=== PATIENT | female | born 1970 | race Caucasian/White ===

== ENCOUNTER 2018-01-26 11:44 | Outpatient (CLI) | payer MEDICAID, SELFPAY ==
[2018-01-26 13:10] LABS: Magnesium 1.6 mg/dL (1.8-2.4)
[2018-01-26 13:59] LABS: ESR 43 MM/HR (0-20)
[2018-01-26 15:12] LABS: Anion Gap 9.2 mmol/L (3-11); BUN 19 mg/dL (7-18); CO2 28.8 mmol/L (21.0-32.0); CREATININE 0.78 mg/dL (0.55-1.02); Calcium 8.5 mg/dL (8.5-10.1); Chloride 103 mmol/L (98-107); Glucose 96 mg/dL (70-100); Potassium 3.7 mmol/L (3.5-5.1); Sodium 141 mmol/L (136-145)
[2018-01-27 13:38] LABS: Lyme Ab w Rflx to Lyme Confirm Negative
[2018-01-27 23:57] LABS: Anaplasma phagocytophilum Negative (Negative); B. miyamotoi PCR Negative (Negative); Babesia divergens/MO-1 Negative (Negative); Babesia duncani Negative (Negative); Babesia microti Negative (Negative); Ehrlichia chaffeensis Negative (Negative); Ehrlichia ewingii/canis Negative (Negative); Ehrlichia muris eauclairensis Negative (Negative)
[2018-01-30 12:41] LABS: Rheumatoid Factor <8 IU/mL (<12.5)
[2018-01-30 16:03] LABS: ANA Interpretation Negative (NEGAT)
== END 2018-01-26 12:04 ==
PROVIDERS: PCP Nurse Practitioner Family; Visit Provider Nurse Practitioner Family
DX: M25.50 Pain in unspecified joint (principal); E83.42 Hypomagnesemia
CPT/HCPCS: 36415; 80048; 85652; 83735; 86038; 86431; 86618; 87798

== ENCOUNTER 2018-03-07 11:05 | Outpatient (CLI) | payer MEDICAID, SELFPAY ==
[2018-03-07 11:49] LABS: Anion Gap 9.3 mmol/L (3-11); BUN 17 mg/dL (7-18); CO2 27.7 mmol/L (21.0-32.0); Calcium 8.7 mg/dL (8.5-10.1); Chloride 101 mmol/L (98-107); Glucose 100 mg/dL (70-100); Magnesium 1.7 mg/dL (1.8-2.4); Potassium 4.1 mmol/L (3.5-5.1); Sodium 138 mmol/L (136-145)
== END 2018-03-07 11:25 ==
PROVIDERS: PCP Nurse Practitioner Family; Visit Provider Nurse Practitioner Family
DX: I10 Essential (primary) hypertension (principal); E83.42 Hypomagnesemia
CPT/HCPCS: 36415; 80048; 83735

== ENCOUNTER 2018-03-26 13:04 | Emergency (ER) | payer MEDICAID, SELFPAY ==
[2018-03-26 13:15] VITALS: BP 126/81; PULSE 88; RESP 16; TEMP 36.7; O2SAT 95
--- NOTE | 2018-03-26 13:24 | DI.RAD_ITS ---
SYMPTOM/DIAGNOSIS: LT DISTAL MIDDLE FINGER PAIN LEFT MIDDLE FINGER: Four views were obtained. No fracture is seen.
--- NOTE | 2018-03-26 13:25 | W.ED.GENAD ---
Discharge Plan Disposition Patient Disposition: HOME Discharge Details Chief Complaint: Orthopedic Clinical Impression: Other sprain of left middle finger, initial encounter, Hand pain, right Primary Care Provider: Malka Reis ED Provider: Se Moore Home Meds and New Rx's Prescriptions: Continue nifedipine 30 mg tablet extended release 30 mg PO DAILY Qty: 90 RF: 0 loratadine [Claritin] 10 mg tablet 10 mg PO DAILY Qty: 90 RF: 1 ranitidine HCl [Zantac Maximum Strength] 150 mg tablet 150 mg PO DAILY Qty: 90 RF: 3 ibuprofen 200 MG tablet 4 tab PO PRN RF: 0 fluticasone [Flovent HFA] 12 GM HFA aerosol inhaler 110 mcg Inhalation BID Qty: 1 RF: 4 albuterol sulfate [Proventil HFA] 6.7 GM HFA aerosol inhaler 1 - 2 puff Inhalation Q4H PRN Qty: 3 RF: 3 simvastatin 10 MG tablet 10 mg PO DAILY Qty: 90 RF: 3 lancets [OneTouch UltraSoft Lancets] 1 EACH misc 1 ea Miscellaneous BID PRNQty: 200 RF: 4 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 meter [9CookiesTouch Ultra2] 1 EACH kit 1 ea Miscellaneous DAILY Qty: 1 RF: 0 metformin 1,000 MG tablet 1,000 mg PO BID Qty: 180 RF: 4 levothyroxine 125 MCG tablet 125 mcg PO DAILY Qty: 90 RF: 4 insulin glargine [Lantus Solostar U-100 Insulin] 100 UNIT/1 ML insulin pen 30 unit Sub-Q HS Qty: 1 RF: 3 pen needle, diabetic 1 EACH needle 1 ea Miscellaneous DAILY Qty: 100 RF: 4 ONETOUCH ULTRA TEST STRIPS 1 EACH strip 1 ea Miscellaneous QID PRNQty: 400 RF: 4 ipratropium-albuterol 3 ML solution for nebulization 3 ml Inhalation QID PRNQty: 1 RF: 3 losartan 25 MG tablet 25 mg PO BID Qty: 180 RF: 4 magnesium chloride [Mag 64] 64 mg tablet,delayed release (DR/EC) 128 mg PO BID Qty: 120 RF: 2 Discharge Instructions Additional Instructions: follow up with Dr. Khan, call his office tomorrow for an appointment you can take 1000mg tylenol and 600mg ibuprofen every 6 hours for pain as needed Medical Decision Making 47 yo female states she was pushing down a blanket and her distal left middle finger bent back and she had pain at the DIP joint. She has full flexion at all the joints and extension at mcp and pcp joint but unable to extend at the dip joint of this finger.Will xray to eval for fx though likely has extensor tendor injury which will need outpatient f/u xray shows no fracture on my read. She is also stating that her right hand has been intermittently painful and swollen off and on, no swelling now, will xray to eval for possible evidence of osteo or less likely cancer, no redness or fevers so unlikely infection xrays negative on my read. Placed her in fingerstack splint of the left middle finger for suspect distal extensor tendon injury, she has seen Dr. Khan in the past and prefers to f/u with him. Differential Diagnosis sprain, tendon injury, contusion, fx Imaging Data Radiologic Study: Attestation: I personally reviewed and interpreted this imaging study as follows: Imaging: X-Ray My impression: no acute findings Radiologic Study #2: Attestation: I personally reviewed and interpreted this imaging study as follows: Imaging: X-Ray My impression: no acute findings HPI General Mode of arrival: ambulatory. Date/Time Provider Initiated Documentation: 03/26/18 13:24. Limitations to Documentation: no limitations. Information obtained by: patient. History of Present Illness 47 year old F presents to the emergency department with the chief complaint of left middle finger pain, described as moderate, with intensity rated at 5. Quality is described as aching, and is localized to the left and upper extremity. Patient reports no radiation. Patient started experiencing this hour(s) (1) and it has been constant. No relieving factors improve symptom(s), No exacerbating factors reported . Patient notes no other symptoms.. Patient did receive the following treatments prior to arrival, none Related Data Home Medications Medication Instructions Recorded Confirmed ibuprofen 4 tab PO PRN 09/12/13 03/26/18 fluticasone [Flovent HFA] 110 mcg INHALATION BID #1 inhaler 10/18/16 03/26/18 albuterol sulfate [Proventil HFA] 1 - 2 puff INHALATION Q4H PRN #3 03/03/17 03/26/18 inhaler 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 meter [OneTouch #1 kit 10/17/17 03/26/18 Ultra2] insulin glargine [Lantus Solostar 30 unit SUB-Q HS #1 box 10/17/17 03/26/18 U-100 Insulin] lancets [OneTouch UltraSoft #200 ea 10/17/17 03/26/18 Lancets] levothyroxine 125 mcg PO DAILY #90 tab 10/17/17 03/26/18 metformin 1,000 mg PO BID #180 tab-cap 10/17/17 03/26/18 pen needle, diabetic #100 ndl 10/17/17 03/26/18 simvastatin 10 mg PO DAILY #90 tab-cap 10/17/17 03/26/18 ipratropium-albuterol 3 ml INHALATION QID PRN #1 ea 11/21/17 03/26/18 losartan 25 mg PO BID #180 tab-cap 11/21/17 03/26/18 loratadine 10 mg tablet 10 mg PO DAILY #90 tab 01/26/18 03/26/18 ranitidine 150 mg tablet 150 mg PO DAILY #90 tab-cap 02/27/18 03/26/18 magnesium 64 mg (magnesium 128 mg PO BID #120 tab 03/13/18 03/26/18 chloride) tablet,delayed release nifedipine ER 30 mg 30 mg PO DAILY #90 tab 03/16/18 03/26/18 tablet,extended release Previous Rx's Medication Instructions Recorded albuterol sulfate [Proventil HFA] 1 - 2 puff INHALATION Q4H PRN #3 03/03/17 inhaler 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 meter [OneTouch #1 kit 10/17/17 Ultra2] insulin glargine [Lantus Solostar 30 unit SUB-Q HS #1 box 10/17/17 U-100 Insulin] levothyroxine 125 mcg PO DAILY #90 tab 10/17/17 metformin 1,000 mg PO BID #180 tab-cap 10/17/17 pen needle, diabetic #100 ndl 10/17/17 simvastatin 10 mg PO DAILY #90 tab-cap 10/17/17 losartan 25 mg PO BID #180 tab-cap 11/21/17 loratadine 10 mg tablet 10 mg PO DAILY #90 tab 01/26/18 ranitidine 150 mg tablet 150 mg PO DAILY #90 tab-cap 02/27/18 magnesium 64 mg (magnesium 128 mg PO BID #120 tab 03/13/18 chloride) tablet,delayed release nifedipine ER 30 mg 30 mg PO DAILY #90 tab 03/16/18 tablet,extended release Allergies Allergy/AdvReac Type Severity Reaction Status Date / Time No Known Allergies Allergy Unverified 03/26/18 13:26 General Stated Complaint: Orthopedic SAMMY: 4 Review of Systems Review of Systems All systems reviewed & are unremarkable except as noted in HPI and below Constitutional Denies chills and Denies fever(s) ENT Denies change in voice Cardiovascular Denies chest pain and Denies dyspnea Respiratory Denies dyspnea Gastrointestinal Denies abdominal pain, Denies nausea and Denies vomiting Genitourinary Denies dysuria Musculoskeletal Denies joint swelling Allergic/Immunologic Denies urticaria PFSH Family History Mother Essential hypertension Heart disease Hyperlipidemia Alcohol abuse Father Essential hypertension Diabetes Heart disease Cerebrovascular accident Hyperlipidemia Alcohol abuse Sister Depression Substance abuse Sister No problems noted. Brother No problems noted. Brother No problems noted. Son Asthma Daughter Asthma Depression Daughter Asthma Depression Maternal Grandfather Alcohol abuse Diabetes Asthma Cerebrovascular accident Essential hypertension Hyperlipidemia Heart disease Maternal Grandmother Essential hypertension Heart disease Paternal Grandfather No problems noted. Paternal Grandmother No problems noted. 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 Smoking/Tobacco Use Status: Never alcohol intake: never substance use type: does not use seatbelt use: always Surgical History History of repair of left hip joint (Inactive) Exam Const General: no acute distress Orientation: alert HENMT Head: normal to inspection Ears: external ears normal General nose exam: external nose normal Mouth: moist mucous membranes Eyes General: appearance normal, both eyes and all related structures Neck Neck: normal visual inspection Resp Effort & Inspection: normal respiratory effort and able to speak in complete sentences Cardio Rate: regular rate Skin General skin exam: no rashes or lesions noted Neuro General: alert and oriented x3 Extrem General: normal capillary refill Psych Mental Status: mental status grossly normal Course Vital Signs Temperature 36.7 C 03/26/18 13:15 Pulse 88 03/26/18 13:15 Respiratory Rate 16 03/26/18 13:15 Blood Pressure 126/81 03/26/18 13:15 Pulse Oximetry 95 03/26/18 13:15 Temperature 36.7 C 03/26/18 13:15 Temperature Source Temporal Artery Scan 03/26/18 13:15 Pulse 88 03/26/18 13:15 Respiratory Rate 16 03/26/18 13:15 Blood Pressure 126/81 03/26/18 13:15 Blood Pressure Position Sitting 03/26/18 13:15 Pulse Oximetry 95 03/26/18 13:15 Oxygen Delivery Method Room Air 03/26/18 13:15 Oxygen Flow Rate 0 03/26/18 13:15 Pain Level 2 03/26/18 13:15
--- NOTE | 2018-03-26 13:28 | ED.GENADUL_ITS ---
Discharge Plan Disposition Patient Disposition: HOME Discharge Details Chief Complaint: Orthopedic Clinical Impression: Other sprain of left middle finger, initial encounter, Hand pain, right Primary Care Provider: Malka Reis ED Provider: Se Moore Home Meds and New Rx's Prescriptions: Continue nifedipine 30 mg tablet extended release 30 mg PO DAILY Qty: 90 RF: 0 loratadine [Claritin] 10 mg tablet 10 mg PO DAILY Qty: 90 RF: 1 ranitidine HCl [Zantac Maximum Strength] 150 mg tablet 150 mg PO DAILY Qty: 90 RF: 3 ibuprofen 200 MG tablet 4 tab PO PRN RF: 0 fluticasone [Flovent HFA] 12 GM HFA aerosol inhaler 110 mcg Inhalation BID Qty: 1 RF: 4 albuterol sulfate [Proventil HFA] 6.7 GM HFA aerosol inhaler 1 - 2 puff Inhalation Q4H PRN Qty: 3 RF: 3 simvastatin 10 MG tablet 10 mg PO DAILY Qty: 90 RF: 3 lancets [OneTouch UltraSoft Lancets] 1 EACH misc 1 ea Miscellaneous BID PRNQty: 200 RF: 4 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 meter [[employer] Kin PacksTouch Ultra2] 1 EACH kit 1 ea Miscellaneous DAILY Qty: 1 RF: 0 metformin 1,000 MG tablet 1,000 mg PO BID Qty: 180 RF: 4 levothyroxine 125 MCG tablet 125 mcg PO DAILY Qty: 90 RF: 4 insulin glargine [Lantus Solostar U-100 Insulin] 100 UNIT/1 ML insulin pen 30 unit Sub-Q HS Qty: 1 RF: 3 pen needle, diabetic 1 EACH needle 1 ea Miscellaneous DAILY Qty: 100 RF: 4 ONETOUCH ULTRA TEST STRIPS 1 EACH strip 1 ea Miscellaneous QID PRNQty: 400 RF: 4 ipratropium-albuterol 3 ML solution for nebulization 3 ml Inhalation QID PRNQty: 1 RF: 3 losartan 25 MG tablet 25 mg PO BID Qty: 180 RF: 4 magnesium chloride [Mag 64] 64 mg tablet,delayed release (DR/EC) 128 mg PO BID Qty: 120 RF: 2 Discharge Instructions Additional Instructions: follow up with Dr. Khan, call his office tomorrow for an appointment you can take 1000mg tylenol and 600mg ibuprofen every 6 hours for pain as needed Medical Decision Making 47 yo female states she was pushing down a blanket and her distal left middle finger bent back and she had pain at the DIP joint. She has full flexion at all the joints and extension at mcp and pcp joint but unable to extend at the dip joint of this finger.Will xray to eval for fx though likely has extensor tendor injury which will need outpatient f/u xray shows no fracture on my read. She is also stating that her right hand has been intermittently painful and swollen off and on, no swelling now, will xray to eval for possible evidence of osteo or less likely cancer, no redness or fevers so unlikely infection xrays negative on my read. Placed her in fingerstack splint of the left middle finger for suspect distal extensor tendon injury, she has seen Dr. Khan in the past and prefers to f/u with him. Differential Diagnosis sprain, tendon injury, contusion, fx Imaging Data Radiologic Study: Attestation: I personally reviewed and interpreted this imaging study as follows: Imaging: X-Ray My impression: no acute findings Radiologic Study #2: Attestation: I personally reviewed and interpreted this imaging study as follows: Imaging: X-Ray My impression: no acute findings HPI General Mode of arrival: ambulatory . Date/Time Provider Initiated Documentation: 03/26/18 13:24 . Limitations to Documentation: no limitations . Information obtained by: patient . History of Present Illness 47 year old F presents to the emergency department with the chief complaint of left middle finger pain, described as moderate, with intensity rated at 5. Quality is described as aching, and is localized to the left and upper extremity. Patient reports no radiation. Patient started experiencing this hour(s) (1) and it has been constant. No relieving factors improve symptom(s ), No exacerbating factors reported . Patient notes no other symptoms.. Patient did receive the following treatments prior to arrival, none Related Data Home Medications Medication Instructions Recorded Confirmed ibuprofen 4 tab PO PRN 09/12/13 03/26/18 fluticasone [Flovent HFA] 110 mcg INHALATION BID #1 inhaler 10/18/16 03/26/18 albuterol sulfate [Proventil HFA] 1 - 2 puff INHALATION Q4H PRN #3 03/03/17 inhaler 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 meter [OneTouch #1 kit 10/17/17 03/26/18 Ultra2] insulin glargine [Lantus Solostar 30 unit SUB-Q HS #1 box 10/17/17 03/26/18 U-100 Insulin] lancets [OneTouch UltraSoft #200 ea 10/17/17 03/26/18 Lancets] levothyroxine 125 mcg PO DAILY #90 tab 10/17/17 03/26/18 metformin 1,000 mg PO BID #180 tab-cap 10/17/17 03/26/18 pen needle, diabetic #100 ndl 10/17/17 03/26/18 simvastatin 10 mg PO DAILY #90 tab-cap 10/17/17 03/26/18 ipratropium-albuterol 3 ml INHALATION QID PRN #1 ea 11/21/17 03/26/18 losartan 25 mg PO BID #180 tab-cap 11/21/17 03/26/18 loratadine 10 mg tablet 10 mg PO DAILY #90 tab 01/26/18 03/26/18 ranitidine 150 mg tablet 150 mg PO DAILY #90 tab-cap 02/27/18 03/26/18 magnesium 64 mg (magnesium 128 mg PO BID #120 tab 03/13/18 03/26/18 chloride) tablet,delayed release nifedipine ER 30 mg 30 mg PO DAILY #90 tab 03/16/18 03/26/18 tablet,extended release Previous Rx's Medication Instructions Recorded albuterol sulfate [Proventil HFA] 1 - 2 puff INHALATION Q4H PRN #3 03/03/17 inhaler 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 meter [OneTouch #1 kit 10/17/17 Ultra2] insulin glargine [Lantus Solostar 30 unit SUB-Q HS #1 box 10/17/17 U-100 Insulin] levothyroxine 125 mcg PO DAILY #90 tab 10/17/17 metformin 1,000 mg PO BID #180 tab-cap 10/17/17 pen needle, diabetic #100 ndl 10/17/17 simvastatin 10 mg PO DAILY #90 tab-cap 10/17/17 losartan 25 mg PO BID #180 tab-cap 11/21/17 loratadine 10 mg tablet 10 mg PO DAILY #90 tab 01/26/18 ranitidine 150 mg tablet 150 mg PO DAILY #90 tab-cap 02/27/18 magnesium 64 mg (magnesium 128 mg PO BID #120 tab 03/13/18 chloride) tablet,delayed release nifedipine ER 30 mg 30 mg PO DAILY #90 tab 03/16/18 tablet,extended release Allergies Allergy/AdvReac Type Severity Reaction Status Date / Time No Known Allergies Allergy Unverified 03/26/18 13:26 General Stated Complaint: Orthopedic SAMMY: 4 Review of Systems Review of Systems All systems reviewed & are unremarkable except as noted in HPI and below Constitutional Denies chills and Denies fever(s) ENT Denies change in voice Cardiovascular Denies chest pain and Denies dyspnea Respiratory Denies dyspnea Gastrointestinal Denies abdominal pain, Denies nausea and Denies vomiting Genitourinary Denies dysuria Musculoskeletal Denies joint swelling Allergic/Immunologic Denies urticaria PFSH Family History Mother Essential hypertension Heart disease Hyperlipidemia Alcohol abuse Father Essential hypertension Diabetes Heart disease Cerebrovascular accident Hyperlipidemia Alcohol abuse Sister Depression Substance abuse Sister No problems noted. Brother No problems noted. Brother No problems noted. Son Asthma Daughter Asthma Depression Daughter Asthma Depression Maternal Grandfather Alcohol abuse Diabetes Asthma Cerebrovascular accident Essential hypertension Hyperlipidemia Heart disease Maternal Grandmother Essential hypertension Heart disease Paternal Grandfather No problems noted. Paternal Grandmother No problems noted. 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 Smoking/Tobacco Use Status: Never alcohol intake: never substance use type: does not use seatbelt use: always Surgical History History of repair of left hip joint (Inactive) Exam Const General: no acute distress Orientation: alert HENMT Head: normal to inspection Ears: external ears normal General nose exam: external nose normal Mouth: moist mucous membranes Eyes General: appearance normal, both eyes and all related structures Neck Neck: normal visual inspection Resp Effort & Inspection: normal respiratory effort and able to speak in complete sentences Cardio Rate: regular rate Skin General skin exam: no rashes or lesions noted Neuro General: alert and oriented x3 Extrem General: normal capillary refill Psych Mental Status: mental status grossly normal Course Vital Signs Temperature 36.7 C 03/26/18 13:15 Pulse 88 03/26/18 13:15 Respiratory Rate 16 03/26/18 13:15 Blood Pressure 126/81 03/26/18 13:15 Pulse Oximetry 95 03/26/18 13:15 Temperature 36.7 C 03/26/18 13:15 Temperature Source Temporal Artery Scan 03/26/18 13:15 Pulse 88 03/26/18 13:15 Respiratory Rate 16 03/26/18 13:15 Blood Pressure 126/81 03/26/18 13:15 Blood Pressure Position Sitting 03/26/18 13:15 Pulse Oximetry 95 03/26/18 13:15 Oxygen Delivery Method Room Air 03/26/18 13:15 Oxygen Flow Rate 0 03/26/18 13:15 Pain Level 2 03/26/18 13:15
--- NOTE | 2018-03-26 13:49 | DI.RAD_ITS ---
SYMPTOM/DIAGNOSIS: PAIN AND INTERMITTENT SWELLING RIGHT HAND: Three views were obtained. No bony abnormality is seen.
== END 2018-03-26 15:18 | disposition home or self-care (01) ==
PROVIDERS: Emergency Provider Emergency Medicine; PCP Nurse Practitioner Family
DX: S63.613A Unspecified sprain of left middle finger, initial encounter (principal); M79.641 Pain in right hand; X50.1XXA Overexertion from prolonged static or awkward postures, initial encounter; E11.9 Type 2 diabetes mellitus without complications; Z79.84 Long term (current) use of oral hypoglycemic drugs
CPT/HCPCS: 99284; 73130; 73140; 99282

== ENCOUNTER 2018-04-10 11:32 | Outpatient (CLI) | payer MEDICAID, SELFPAY ==
[2018-04-10 13:56] LABS: ALT 21 U/L (12-78); AST 13 U/L (15-37); Albumin 3.4 g/dL (3.4-5.0); Alkaline Phosphatase 65 U/L (46-116); Anion Gap 12.7 mmol/L (3-11); BUN 20 mg/dL (7-18); Bilirubin, Total 0.2 mg/dL (0.2-1.0); CO2 25.3 mmol/L (21.0-32.0); CREATININE 0.74 mg/dL (0.55-1.02); Calcium 8.7 mg/dL (8.5-10.1); Chloride 103 mmol/L (98-107); FREE T4 1.37 ng/dL (0.76-1.46); Glucose 100 mg/dL (70-100); Magnesium 1.5 mg/dL (1.8-2.4); Potassium 3.8 mmol/L (3.5-5.1); Sodium 141 mmol/L (136-145); TSH 0.74 uIU/mL (0.358-3.74); Total Protein 6.8 g/dL (6.4-8.2)
== END 2018-04-10 11:52 ==
PROVIDERS: PCP Nurse Practitioner Family; Visit Provider Nurse Practitioner Family
DX: E03.9 Hypothyroidism, unspecified (principal); E11.9 Type 2 diabetes mellitus without complications; E78.5 Hyperlipidemia, unspecified; I10 Essential (primary) hypertension
CPT/HCPCS: 36415; 80053; 83036; 83735; 84439; 84443

== ENCOUNTER 2018-09-06 09:21 | Outpatient (CLI) | payer MEDICAID, SELFPAY ==
[2018-09-06 11:45] LABS: ALT 36 U/L (12-78); AST 23 U/L (15-37); Albumin 3.5 g/dL (3.4-5.0); Alkaline Phosphatase 69 U/L (46-116); Anion Gap 8.3 mmol/L (3-11); BUN 17 mg/dL (7-18); Bilirubin, Total 0.2 mg/dL (0.2-1.0); CO2 29.7 mmol/L (21.0-32.0); CREATININE 0.92 mg/dL (0.55-1.02); Calcium 9.1 mg/dL (8.5-10.1); Chloride 103 mmol/L (98-107); Cholesterol 178 mg/dL (50-200); Glucose 122 mg/dL (70-100); HDL Cholesterol 36 mg/dL (40-60); LDL CHOLESTEROL 126 mg/dL (<100); Potassium 4.3 mmol/L (3.5-5.1); Sodium 141 mmol/L (136-145); TSH 1.51 uIU/mL (0.358-3.74); Total Protein 6.8 g/dL (6.4-8.2); Triglyceride 124 mg/dL (30-150)
[2018-09-06 11:58] LABS: Hemoglobin A1C 6.3 % (4.5-6.2)
[2018-09-06 12:04] LABS: FREE T4 1.41 ng/dL (0.76-1.46)
[2018-09-08 13:28] LABS: Magnesium 1.7 mg/dL (1.8-2.4)
== END 2018-09-06 09:41 ==
PROVIDERS: PCP Nurse Practitioner Family; Visit Provider Nurse Practitioner Family
DX: E03.9 Hypothyroidism, unspecified (principal); E11.9 Type 2 diabetes mellitus without complications; E83.42 Hypomagnesemia
CPT/HCPCS: 36415; 80053; 80061; 83721; 83036; 83735; 84439; 84443

== ENCOUNTER 2018-09-08 13:54 | Outpatient (CLI) | payer MEDICAID, SELFPAY ==
--- NOTE | 2018-09-08 12:00 | DI.RAD_ITS ---
SYMPTOMS/DIAGNOSIS: POSTERIOR LEFT HEEL PAIN, M79.672 LEFT ANKLE AND LEFT FOOT: Three views of the ankle and three views of the foot were obtained. The ankle mortise is well maintained. There are prominent hypertrophic spurs of the Achilles and plantar fascia attachments on the calcaneus. Minimal mid foot hypertrophic degenerative changes are noted. No other significant bony abnormality is seen. Some nonspecific calcific or ossific densities are also seen associated with the Achilles insertion.
== END 2018-09-08 14:14 ==
PROVIDERS: PCP Nurse Practitioner Family; Visit Provider Nurse Practitioner Family
DX: M79.672 Pain in left foot (principal); M77.32 Calcaneal spur, left foot; M19.072 Primary osteoarthritis, left ankle and foot
CPT/HCPCS: 73610; 73630

== ENCOUNTER 2018-10-13 08:50 | Outpatient (CLI) | payer MEDICAID, SELFPAY | END 2018-10-13 09:10 | PROVIDERS: PCP Nurse Practitioner Family; Visit Provider Orthopaedic Surgery | DX: Z01.818 Encounter for other preprocedural examination (principal) ==

== ENCOUNTER 2018-10-21 13:58 | Emergency (ER) | payer MEDICAID, SELFPAY ==
[2018-10-21] VITALS (33 sets, daily range): BP systolic 148–185; BP diastolic 93–115; PULSE 66–95; RESP 7–34; TEMP 36.7–36.8; O2SAT 95–98
[2018-10-21 14:26] LABS: Bilirubin Negative (Negative); Blood Trace-intact (Negative); Clarity Clear; Glucose Negative (Negative); Ketones Negative (Negative); Leukocyte Esterase Negative (Negative); Nitrite Negative (Negative); Urobilinogen 0.2 EU/dL (Up TO 0.2)
[2018-10-21 14:47] LABS: RBC 0-2 (0-2); WBC Negative HPF (0-5)
[2018-10-21 14:48] LABS: Bacteria Negative HPF (Negative); C & S Indicated? No; Casts Negative LPF (Negative); Crystals Negative HPF (Negative); Epithelial Cells Few HPF (Negative); Mucus Negative (Negative); Other Cells Rare Renal (Negative)
--- NOTE | 2018-10-21 14:52 | W.ED.GENAD ---
Discharge Plan Disposition Patient Disposition: HOME Discharge Details Chief Complaint: FlankPain Clinical Impression: Hypertension, Abdominal pain Primary Care Provider: Malka Reis ED Provider: Guzman Hale Home Meds and New Rx's Prescriptions: Continued albuterol sulfate [Proventil HFA] 90 mcg/actuation HFA aerosol inhaler 1 - 2 puff Inhalation Q4H PRN Qty: 6.7 RF: 4 Flovent HFA 110 mcg/actuation HFA aerosol inhaler 110 mcg Inhalation BID Qty: 12 RF: 4 fluticasone propionate [Allergy Relief (fluticasone)] 50 mcg/actuation spray,suspension 2 spray MIKEL DAILY PRN (Reason: allergy symptoms) Qty: 15.8 RF: 4 ranitidine HCl [Zantac Maximum Strength] 150 mg tablet 150 mg PO DAILY Qty: 90 RF: 3 metformin 1,000 mg tablet 1,000 mg PO BID Qty: 180 RF: 4 losartan 25 mg tablet 25 mg PO BID Qty: 180 RF: 4 simvastatin 10 mg tablet 10 mg PO DAILY Qty: 90 RF: 4 magnesium L-lactate 84 mg tablet extended release 84 mg PO BID RF: 0 acetaminophen [Tylenol Extra Strength] 500 mg tablet 1,000 mg PO Q6H PRNRF: 0 ibuprofen [Advil] 200 mg tablet 200 mg PO QID PRNRF: 0 hydrochlorothiazide 12.5 mg tablet 25 mg PO DAILY Qty: 90 RF: 4 lancets [OneTouch UltraSoft Lancets] 1 EACH misc 1 ea Miscellaneous BID PRNQty: 200 RF: 4 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 meter [OneTouch Ultra2] 1 EACH kit 1 ea Miscellaneous DAILY Qty: 1 RF: 0 pen needle, diabetic 1 EACH needle 1 ea Miscellaneous DAILY Qty: 100 RF: 4 ONETOUCH ULTRA TEST STRIPS 1 EACH strip 1 ea Miscellaneous QID PRNQty: 400 RF: 4 ipratropium-albuterol 3 ML solution for nebulization 3 ml Inhalation QID PRNQty: 1 RF: 3 levothyroxine 112 mcg capsule 112 mcg PO DAILY Qty: 90 RF: 4 loratadine [Claritin] 10 mg tablet 10 mg PO DAILY PRN (Reason: allergy symptoms) Qty: 90 RF: 4 Lantus Solostar U-100 Insulin 100 unit/mL (3 mL) insulin pen 26 unit Sub-Q HS Qty: 15 RF: 4 diclofenac sodium 75 mg Tablet,Delayed Release (Dr/Ec) BID PRNRF: 0 No Action amlodipine 5 mg tablet 5 mg PO DAILY Qty: 90 RF: 0 Discharge Instructions Instructions: Abdominal Pain (ED), Hypertension (ED) Additional Instructions: Please contact your primary care physician to arrange follow-up. Call on Tuesday. Return to the ER for any worsening or new concerning symptoms. Referrals: Malka Reis NP [Primary Care Provider] - Discharge Data Discharge Date/Time-TO BE ENTERED AT DEPARTURE: 10/21/18 20:15 Medical Decision Making 14:55 --48-year-old female with history of diabetes, hypertension, hyperlipidemia, GERD, here with left flank pain since early this morning and intermittent upper abdominal pain for the past 2 to 3 days. Patient has recently had elevated blood pressure and antihypertensives have been increased. Unclear etiology for symptoms at this point. Plan to check screening labs including LFTs, lipase, electrolytes and CK. --labs reviewed and nondiagnostic. Mild leukocytosis noted. Hypomagnesemia noted. Will give 1 g of magnesium IV. Hypokalemia noted. We will give potassium 20 mEq IV after completion of magnesium. --CT of the abdomen and pelvis was interpreted by radiology: FINDINGS: Partially calcified gallbladder wall. Intrauterine device in the lower uterine segment. Diverticulosis without evidence of diverticulitis. Normal appearing solid organs. No intestinal obstruction. No obstructive uropathy. No free fluid. No free air. No inflammatory changes. IMPRESSION: No specific etiology identified for the patient's symptoms. --Patient reassessed and continues to have discomfort. Patient declined IV analgesia. -- All results were discussed with the patient. Patient understands importance of timely outpatient follow-up. Patient continues to have elevated blood pressure. Patient's PCP is not available at this time to discuss changes to antihypertensives. Patient will continue to monitor and foolowup with primary care physician about adjusting antihypertensive. Disposition decision was made weighing the risks and benefits of hospitalization versus outpatient treatment, the risk for further decompensation, and the patient's wishes. The patient was stable and requested discharge. Prior to discharge, my usual and customary return precautions were reviewed with the patient - this included follow-up instructions and reason to return to the emergency department if condition worsens, does not improve as expected, or other new concerns arise. HPI General Mode of arrival: ambulatory. Date/Time Provider Initiated Documentation: 10/21/18 14:14. Limitations to Documentation: no limitations. Information obtained by: patient. HPI Narrative: 48-year-old female with history of type 2 diabetes, hypertension, hyperlipidemia, asthma, GERD, here with chief complaint of flank pain. Patient notes that last night sometime in the [place] she developed left flank pain. Pain is been waxing and waning since onset. Pain is described as an ache. Pain is moderate intensity. Patient also notes she has had intermittent, crampy upper abdominal pain for the past 2 to 3 days. Patient states yesterday she was urinating less than usual and it was dark. Today she urinated it was more clear. Patient notes she is had recently elevated blood pressure and has had both hydrochlorothiazide and losartan increased by her primary care physician. Diclofenac was recently discontinued. Related Data Home Medications Medication Instructions Recorded Confirmed 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 meter [OneTouch #1 kit 10/17/17 10/25/18 Ultra2] lancets [OneTouch UltraSoft #200 ea 10/17/17 10/25/18 Lancets] pen needle, diabetic #100 ndl 10/17/17 10/25/18 ipratropium-albuterol 3 ml INHALATION QID PRN #1 ea 11/21/17 10/25/18 ranitidine 150 mg tablet 150 mg PO DAILY #90 tab-cap 02/27/18 10/25/18 levothyroxine 112 mcg capsule 112 mcg PO DAILY #90 cap 04/10/18 10/25/18 loratadine 10 mg tablet 10 mg PO DAILY PRN #90 tab 04/10/18 10/25/18 albuterol sulfate HFA 90 1 - 2 puff INHALATION Q4H PRN #6.7 04/27/18 10/25/18 mcg/actuation aerosol inhaler gm fluticasone propionate 110 110 mcg INHALATION BID #12 gm 04/27/18 10/25/18 mcg/actuation HFA aerosol inhaler insulin glargine (U-100) 100 26 unit SUB-Q HS #15 ml 05/03/18 10/25/18 unit/mL (3 mL) subcutaneous pen fluticasone propionate 50 2 spray MIKEL DAILY PRN #15.8 gm 09/06/18 10/25/18 mcg/actuation nasal spray,suspension losartan 25 mg tablet 25 mg PO BID #180 tab-cap 09/08/18 10/25/18 metformin 1,000 mg tablet 1,000 mg PO BID #180 tab-cap 09/08/18 10/25/18 simvastatin 10 mg tablet 10 mg PO DAILY #90 tab-cap 09/08/18 10/25/18 acetaminophen 500 mg tablet 1,000 mg PO Q6H PRN tab 10/12/18 10/25/18 ibuprofen 200 mg tablet 200 mg PO QID PRN 10/12/18 10/25/18 magnesium L-lactate ER 84 mg 84 mg PO BID tab 10/12/18 10/25/18 tablet,extended release hydrochlorothiazide 12.5 mg tablet 25 mg PO DAILY #90 tab 10/16/18 10/25/18 diclofenac sodium BID PRN 10/21/18 10/25/18 amlodipine 5 mg tablet 5 mg PO DAILY #90 tab 10/25/18 10/25/18 Previous Rx's Medication Instructions Recorded 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 meter [Plum BabyTouch #1 kit 10/17/17 Ultra2] pen needle, diabetic #100 ndl 10/17/17 ranitidine 150 mg tablet 150 mg PO DAILY #90 tab-cap 02/27/18 levothyroxine 112 mcg capsule 112 mcg PO DAILY #90 cap 04/10/18 loratadine 10 mg tablet 10 mg PO DAILY PRN #90 tab 04/10/18 albuterol sulfate HFA 90 1 - 2 puff INHALATION Q4H PRN #6.7 04/27/18 mcg/actuation aerosol inhaler gm fluticasone propionate 110 110 mcg INHALATION BID #12 gm 04/27/18 mcg/actuation HFA aerosol inhaler insulin glargine (U-100) 100 26 unit SUB-Q HS #15 ml 05/03/18 unit/mL (3 mL) subcutaneous pen fluticasone propionate 50 2 spray MIKEL DAILY PRN #15.8 gm 09/06/18 mcg/actuation nasal spray,suspension losartan 25 mg tablet 25 mg PO BID #180 tab-cap 09/08/18 metformin 1,000 mg tablet 1,000 mg PO BID #180 tab-cap 09/08/18 simvastatin 10 mg tablet 10 mg PO DAILY #90 tab-cap 09/08/18 hydrochlorothiazide 12.5 mg tablet 25 mg PO DAILY #90 tab 10/16/18 amlodipine 5 mg tablet 5 mg PO DAILY #90 tab 10/25/18 Allergies Allergy/AdvReac Type Severity Reaction Status Date / Time No Known Allergies Allergy Verified 10/25/18 13:19 General Stated Complaint: FlankPain SAMMY: 3 Review of Systems Review of Systems All systems reviewed & are unremarkable except as noted in HPI and below Constitutional Denies body ache(s) and Denies fever(s) Gastrointestinal Reports as per HPI Genitourinary Reports as per HPI, Denies hematuria and Reports flank pain PFSH Medical History IUD surveillance (Inactive 09/01/17) Essential hypertension (Chronic) GERD (gastroesophageal reflux disease) (Chronic) Heavy menstrual bleeding (Chronic) Hyperlipidemia (Chronic) Hypothyroidism (Chronic) Mild persistent asthma (Chronic) Morbidly obese (Chronic) FLIP (obstructive sleep apnea) (Chronic) Patellofemoral arthritis of right knee (Chronic) Type 2 diabetes mellitus (Chronic) Surgical History History of repair of left hip joint (Inactive) Family History Mother Essential hypertension Heart disease Hyperlipidemia Alcohol abuse Father Essential hypertension Diabetes Heart disease Stroke Hyperlipidemia Alcohol abuse Sister Depression Substance abuse Sister No problems noted. Brother No problems noted. Brother No problems noted. Son Asthma Daughter Asthma Depression Daughter Asthma Depression Maternal Grandfather Alcohol abuse Diabetes Asthma Stroke Essential hypertension Hyperlipidemia Heart disease Maternal Grandmother Essential hypertension Heart disease Paternal Grandfather No problems noted. Paternal Grandmother No problems noted. 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 What type of physical activity do you participate in: walking Frequency: daily Seatbelt use: always Do you feel safe at home: Yes Do you feel safe in your relationship?: Yes Exam Const General: cooperative and no acute distress Nutritional Appearance: obese Orientation: alert and awake HENMT Head: normocephalic Mouth: moist mucous membranes Eyes Conjunctivae: normal conjunctivae Sclera: normal sclerae EOM: EOM intact bilaterally Neck Neck: trachea midline Resp Auscultation: clear to auscultation bilaterally, no rales, no rhonchi and no wheezes Cardio Jugular venous pressure: no JVD Rate: regular rate and not tachycardic Rhythm: regular rhythm GI Palpation: soft, not firm, no guarding, no masses, not rigid and tender in the epigastrum and in the LUQ Back/Spine/Pelvis Back: no CVA tenderness Skin General skin exam: no rashes or lesions noted Neuro General: alert, awake, oriented x3 and tone normal Extrem General: no edema Psych Appearance: grossly normal Mental Status: mental status grossly normal Course Vital Signs Temperature 36.7 C 10/21/18 14:03 Pulse 86 10/21/18 14:03 Respiratory Rate 16 10/21/18 14:03 Blood Pressure 178/107 H 10/21/18 14:03 Pulse Oximetry 95 10/21/18 14:03 Temperature 36.7 C 10/21/18 14:03 Temperature Source Tympanic 10/21/18 14:03 Pulse 86 10/21/18 14:03 Respiratory Rate 16 10/21/18 14:03 Respiratory Effort Non-Labored 10/21/18 14:19 Blood Pressure 178/107 H 10/21/18 14:03 Blood Pressure Position Sitting 10/21/18 14:03 Pulse Oximetry 95 10/21/18 14:03 Oxygen Delivery Method Room Air 10/21/18 14:03 Oxygen Flow Rate 0 10/21/18 14:03 Pain Level 5 10/21/18 14:20 Lab/Test Results Lab/Test Results: Laboratory Tests Range/Units 10/21/18 14:20 Urine Color (Yellow) Yellow Urine Clarity Clear Urine pH (5-8) 6.0 Ur Specific [place] (1.005-1.025) 1.020 Urine Protein (Negative) mg/dL Negative Urine Ketones (Negative) mg/dL Negative Urine Blood (Negative) Trace-intact H Urine Nitrite (Negative) Negative Urine Bilirubin (Negative) Negative Urine Urobilinogen (Up TO 0.2) EU/dL 0.2 Ur Leukocyte Esterase (Negative) Negative Urine RBC (0-2) 0-2 Urine WBC (0-5) HPF Negative Ur Epithelial Cells (Negative) HPF Few Urine Crystals (Negative) HPF Negative Urine Bacteria (Negative) HPF Negative Urine Casts (Negative) LPF Negative Urine Mucus (Negative) Negative Urine Other (Negative) Rare renal Ur Culture Indicated? No Urine Glucose (Negative) mg/dL Negative POC- Test(urine) Negative
--- NOTE | 2018-10-21 14:58 | ED.GENADUL_ITS ---
Discharge Plan Disposition Patient Disposition: HOME Discharge Details Chief Complaint: FlankPain Clinical Impression: Hypertension, Abdominal pain Primary Care Provider: Malka Reis ED Provider: Guzman Hale Home Meds and New Rx's Prescriptions: Continued albuterol sulfate [Proventil HFA] 90 mcg/actuation HFA aerosol inhaler 1 - 2 puff Inhalation Q4H PRN Qty: 6.7 RF: 4 Flovent HFA 110 mcg/actuation HFA aerosol inhaler 110 mcg Inhalation BID Qty: 12 RF: 4 fluticasone propionate [Allergy Relief (fluticasone)] 50 mcg/actuation spray,suspension 2 spray MIKEL DAILY PRN (Reason: allergy symptoms) Qty: 15.8 RF: 4 ranitidine HCl [Zantac Maximum Strength] 150 mg tablet 150 mg PO DAILY Qty: 90 RF: 3 metformin 1,000 mg tablet 1,000 mg PO BID Qty: 180 RF: 4 losartan 25 mg tablet 25 mg PO BID Qty: 180 RF: 4 simvastatin 10 mg tablet 10 mg PO DAILY Qty: 90 RF: 4 magnesium L-lactate 84 mg tablet extended release 84 mg PO BID RF: 0 acetaminophen [Tylenol Extra Strength] 500 mg tablet 1,000 mg PO Q6H PRNRF: 0 ibuprofen [Advil] 200 mg tablet 200 mg PO QID PRNRF: 0 hydrochlorothiazide 12.5 mg tablet 25 mg PO DAILY Qty: 90 RF: 4 lancets [OneTouch UltraSoft Lancets] 1 EACH misc 1 ea Miscellaneous BID PRNQty: 200 RF: 4 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 meter [OneTouch Ultra2] 1 EACH kit 1 ea Miscellaneous DAILY Qty: 1 RF: 0 pen needle, diabetic 1 EACH needle 1 ea Miscellaneous DAILY Qty: 100 RF: 4 ONETOUCH ULTRA TEST STRIPS 1 EACH strip 1 ea Miscellaneous QID PRNQty: 400 RF: 4 ipratropium-albuterol 3 ML solution for nebulization 3 ml Inhalation QID PRNQty: 1 RF: 3 levothyroxine 112 mcg capsule 112 mcg PO DAILY Qty: 90 RF: 4 loratadine [Claritin] 10 mg tablet 10 mg PO DAILY PRN (Reason: allergy symptoms) Qty: 90 RF: 4 Lantus Solostar U-100 Insulin 100 unit/mL (3 mL) insulin pen 26 unit Sub-Q HS Qty: 15 RF: 4 diclofenac sodium 75 mg Tablet,Delayed Release (Dr/Ec) BID PRNRF: 0 No Action amlodipine 5 mg tablet 5 mg PO DAILY Qty: 90 RF: 0 Discharge Instructions Instructions: Abdominal Pain (ED), Hypertension (ED) Additional Instructions: Please contact your primary care physician to arrange follow-up. Call on Tuesday. Return to the ER for any worsening or new concerning symptoms. Referrals: Malka Reis NP [Primary Care Provider] - Discharge Data Discharge Date/Time-TO BE ENTERED AT DEPARTURE: 10/21/18 20:15 Medical Decision Making 14:55 --48-year-old female with history of diabetes, hypertension, hyperlipidemia, GERD, here with left flank pain since early this morning and intermittent upper abdominal pain for the past 2 to 3 days. Patient has recently had elevated blood pressure and antihypertensives have been increased. Unclear etiology for symptoms at this point. Plan to check screening labs including LFTs, lipase, electrolytes and CK. --labs reviewed and nondiagnostic. Mild leukocytosis noted. Hypomagnesemia noted. Will give 1 g of magnesium IV. Hypokalemia noted. We will give potassium 20 mEq IV after completion of magnesium. --CT of the abdomen and pelvis was interpreted by radiology: FINDINGS: Partially calcified gallbladder wall. Intrauterine device in the lower uterine segment. Diverticulosis without evidence of diverticulitis. Normal appearing solid organs. No intestinal obstruction. No obstructive uropathy. No free fluid. No free air. No inflammatory changes. IMPRESSION: No specific etiology identified for the patient's symptoms. --Patient reassessed and continues to have discomfort. Patient declined IV analgesia. -- All results were discussed with the patient. Patient understands importance of timely outpatient follow-up. Patient continues to have elevated blood pressure. Patient's PCP is not available at this time to discuss changes to antihypertensives. Patient will continue to monitor and foolowup with primary care physician about adjusting antihypertensive. Disposition decision was made weighing the risks and benefits of hospitalization versus outpatient treatment, the risk for further decompensation, and the megan ent's wishes. The patient was stable and requested discharge. Prior to discharge, my usual and customary return precautions were reviewed with the patient - this included follow-up instructions and reason to return to the emergency department if condition worsens, does not improve as expected, or other new concerns arise. HPI General Mode of arrival: ambulatory . Date/Time Provider Initiated Documentation: 10/21/18 14:14 . Limitations to Documentation: no limitations . Information obtained by: patient . HPI Narrative: 48-year-old female with history of type 2 diabetes, hypertension, hyperlipidemia, asthma, GERD, here with chief complaint of flank pain. 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 Pain is been waxing and waning since onset. Pain is described as an ache. Pain is moderate intensity. Patient also notes she has had intermittent, crampy upper abdominal pain for the past 2 to 3 days. Patient states yesterday she was urinating less than usual and it was dark. Today she urinated it was more clear. Patient notes she is had recently elevated blood pressure and has had both hydrochlorothiazide and l osartan increased by her primary care physician. Diclofenac was recently discontinued. Related Data Home Medications Medication Instructions Recorded Confirmed 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 meter [OneTouch #1 kit 10/17/17 10/25/18 Ultra2] lancets [OneTouch UltraSoft #200 ea 10/17/17 10/25/18 Lancets] pen needle, diabetic #100 ndl 10/17/17 10/25/18 ipratropium-albuterol 3 ml INHALATION QID PRN #1 ea 11/21/17 10/25/18 ranitidine 150 mg tablet 150 mg PO DAILY #90 tab-cap 02/27/18 10/25/18 levothyroxine 112 mcg capsule 112 mcg PO DAILY #90 cap 04/10/18 10/25/18 loratadine 10 mg tablet 10 mg PO DAILY PRN #90 tab 04/10/18 10/25/18 albuterol sulfate HFA 90 1 - 2 puff INHALATION Q4H PRN #6.7 04/27/18 10/25/18 mcg/actuation aerosol inhaler gm fluticasone propionate 110 110 mcg INHALATION BID #12 gm 04/27/18 10/25/18 mcg/actuation HFA aerosol inhaler insulin glargine (U-100) 100 26 unit SUB-Q HS #15 ml 05/03/18 10/25/18 unit/mL (3 mL) subcutaneous pen fluticasone propionate 50 2 spray MIKEL DAILY PRN #15.8 gm 09/06/18 10/25/18 mcg/actuation nasal spray,suspension losartan 25 mg tablet 25 mg PO BID #180 tab-cap 09/08/18 10/25/18 metformin 1,000 mg tablet 1,000 mg PO BID #180 tab-cap 09/08/18 10/25/18 simvastatin 10 mg tablet 10 mg PO DAILY #90 tab-cap 09/08/18 10/25/18 acetaminophen 500 mg tablet 1,000 mg PO Q6H PRN tab 10/12/18 10/25/18 ibuprofen 200 mg tablet 200 mg PO QID PRN 10/12/18 10/25/18 magnesium L-lactate ER 84 mg 84 mg PO BID tab 10/12/18 10/25/18 tablet,extended release hydrochlorothiazide 12.5 mg tablet 25 mg PO DAILY #90 tab 10/16/18 10/25/18 diclofenac sodium BID PRN 10/21/18 10/25/18 amlodipine 5 mg tablet 5 mg PO DAILY #90 tab 10/25/18 10/25/18 Previous Rx's Medication Instructions Recorded 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 meter [Which[employer]comTouch #1 kit 10/17/17 Ultra2] pen needle, diabetic #100 ndl 10/17/17 ranitidine 150 mg tablet 150 mg PO DAILY #90 tab-cap 02/27/18 levothyroxine 112 mcg capsule 112 mcg PO DAILY #90 cap 04/10/18 loratadine 10 mg tablet 10 mg PO DAILY PRN #90 tab 04/10/18 albuterol sulfate HFA 90 1 - 2 puff INHALATION Q4H PRN #6.7 04/27/18 mcg/actuation aerosol inhaler gm fluticasone propionate 110 110 mcg INHALATION BID #12 gm 04/27/18 mcg/actuation HFA aerosol inhaler insulin glargine (U-100) 100 26 unit SUB-Q HS #15 ml 05/03/18 unit/mL (3 mL) subcutaneous pen fluticasone propionate 50 2 spray MIKEL DAILY PRN #15.8 gm 09/06/18 mcg/actuation nasal spray,suspension losartan 25 mg tablet 25 mg PO BID #180 tab-cap 09/08/18 metformin 1,000 mg tablet 1,000 mg PO BID #180 tab-cap 05/03/19 simvastatin 10 mg tablet 10 mg PO DAILY #90 tab-cap 09/08/18 hydrochlorothiazide 12.5 mg tablet 25 mg PO DAILY #90 tab 10/16/18 amlodipine 5 mg tablet 5 mg PO DAILY #90 tab 10/25/18 Allergies Allergy/AdvReac Type Severity Reaction Status Date / Time No Known Allergies Allergy Verified 10/25/18 13:19 General Stated Complaint: FlankPain SAMMY: 3 Review of Systems Review of Systems All systems reviewed & are unremarkable except as noted in HPI and below Constitutional Denies body ache(s) and Denies fever(s) Gastrointestinal Reports as per HPI Genitourinary Reports as per HPI, Denies hematuria and Reports flank pain PFSH Medical History IUD surveillance (Inactive 09/01/17) Essential hypertension (Chronic) GERD (gastroesophageal reflux disease) (Chronic) Heavy menstrual bleeding (Chronic) Hyperlipidemia (Chronic) Hypothyroidism (Chronic) Mild persistent asthma (Chronic) Morbidly obese (Chronic) FLIP (obstructive sleep apnea) (Chronic) Patellofemoral arthritis of right knee (Chronic) Type 2 diabetes mellitus (Chronic) Surgical History History of repair of left hip joint (Inactive) Family History Mother Essential hypertension Heart disease Hyperlipidemia Alcohol abuse Father Essential hypertension Diabetes Heart disease Stroke Hyperlipidemia Alcohol abuse Sister Depression Substance abuse Sister No problems noted. Brother No problems noted. Brother No problems noted. Son Asthma Daughter Asthma Depression Daughter Asthma Depression Maternal Grandfather Alcohol abuse Diabetes Asthma Stroke Essential hypertension Hyperlipidemia Heart disease Maternal Grandmother Essential hypertension Heart disease Paternal Grandfather No problems noted. Paternal Grandmother No problems noted. 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 What type of physical activity do you participate in: walking Frequency: daily Seatbelt use: always Do you feel safe at home: Yes Do you feel safe in your relationship?: Yes Exam Const General: cooperative and no acute distress Nutritional Appearance: obese Orientation: alert and awake HENMT Head: normocephalic Mouth: moist mucous membranes Eyes Conjunctivae: normal conjunctivae Sclera: normal sclerae EOM: EOM intact bilaterally Neck Neck: trachea midline Resp Auscultation: clear to auscultation bilaterally, no rales, no rhonchi and no wheezes Cardio Jugular venous pressure: no JVD Rate: regular rate and not tachycardic Rhythm: regular rhythm GI Palpation: soft, not firm, no guarding, no masses, not rigid and tender in the epigastrum and in the LUQ Back/Spine/Pelvis Back: no CVA tenderness Skin General skin exam: no rashes or lesions noted Neuro General: alert, awake, oriented x3 and tone normal Extrem General: no edema Psych Appearance: grossly normal Mental Status: mental status grossly normal Course Vital Signs Temperature 36.7 C 10/21/18 14:03 Pulse 86 10/21/18 14:03 Respiratory Rate 16 10/21/18 14:03 Blood Pressure 178/107 H 10/21/18 14:03 Pulse Oximetry 95 10/21/18 14:03 Temperature 36.7 C 10/21/18 14:03 Temperature Source Tympanic 10/21/18 14:03 Pulse 86 10/21/18 14:03 Respiratory Rate 16 10/21/18 14:03 Respiratory Effort Non-Labored 10/21/18 14:19 Blood Pressure 178/107 H 10/21/18 14:03 Blood Pressure Position Sitting 10/21/18 14:03 Pulse Oximetry 95 10/21/18 14:03 Oxygen Delivery Method Room Air 10/21/18 14:03 Oxygen Flow Rate 0 10/21/18 14:03 Pain Level 5 10/21/18 14:20 Lab/Test Results Lab/Test Results: Laboratory Tests Range/Units 10/21/18 14:20 Urine Color (Yellow) Yellow Urine Clarity Clear Urine pH (5-8) 6.0 Ur Specific Lebeau (1.005-1.025) 1.020 Urine Protein (Negative) mg/dL Negative Urine Ketones (Negative) mg/dL Negative Urine Blood (Negative) Trace-intact H Urine Nitrite (Negative) Negative Urine Bilirubin (Negative) Negative Urine Urobilinogen (Up TO 0.2) EU/dL 0.2 Ur Leukocyte Esterase (Negative) Negative Urine RBC (0-2) 0-2 Urine WBC (0-5) HPF Negative Ur Epithelial Cells (Negative) HPF Few Urine Crystals (Negative) HPF Negative Urine Bacteria (Negative) HPF Negative Urine Casts (Negative) LPF Negative Urine Mucus (Negative) Negative Urine Other (Negative) Rare renal Ur Culture Indicated? No Urine Glucose (Negative) mg/dL Negative POC- Test(urine) Negative
[2018-10-21] MEDS: Normal Saline 1,000 ML 125 ML IV (15:05)
[2018-10-21 15:23] LABS: Lactate-non-spesis 1.5 mmol/l (0.6-1.4)
[2018-10-21 15:29] LABS: Abs Immature Grans 0.01 k/cumm (0.0-0.09); Absolute Basophil Count 0.06 k/cumm (0.0-0.2); Absolute Eosinophil Count 0.38 k/cumm (0.0-0.7); Absolute Monocyte Count 0.67 k/cumm (0.11-0.7); Absolute Neutrophil Count 6.96 k/cumm (1.2-6.7); Basophils % 0.5; Eosinophils % 3.4; HCT 42.3 % (36.0-46.0); HGB 14.3 g/dL (12.0-15.5); Immature Grans % 0.1; Lymphocytes % 28.4; Mean Corp. HGB Concentration 33.8 g/dL (32.0-36.0); Mean Corpuscular Hemoglobin 29.7 pg (27.0-33.0); Mean Corpuscular Volume 87.8 fL (80-95); Mean Platelet Volume 10.6 fL (8.0-11.0); Monocytes % 5.9; Neutrophils % 61.7; Platelet Count 359 x1000/uL (130-400); RBC 4.82 m/cumm (4.00-5.20); RBC Distribution Width 13.1 % (11.7-14.6); White Blood Cell Count 11.28 k/cumm (4.4-10.8)
[2018-10-21 15:42] LABS: ALT 29 U/L (12-78); AST 14 U/L (15-37); Albumin 3.7 g/dL (3.4-5.0); Alkaline Phosphatase 73 U/L (46-116); Anion Gap 10.9 mmol/L (3-11); BUN 17 mg/dL (7-18); Bilirubin, Total 0.2 mg/dL (0.2-1.0); CO2 28.1 mmol/L (21.0-32.0); Chloride 99 mmol/L (98-107); Creatine Kinase 71 U/L (26-192); Glucose 152 mg/dL (70-100); Magnesium 1.6 mg/dL (1.8-2.4); Potassium 3.1 mmol/L (3.5-5.1); Sodium 138 mmol/L (136-145); Total Protein 7.9 g/dL (6.4-8.2)
--- NOTE | 2018-10-21 16:11 | DI.CT_ITS ---
SYMPTOMS/DIAGNOSIS: ABDOMINAL PAIN, LEFT UPPER QUADRANT > RIGHT UPPER QUADRANT; LEFT FLANK PAIN CT OF THE ABDOMEN AND PELVIS: Images were performed from the lung bases through the ischial tuberosities after IV and without oral contrast. The lung bases are clear. The heart size is normal. Calcifications are seen along the gallbladder wall. There is no gallbladder wall thickening, or visible stones or biliary dilatation. There may be slight fatty infiltration of the liver. The spleen is normal in size. The pancreas, adrenals and kidneys are unremarkable. There is no bowel dilatation or inflammatory change. The appendix appears normal. An IUD is seen, which appears inferiorly positioned in the cervix and lower uterine segment. The urinary bladder is nearly empty but unremarkable. There is a right renal cyst. Scarring is noted on the left kidney. No stones or hydronephrosis is seen. The ovaries are unremarkable. IMPRESSION: No acute abnormality. Calcification is seen in the gallbladder wall. The IUD appears inferiorly positioned in the cervix and lower uterine segment.
[2018-10-21] MEDS: Omnipaque 350 MG/ML 100 ML BTL IJ (16:38)
[2018-10-21] MEDS: MAGNESIUM SULFATE 1 GM/100 ML BAG IVPB (16:45)
--- NOTE | 2018-10-21 17:11 | DI.VRAD_ITS ---
EXAM: CT Abdomen and Pelvis With Contrast EXAM DATE/TIME: 10/21/2018 4:12 PM CLINICAL HISTORY: 48 years old, female; Abdominal pain and other: Luq>ruq pain, left flank pain; Additional info: Iud TECHNIQUE: Imaging protocol: Axial computed tomography images of the abdomen and pelvis with intravenous contrast. Coronal and sagittal reformatted images were created and reviewed. COMPARISON: CR PELVIS AP 07/21/2017 11:31 AM FINDINGS: Partially calcified gallbladder wall. Intrauterine device in the lower uterine segment. Diverticulosis without evidence of diverticulitis. Normal appearing solid organs. No intestinal obstruction. No obstructive uropathy. No free fluid. No free air. No inflammatory changes. IMPRESSION: No specific etiology identified for the patient's symptoms. Dictated and Authenticated by: Tristin Garcia MD. Ordering:STANTON Hinds MD
[2018-10-21] MEDS: POTASSIUM CHLORIDE 20 MEQ/100 ML BAG 50 MEQ IVPB (17:55)
--- NOTE | 2018-10-21 19:39 | NUR.NOTE ---
Nursing Note: Pt given meal tray and water to drink.
== END 2018-10-21 20:15 | disposition home or self-care (01) ==
PROVIDERS: Emergency Provider Student in an Organized Health Care Education/Training Program; PCP Nurse Practitioner Family
DX: I10 Essential (primary) hypertension (principal); R10.10 Upper abdominal pain, unspecified; E83.42 Hypomagnesemia; D72.9 Disorder of white blood cells, unspecified; E11.9 Type 2 diabetes mellitus without complications; Z79.4 Long term (current) use of insulin
CPT/HCPCS: 36415; 80053; 82550; 96361; 96365; 96366; 96367; 99285; 74177; 81003; 81015; 83605; 83735; 85025; 99284; J3475; J3480; J3490

== ENCOUNTER 2018-11-02 11:54 | Outpatient (CLI) | payer MEDICAID, SELFPAY ==
[2018-11-02 13:48] LABS: Anion Gap 13.3 mmol/L (3-11); BUN 17 mg/dL (7-18); CO2 26.7 mmol/L (21.0-32.0); CREATININE 0.92 mg/dL (0.55-1.02); Calcium 9.1 mg/dL (8.5-10.1); Chloride 102 mmol/L (98-107); Glucose 134 mg/dL (70-100); Magnesium 1.7 mg/dL (1.8-2.4); Potassium 3.6 mmol/L (3.5-5.1); Sodium 142 mmol/L (136-145)
== END 2018-11-02 12:14 ==
PROVIDERS: PCP Nurse Practitioner Family; Visit Provider Nurse Practitioner Family
DX: E83.42 Hypomagnesemia (principal); E87.6 Hypokalemia; I10 Essential (primary) hypertension
CPT/HCPCS: 36415; 80048; 83735

== ENCOUNTER 2019-02-23 11:29 | Outpatient (CLI) | payer SELFPAY ==
[2019-02-23 12:55] LABS: HGB 13.7 g/dL (12.0-15.5); Mean Corp. HGB Concentration 33.4 g/dL (32.0-36.0); Mean Corpuscular Hemoglobin 30.1 pg (27.0-33.0); Mean Corpuscular Volume 90.1 fL (80-95); Mean Platelet Volume 10.3 fL (8.0-11.0); Platelet Count 381 x1000/uL (130-400); RBC 4.55 m/cumm (4.00-5.20); White Blood Cell Count 12.88 k/cumm (4.4-10.8)
[2019-02-23 13:33] LABS: ALT 23 U/L (14-59); AST 13 U/L (15-37); Albumin 3.6 g/dL (3.4-5.0); Alkaline Phosphatase 71 U/L (46-116); Anion Gap 12.3 mmol/L (3-11); BUN 24 mg/dL (7-18); Bilirubin, Total 0.3 mg/dL (0.2-1.0); CO2 26.7 mmol/L (21.0-32.0); CREATININE 0.93 mg/dL (0.55-1.02); Calcium 8.9 mg/dL (8.5-10.1); Chloride 101 mmol/L (98-107); FREE T4 1.28 ng/dL (0.76-1.46); Glucose 137 mg/dL (70-100); Potassium 4.1 mmol/L (3.5-5.1); Sodium 140 mmol/L (136-145); TSH 2.85 uIU/mL (0.36-3.74); Total Protein 7.1 g/dL (6.4-8.2)
[2019-02-23 13:40] LABS: Hemoglobin A1C 6.6 % (4.5-6.2)
== END 2019-02-23 11:49 ==
PROVIDERS: PCP Nurse Practitioner Family; Visit Provider Nurse Practitioner Family
DX: E03.9 Hypothyroidism, unspecified (principal); E11.9 Type 2 diabetes mellitus without complications
CPT/HCPCS: 36415; 80053; 85027; 83036; 84439; 84443

== ENCOUNTER 2019-03-26 09:58 | Outpatient (CLI) | payer OTHER, SELFPAY ==
--- NOTE | 2019-03-26 09:50 | DI.RAD_ITS ---
EXAM: XR KNEE LT 3V AP,LAT,NICOLE INDICATION: knee pain. COMPARISON: RIGHT KNEE 3 VIEWS from 10/27/2017 TECHNIQUE: 2D digital imaging was performed. FINDINGS: There is moderate narrowing of the medial femoral tibial joint space and mild periarticular spurring and sclerosis. The medial femoral tibial joint space is well maintained. There is mild spurring at the articular aspect of the patella. No joint effusion is visible. IMPRESSION: Moderate degenerative changes of the lateral femoral tibial joint.
== END 2019-03-26 10:18 ==
PROVIDERS: PCP Nurse Practitioner Family; Visit Provider Physician Assistant
DX: M25.562 Pain in left knee (principal); M17.12 Unilateral primary osteoarthritis, left knee
CPT/HCPCS: 73562

== ENCOUNTER 2020-03-07 12:31 | Outpatient (REF) | payer BC, SELFPAY ==
[2020-03-07 19:41] LABS: ALT 33 U/L (14-59); AST 13 U/L (15-37); Albumin 3.4 g/dL (3.4-5.0); Alkaline Phosphatase 76 U/L (46-116); Anion Gap 7.6 mmol/L (3-11); BUN 18 mg/dL (7-18); Bilirubin, Total 0.3 mg/dL (0.2-1.0); CO2 30.4 mmol/L (21.0-32.0); CREATININE 1.01 mg/dL (0.55-1.02); Calculated LDL 87 mg/dL (<100); Chloride 99 mmol/L (98-107); Cholesterol 173 mg/dL (<200); Glucose 229 mg/dL (74-106); HDL Cholesterol 33 mg/dL (40-60); Magnesium 1.4 mg/dL (1.8-2.4); Potassium 3.7 mmol/L (3.5-5.1); Sodium 137 mmol/L (136-145); TSH 3.09 uIU/mL (0.36-3.74); Total Protein 6.8 g/dL (6.4-8.2); Triglyceride 267 mg/dL (<150)
[2020-03-07 20:35] LABS: Hemoglobin A1C 8.9 % (<5.7)
[2020-03-07 23:07] LABS: FREE T4 1.24 ng/dL (0.76-1.46)
== END 2020-03-07 12:51 ==
LOC: NCHCN 12:31
PROVIDERS: PCP Nurse Practitioner Family; Visit Provider Nurse Practitioner Family
DX: E11.9 Type 2 diabetes mellitus without complications (principal); E83.42 Hypomagnesemia
CPT/HCPCS: 80053; 80061; 83036; 83735; 84439; 84443

== ENCOUNTER 2020-04-08 18:35 | Outpatient (REF) | payer BC, SELFPAY | END 2020-04-08 18:55 | LOC: LBN 18:35 | PROVIDERS: PCP Nurse Practitioner Family; Visit Provider Physician Assistant | DX: J02.9 Acute pharyngitis, unspecified (principal) | CPT/HCPCS: 87070 ==

== ENCOUNTER 2020-04-09 03:08 | Outpatient (CLI) | payer BC, SELFPAY ==
[2020-04-11 13:21] LABS: COVID-19 RT-PCR Result NEGATIVE (Negative)
== END 2020-04-09 03:28 ==
PROVIDERS: PCP Nurse Practitioner Family; Visit Provider Physician Assistant
DX: Z11.59 Encounter for screening for other viral diseases (principal)
CPT/HCPCS: U0003

== ENCOUNTER 2020-05-01 08:52 | Outpatient (CLI) | payer BC, SELFPAY ==
[2020-05-02 18:53] LABS: COVID-19 RT-PCR UVMMC Result Negative (Negative)
== END 2020-05-01 09:12 ==
PROVIDERS: Nurse Practitioner Family; PCP Nurse Practitioner Family; Visit Provider Family Medicine
DX: Z11.59 Encounter for screening for other viral diseases (principal)
CPT/HCPCS: U0003

== ENCOUNTER 2020-07-02 12:00 | Outpatient (CLI) | payer BC, SELFPAY ==
[2020-07-02 12:33] LABS: Abs Immature Grans 0.05 10^3/uL (0.0-0.06); Absolute Basophil Count 0.11 10^3/uL (0.0-0.2); Absolute Eosinophil Count 0.41 10^3/uL (0.0-0.7); Absolute Lymphocyte Count 3.36 10^3/uL (1.2-3.4); Absolute Monocyte Count 0.86 10^3/uL (0.1-0.8); Absolute Neutrophil Count 7.53 10^3/uL (1.2-6.7); Basophils % 0.9; Eosinophils % 3.3; HCT 37.6 % (36.0-46.0); HGB 12.5 g/dL (11.2-15.7); Immature Grans % 0.4; Lymphocytes % 27.3; MCHC 33.2 % (32.0-36.0); MCV 90.4 fL (80-95); Neutrophils % 61.1; Nucleated RBC 0 %; Platelet Count 397 10^3/uL (130-400); RBC 4.16 10^6/uL (3.93-5.22); RDW 13.7 % (11.7-14.6); RDW-SD 44.8 fL; WBC 12.32 10^3/uL (4.4-10.8)
[2020-07-02 12:49] LABS: Hemoglobin A1C 8.3 % (<5.7)
[2020-07-02 13:06] LABS: Magnesium 1.7 mg/dL (1.8-2.4)
[2020-07-02 13:07] LABS: Anion Gap 7.1 mmol/L (3-11); BUN 44 mg/dL (7-18); C-Reactive Protein 1.42 mg/dL (0.0-0.3); CO2 26.9 mmol/L (21.0-32.0); CREATININE 1.5 mg/dL (0.55-1.02); Calcium 9.3 mg/dL (8.5-10.1); Chloride 101 mmol/L (98-107); Estimated GFR 36.91 (mL/min/1.73m2); Glucose 215 mg/dL (74-106); Potassium 5.3 mmol/L (3.5-5.1); Sodium 135 mmol/L (136-145)
[2020-07-02 15:56] LABS: ESR 50 mm/hr (<or=20)
[2020-07-02 16:50] LABS: Rheumatoid Factor <8.6 IU/mL (<12.0)
== END 2020-07-02 12:01 | disposition home or self-care (01) ==
LOC: LOS 12:00
PROVIDERS: PCP Nurse Practitioner Family; Visit Provider Emergency Medicine
DX: I10 Essential (primary) hypertension (principal); E11.9 Type 2 diabetes mellitus without complications; M25.562 Pain in left knee; M25.561 Pain in right knee; M25.551 Pain in right hip; M25.552 Pain in left hip; G89.29 Other chronic pain
CPT/HCPCS: 36415; 80048; 85652; 83036; 83735; 85025; 86140; 86431

== ENCOUNTER 2020-07-06 15:28 | Emergency (ER) | payer BC, SELFPAY ==
[2020-07-06] VITALS (27 sets, daily range): BP systolic 103–138; BP diastolic 64–94; PULSE 83–95; RESP 15–22; TEMP 36.8; O2SAT 96–100
--- NOTE | 2020-07-06 16:00 | DI.RAD_ITS ---
EXAM: XR PORTABLE CHEST AP CLINICAL HISTORY: chest pain TECHNIQUE: 2D digital imaging was performed. COMPARISON: No exams were available for comparison FINDINGS: MEDIASTINUM: Normal. HEART: Normal. PULMONARY VASCULATURE: Normal. LUNGS: Clear. PLEURAL SPACE: No pleural effusion or pneumothorax. BONE:Within normal limits for the patient's age. OTHER FINDINGS:Normal. IMPRESSION: No acute pulmonary findings. DATA REPOSITORY: RADIATION DOSE DELIVERED:
--- NOTE | 2020-07-06 16:00 | RT.EKG_ITS ---
APPROVED REPORT Exam: Resting ECG Patient Location: E HR:89 bpm ECG Measurements Heart Rate 89 AXIS CA 168 P 36 QRSd 100 QRS 22 QT 370 T 7 QTc 451 Conclusion Sinus rhythm...normal P axis, V-rate 60- 99 Low voltage, precordial leads...precordial leads <1.0mV
[2020-07-06] MEDS: Acetaminophen 325 MG TAB 650 MG PO (16:23)
[2020-07-06 16:27] LABS: Abs Immature Grans 0.03 10^3/uL (0.0-0.06); Absolute Eosinophil Count 0.48 10^3/uL (0.0-0.7); Absolute Monocyte Count 0.59 10^3/uL (0.1-0.8); Absolute Neutrophil Count 6.37 10^3/uL (1.2-6.7); Basophils % 0.9; Eosinophils % 4.5; HCT 35.6 % (36.0-46.0); HGB 11.7 g/dL (11.2-15.7); Immature Grans % 0.3; Lymphocytes % 28.4; MCH 29.9 pg (27.0-33.0); MCHC 32.9 % (32.0-36.0); MPV 9.5 fL (8.0-11.0); Monocytes % 5.6; Neutrophils % 60.3; Nucleated RBC 0 %; Platelet Count 361 10^3/uL (130-400); RBC 3.91 10^6/uL (3.93-5.22); RDW 13.6 % (11.7-14.6); RDW-SD 45.4 fL; WBC 10.57 10^3/uL (4.4-10.8)
[2020-07-06 16:42] LABS: ALT 27 U/L (14-59); AST 12 U/L (15-37); Albumin 3.5 g/dL (3.4-5.0); Alkaline Phosphatase 71 U/L (46-116); Anion Gap 7.2 mmol/L (3-11); BUN 39 mg/dL (7-18); Bilirubin, Total 0.3 mg/dL (0.2-1.0); CO2 26.8 mmol/L (21.0-32.0); CREATININE 1.5 mg/dL (0.55-1.02); Calcium 9.2 mg/dL (8.5-10.1); Chloride 102 mmol/L (98-107); Estimated GFR 36.91 (mL/min/1.73m2); Glucose 168 mg/dL (74-106); Sodium 136 mmol/L (136-145); Total Protein 7.6 g/dL (6.4-8.2); Troponin I < 0.05 ng/mL (<0.06)
[2020-07-06 16:55] LABS: D-Dimer 766 ng/mlFEU (<500)
--- NOTE | 2020-07-06 17:07 | DI.VRAD_ITS ---
PROCEDURE INFORMATION: Exam: XR Chest Exam date and time: 07/06/2020 4:05 PM Age: 50 years old Clinical indication: Other: Chest pain TECHNIQUE: Imaging protocol: XR of the chest Views: 1 view. COMPARISON: No relevant prior studies available. FINDINGS: Lungs: Unremarkable. No consolidation. Pleural spaces: Unremarkable. No pleural effusion. No pneumothorax. Heart/Mediastinum: Unremarkable. No cardiomegaly. Bones/joints: Unremarkable. IMPRESSION: No acute findings. Dictated and Authenticated by: Berhane Chacon MD. Ordering:STANTON Hinds MD
--- NOTE | 2020-07-06 17:30 | DI.US_ITS ---
EXAM: US LOWER EXTREMITY VENOUS RT CLINICAL HISTORY: PAIN TECHNIQUE: Right lower extremity venous ultrasound performed using grayscale, color-flow, and spectr al Doppler analysis. COMPARISON: No exams were available for comparison FINDINGS: The right common femoral, femoral and popliteal veins demonstrate normal compressibility, augmentatio n, and color Doppler. The posterior tibial veins are patent. The saphenofemoral junction is unremark able. There is no evidence of a Regan cyst. The soft tissues are unremarkable. IMPRESSION: No DVT. DATA REPOSITORY:
--- NOTE | 2020-07-06 17:35 | ED.GENADUL_ITS ---
Discharge Plan Disposition Patient Disposition: HOME Condition: Good Discharge Details Clinical Impression: Acute pain of right knee, Chronic arthralgias of knees and hips Primary Care Provider: Malka Reis ED Provider: Sukhdeep Kidd Home Meds and New Rx's Prescriptions: Continued Flovent HFA 110 mcg/actuation HFA aerosol inhaler 110 mcg Inhalation BID Qty: 12 RF: 4 cyclobenzaprine 5 mg tablet 5 mg PO TID PRN (Reason: muscle spasm) Qty: 60 RF: 0 omeprazole 20 mg capsule,delayed release(DR/EC) 20 mg PO DAILY Qty: 90 RF: 4 fluticasone propionate [Allergy Relief (fluticasone)] 50 mcg/actuation spray,suspension 2 spray MIKEL DAILY PRN (Reason: allergy symptoms) Qty: 15.8 RF: 4 cetirizine [Zyrtec] 10 mg tablet 10 mg PO DAILY PRN (Reason: allergy symptoms) Qty: 90 RF: 4 (DME) OneTouch Ultra Blue Test Strip Strip See Rx Instructions .ROUTE .MEDSUPPLY Qty: 200 RF: 4 (DME) lancets [OneTouch UltraSoft Lancets] Misc See Rx Instructions .ROUTE .MEDSUPPLY Qty: 200 RF: 4 ibuprofen [Advil] 200 mg tablet 200 mg PO QID PRNRF: 0 (DME) pen needle, diabetic 31 gauge x 1/3 needle 1 ea Miscellaneous DAILY Qty: 100 RF: 4 spironolactone 50 mg tablet 50 mg PO BID Qty: 180 RF: 4 (DME) 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 meter [[employer]uch Ultra2 Meter] 1 EACH kit 1 ea Miscellaneous DAILY Qty: 1 RF: 0 simvastatin 10 mg tablet 10 mg PO DAILY Qty: 90 RF: 4 hydrochlorothiazide 25 mg tablet 25 mg PO DAILY Qty: 90 RF: 4 levothyroxine 112 mcg capsule 112 mcg PO DAILY Qty: 90 RF: 4 metformin 1,000 mg tablet 1,000 mg PO BID Qty: 180 RF: 4 ipratropium-albuterol 0.5 mg-3 mg(2.5 mg base)/3 mL solution for nebulization 3 ml Inhalation QID PRN (Reason: shortness of breath or wheezing) Qty: 90 RF: 4 albuterol sulfate [Proventil HFA] 90 mcg/actuation HFA aerosol inhaler 2 puff Inhalation Q6H PRN (Reason: shortness of breath or wheezing) Qty: 54 RF: 4 diclofenac sodium 1 % gel 4 gm TP QID PRN (Reason: knee pain) Qty: 100 RF: 4 lisinopril 20 mg tablet 20 mg PO DAILY Qty: 90 RF: 4 diclofenac sodium 50 mg tablet,delayed release (DR/EC) 50 mg PO BID PRN (Reason: pain) Qty: 90 RF: 1 magnesium oxide 500 mg capsule 500 mg PO BID RF: 0 Tresiba FlexTouch U-100 100 unit/mL (3 mL) insulin pen 32 unit subcut QHS RF: 0 No Action glipizide 10 mg tablet 10 mg PO BID Qty: 180 RF: 4 Discharge Instructions Instructions: Knee Pain (ED) Additional Instructions: At this time the CT scan of the chest and the x-ray of your knee and the ultrasound of your leg showed no evidence of fracture or concerning new process. We suspect that you do have notable arthritis and irritation to your knees, and this may have certainly been worsened as you described after the generalized j oint irritation after your Covid vaccine. Please use the walker to help in your ambulation. Please follow-up closely with your training and development specialist Dr. Win. As an alternative to diclofenac you can take Tylenol and Aleve. Please use plenty of ice to help with swelling and inflammation. Please wrap your knee in Leonard wrap to help with joint stability. If you notice any worsening of your symptoms, or any new symptoms such as vomiting, diarrhea, fever, chills, shortness of breath, chest pain, numbness, weakness, or fainting , please return immediately to the emergency department for reevaluation. Please follow up with your primary care provider as soon as possible for reassessment and reevaluation. As always, it was a pleasure participating in your medical care today. Stand Alone Forms: Work Release Referrals: Malka Reis NP [Primary Care Provider] - Kelton Win MD [ [facility] STAFF PHYSICIAN] - Discharge Data Discharge Date/Time-TO BE ENTERED AT DEPARTURE: 07/06/20 21:10 Medical Decision Making <Guzman Hale MD - Last Filed: 07/11/20 22:28> [birth year]??50-year-old female here with posterior right knee and proximal lower leg pain. Pulses intact and strong distally. Consider DVT. Plan to ultrasound of extremity. Regarding chest pain earlier, consider ACS versus PE versus musculoskeletal. Chest x-ray was reviewed and interpreted by radiology: No acute findings. Screening ECG was reviewed and interpreted by me: Sinus rhythm 89 bpm, low voltage, no STEMI, please see report. Labs reviewed and D-dimer is elevated. Troponin normal. Plan to proceed to CT of the chest. Lab Data Lab results reviewed: Yes I reviewed the patient's lab results. Labs: Laboratory Tests Range/Units 07/06/20 07/06/20 07/06/20 16:20 16:20 16:20 WBC (4.4-10.8) 10^3/uL 10.57 RBC (3.93-5.22) 10^6/uL 3.91 L Hgb (11.2-15.7) g/dL 11.7 Hct (36.0-46.0) % 35.6 L MCV (80-95) fL 91.0 MCH (27.0-33.0) pg 29.9 MCHC (32.0-36.0) % 32.9 RDW (11.7-14.6) % 13.6 Plt Count (130-400) 10^3/uL 361 MPV (8.0-11.0) fL 9.5 Immature Gran % 0.3 Neutrophils % 60.3 Lymphocytes % 28.4 Monocytes % 5.6 Eosinophils % 4.5 Basophils % 0.9 Nucleated RBC % % 0 Absolute Neutrophils (1.2-6.7) 10^3/uL 6.37 Absolute Lymphocytes (1.2-3.4) 10^3/uL 3.00 Absolute Monocytes (0.1-0.8) 10^3/uL 0.59 Absolute Eosinophils (0.0-0.7) 10^3/uL 0.48 Absolute Basophils (0.0-0.2) 10^3/uL 0.10 D-Dimer (<500) ng/mlFEU 766 H Sodium (136-145) mmol/L 136 Potassium (3.5-5.1) mmol/L 5.0 Chloride (98-107) mmol/L 102 Carbon Dioxide (21.0-32.0) mmol/L 26.8 Anion Gap (3-11) mmol/L 7.2 BUN (7-18) mg/dL 39 H Creatinine (0.55-1.02) mg/dL 1.5 H Estimated GFR/1.73 m2 (mL/min/1.73m2) 36.91 Glucose (74-106) mg/dL 168 H Calcium (8.5-10.1) mg/dL 9.2 Total Bilirubin (0.2-1.0) mg/dL 0.3 AST (15-37) U/L 12 L ALT (14-59) U/L 27 Alkaline Phosphatase (46-116) U/L 71 Troponin I (<0.06) ng/mL < 0.05 Total Protein (6.4-8.2) g/dL 7.6 Albumin (3.4-5.0) g/dL 3.5 <Sukhdeep Kidd DO - Last Filed: 07/06/20 21:01> Case was signed out to me by my colleague Dr. Guzman Hale. Please review his HPI, physical exam, assessment and plan. At time of signout we are pending reassessment after CT scan and x-ray results and return. Repeat troponin was u nremarkable. 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 Personal reassessment of patient demonstrates unremarkable knees, mild reproducible tenderness over the medial and posterior aspect. Ultrasound was negative for any evidence of clot. No evidence of warmth or redness to suggest infected joint. Symptoms at this time appear consistent with chronic arthritis, and potential mild synovitis that occurred after Covid vaccine. Recommend continue Tylenol Motrin and ice versus Aleve and Tylenol and ice. Patient states she no longer takes diclofenac. Recommend close follow-up with Dr. Win for further discussion of potential surgical options in the future. Will give walker for home use. At this time there appears to be no evidence of an acute life-threatening etiology. I have extensively reviewed the treatment plan and discharge instructions with the patient. I have addressed all patient concerns at this time. The patient was made aware of what symptoms to monitor for that would warrant a return to the emergency department. Discussed the plan with the patient, they demonstrate verbal understanding and agreement with our assessment and plan at this time. The documentation in this chart was dictated using Dragon dictation software. Please excuse any dictation errors. FINDINGS: Pulmonary arteries: Normal. No pulmonary emboli. Aorta: Unremarkable. No aortic aneurysm. No aortic dissection. Lungs: Unremarkable. No consolidation. No masses. Pleural spaces: Unremarkable. No pneumothorax. No pleural effusion. Heart: Unremarkable. No cardiomegaly. No pericardial effusion. Lymph nodes: Unremarkable. No enlarged lymph nodes. Liver: The liver is diffusely decreased in density. Gallbladder and bile ducts: Calcification of the gallbladder wall is again noted. Bones/joints: Unremarkable. No acute fracture. Soft tissues: Unremarkable. IMPRESSION: 1. No evidence of pulmonary embolism. 2. Fatty liver disease. 3. Calcified gallbladder wall consistent with porcelain gallbladder is again noted. Thank you for allowing us to participate in the care of your patient. Dictated and Authenticated by: Berhane Chacon MD 07/06/2020 7:55 PM Eastern Time ([place] & [place]) FINDINGS: Bones/joints: No acute fracture. There is enthesophyte formation at the quadriceps insertion on the patella. Soft tissues: No evidence of a significant joint effusion. IMPRESSION: No acute findings. Thank you for allowing us to participate in the care of your patient. Dictated and Authenticated by: Berhane Chacon MD 07/06/2020 8:33 PM Eastern Time ([place] & [place]) HPI <Guzman aHle MD - Last Filed: 07/11/20 22:28> General Mode of arrival: ambulatory . Date/Time Provider Initiated Documentation: 07/06/20 15:44 . Limitations to Documentation: no limitations . Information obtained by: patient . HPI Narrative: 50-year-old female with history of diabetes, hypertension, obesity, bilateral knee arthritis, here with chief complaint of right leg pain. Patient notes pain in posterior right leg behind her knee for the past couple weeks, pain now worse and moderate to severe. Worse with attempted ambulation. No associated swelling. No recent trauma. Patient also notes that late this morning she was lying in bed and developed some chest tightness. Episode was brief. No associated shortness of breath. Related Data Home Medications Medication Instructions Recorded Confirmed 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 meter [OneTouch #1 kit 10/17/17 07/11/20 Ultra2 Meter] fluticasone propionate 110 110 mcg INHALATION BID #12 gm 12/20/18 03/05/21 mcg/actuation HFA aerosol inhaler ibuprofen 200 mg tablet 200 mg PO QID PRN 10/12/18 07/11/20 simvastatin 10 mg tablet 10 mg PO DAILY #90 tab-cap 05/23/19 07/11/20 hydrochlorothiazide 25 mg tablet 25 mg PO DAILY #90 tab 08/20/19 07/11/20 levothyroxine 112 mcg capsule 112 mcg PO DAILY #90 cap 08/20/19 07/11/20 metformin 1,000 mg tablet 1,000 mg PO BID #180 tab-cap 08/20/19 07/11/20 ipratropium 0.5 mg-albuterol 3 mg 3 ml INHALATION QID PRN #90 ml 09/11/19 07/11/20 (2.5 mg base)/3 mL nebulization soln albuterol sulfate 90 mcg/actuation 2 puff INHALATION Q6H PRN #54 gm 11/05/19 07/11/20 aerosol inhaler diclofenac sodium 1 % topical gel 4 gm TP QID PRN #100 gm 11/05/19 07/11/20 blood sugar diagnostic #200 each 03/10/20 07/11/20 lancets #200 each 03/10/20 07/11/20 pen needle, diabetic 31 gauge x #100 ndl 04/11/20 07/11/2005/11 spironolactone 50 mg tablet 50 mg PO BID #180 tab 04/14/20 07/11/20 lisinopril 20 mg tablet 20 mg PO DAILY #90 tab 04/23/20 07/11/20 diclofenac sodium 50 mg 50 mg PO BID PRN #90 tab 05/28/20 07/11/20 tablet,delayed release cetirizine 10 mg tablet 10 mg PO DAILY PRN #90 tab 06/16/20 07/11/20 cyclobenzaprine 5 mg tablet 5 mg PO TID PRN #60 tab 06/16/20 07/11/20 fluticasone propionate 50 2 spray MIKEL DAILY PRN #15.8 gm 06/16/20 07/11/20 mcg/actuation nasal spray,suspension omeprazole 20 mg capsule,delayed 20 mg PO DAILY #90 cap 06/16/20 07/11/20 release Tresiba FlexTouch U-100 32 unit SUBCUT QHS 07/06/20 07/11/20 magnesium oxide 500 mg PO BID 07/06/20 07/11/20 glipizide 10 mg tablet 10 mg PO BID #180 tab 07/11/20 07/11/20 Previous Rx's Medication Instructions Recorded 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 meter [OneTouch #1 kit 10/17/17 Ultra2 Meter] fluticasone propionate 110 110 mcg INHALATION BID #12 gm 04/27/18 mcg/actuation HFA aerosol inhaler simvastatin 10 mg tablet 10 mg PO DAILY #90 tab-cap 05/23/19 hydrochlorothiazide 25 mg tablet 25 mg PO DAILY #90 tab 08/20/19 levothyroxine 112 mcg capsule 112 mcg PO DAILY #90 cap 08/20/19 metformin 1,000 mg tablet 1,000 mg PO BID #180 tab-cap 08/20/19 ipratropium 0.5 mg-albuterol 3 mg 3 ml INHALATION QID PRN #90 ml 09/11/19 (2.5 mg base)/3 mL nebulization soln albuterol sulfate 90 mcg/actuation 2 puff INHALATION Q6H PRN #54 gm 11/05/19 aerosol inhaler diclofenac sodium 1 % topical gel 4 gm TP QID PRN #100 gm 11/05/19 blood sugar diagnostic #200 each 03/10/20 lancets #200 each 03/10/20 pen needle, diabetic 31 gauge x #100 ndl 04/11/20 1/ spironolactone 50 mg tablet 50 mg PO BID #180 tab 04/14/20 lisinopril 20 mg tablet 20 mg PO DAILY #90 tab 04/23/20 diclofenac sodium 50 mg 50 mg PO BID PRN #90 tab 05/28/20 tablet,delayed release cetirizine 10 mg tablet 10 mg PO DAILY PRN #90 tab 06/16/20 cyclobenzaprine 5 mg tablet 5 mg PO TID PRN #60 tab 06/16/20 fluticasone propionate 50 2 spray MIKEL DAILY PRN #15.8 gm 06/16/20 mcg/actuation nasal spray,suspension omeprazole 20 mg capsule,delayed 20 mg PO DAILY #90 cap 06/16/20 release glipizide 10 mg tablet 10 mg PO BID #180 tab 07/11/20 Allergies Allergy/AdvReac Type Severity Reaction Status Date / Time cigarette smoke Allergy Verified 07/11/20 14:37 mold Allergy Verified 07/11/20 14:37 General Stated Complaint: Orthopedic SAMMY: 4 Review of Systems <Guzman Hale MD - Last Filed: 07/11/20 22:28> All systems reviewed & are unremarkable except as noted in HPI and below Constitutional Constitutional: Denies fever(s) Cardiovascular Cardiovascular: Reports as per HPI Musculoskeletal Musculoskeletal: Reports as per HPI PFSH <Guzman Hale MD - Last Filed: 07/11/20 22:28> Medical History Chronic arthralgias of knees and hips Essential hypertension GERD (gastroesophageal reflux disease) Heavy menstrual bleeding Hyperlipidemia Hypomagnesemia Hypothyroidism IUD surveillance (09/01/17) Inserted 09/01/17 at [facility] [employer] Mild persistent asthma Morbidly obese FLIP (obstructive sleep apnea) Patellofemoral arthritis of right knee Type 2 diabetes mellitus Surgical History History of repair of left hip joint Family History Mother Essential hypertension Heart disease Hyperlipidemia Alcohol abuse Father , at 94 of [place] Essential hypertension Diabetes Heart disease Stroke Hyperlipidemia Alcohol abuse Sister Depression Substance abuse Sister No problems noted. Brother No problems noted. Brother No problems noted. Son Asthma Daughter Asthma Depression Daughter Asthma Depression Maternal Grandfather , at 81 Alcohol abuse Diabetes Asthma Stroke Essential hypertension Hyperlipidemia Heart disease Maternal Grandmother , at 83 of brain aneurysm Essential hypertension Heart disease Paternal Grandfather No problems noted. Paternal Grandmother No problems noted. 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 Current gender identity: female What type of physical activity do you participate in: walking Frequency: daily Seatbelt use: always Do you feel safe at home: Yes Do you feel safe in your relationship?: Yes Exam <Guzman Hale MD - Last Filed: 07/11/20 22:28> Const General: cooperative and no acute distress HENMT Mouth: moist mucous membranes Eyes Conjunctivae: normal conjunctivae Sclera: normal sclerae Neck Neck: trachea midline and supple Resp Auscultation: clear to auscultation bilaterally, no rales, no rhonchi and no wheezes Cardio Jugular venous pressure: no JVD Rate: regular rate and not tachycardic Rhythm: regular rhythm GI Palpation: soft, not firm, no guarding, no masses, not rigid and nontender Skin General skin exam: no rashes or lesions noted Neuro General: patient alert, patient awake, patient oriented x3 and tone normal Extrem General: no edema Right lower extremity: knee Details: tenderness Location: of the popliteal fossa; no swelling and no unusual warmth and lower leg Details: tenderness (Proximal posterior lower leg) Psych Appearance: grossly normal Mental Status: mental status grossly normal Course <Guzman Hale MD - Last Filed: 07/11/20 22:28> Vital Signs Vital signs: Vital Signs Temperature 36.8 C 07/06/20 15:36 Pulse 93 H 07/06/20 15:36 Respiratory Rate 22 07/06/20 15:36 Blood Pressure 138/94 H 07/06/20 15:36 Pulse Oximetry 100 07/06/20 15:36 Temperature 36.8 C 07/06/20 15:36 Temperature Source Skin 07/06/20 15:36 Pulse 87 07/06/20 16:31 Respiratory Rate 22 07/06/20 15:36 Respiratory Effort Non-Labored 07/06/20 15:45 Blood Pressure 123/66 07/06/20 16:31 Blood Pressure Mean 80 07/06/20 16:31 Blood Pressure Position Sitting 07/06/20 15:36 Pulse Oximetry 98 07/06/20 17:00 Oxygen Delivery Method Room Air 07/06/20 15:36 Oxygen Flow Rate 0 07/06/20 15:36 Pain Level 5 07/06/20 15:36 Lab/Test Results Lab/Test Results: Laboratory Tests Range/Units 07/06/20 07/06/20 07/06/20 16:20 16:20 16:20 WBC (4.4-10.8) 10^3/uL 10.57 RBC (3.93-5.22) 10^6/uL 3.91 L Hgb (11.2-15.7) g/dL 11.7 Hct (36.0-46.0) % 35.6 L MCV (80-95) fL 91.0 MCH (27.0-33.0) pg 29.9 MCHC (32.0-36.0) % 32.9 RDW (11.7-14.6) % 13.6 Plt Count (130-400) 10^3/uL 361 MPV (8.0-11.0) fL 9.5 Immature Gran % 0.3 Neutrophils % 60.3 Lymphocytes % 28.4 Monocytes % 5.6 Eosinophils % 4.5 Basophils % 0.9 Nucleated RBC % % 0 Absolute Neutrophils (1.2-6.7) 10^3/uL 6.37 Absolute Lymphocytes (1.2-3.4) 10^3/uL 3.00 Absolute Monocytes (0.1-0.8) 10^3/uL 0.59 Absolute Eosinophils (0.0-0.7) 10^3/uL 0.48 Absolute Basophils (0.0-0.2) 10^3/uL 0.10 D-Dimer (<500) ng/mlFEU 766 H Sodium (136-145) mmol/L 136 Potassium (3.5-5.1) mmol/L 5.0 Chloride (98-107) mmol/L 102 Carbon Dioxide (21.0-32.0) mmol/L 26.8 Anion Gap (3-11) mmol/L 7.2 BUN (7-18) mg/dL 39 H Creatinine (0.55-1.02) mg/dL 1.5 H Estimated GFR/1.73 m2 (mL/min/1.73m2) 36.91 Glucose (74-106) mg/dL 168 H Calcium (8.5-10.1) mg/dL 9.2 Total Bilirubin (0.2-1.0) mg/dL 0.3 AST (15-37) U/L 12 L ALT (14-59) U/L 27 Alkaline Phosphatase (46-116) U/L 71 Troponin I (<0.06) ng/mL < 0.05 Total Protein (6.4-8.2) g/dL 7.6 Albumin (3.4-5.0) g/dL 3.5 Sign Out <Guzman Hale MD - Last Filed: 07/11/20 22:28> Sign Out Data: Sign Out Comment: Care to be signed out to Dr. Kidd with plan to follow-up on results of CT chest, x-ray of right knee, delta troponin. Plan to reassess patient for disposition. I suspect if testing is nondiagnostic and reassessment reassuring she may be safely discharged home with plan for outpatient follow-up. Last updated by Guzman Hale MD at 07/06/20 19:50
--- NOTE | 2020-07-06 18:19 | DI.VRAD_ITS ---
PROCEDURE INFORMATION: Exam: US Duplex Right Lower Extremity Veins, Limited Exam date and time: 07/06/2020 6:08 PM Age: 50 years old Clinical indication: Other: Right calf pain TECHNIQUE: Imaging protocol: Real-time Duplex ultrasound of the Right Lower Extremity with 2-D lovelace scale, color Doppler flow and spectral waveform analysis with image documentation. Limited exam was focused on the right lower extremity veins. COMPARISON: No relevant prior studies available. FINDINGS: Right deep veins: Unremarkable. The common femoral, femoral, proximal profunda femoral and popliteal veins are patent without thrombus. Normal Doppler waveforms. Normal compressibility and/or augmentation response. Right superficial veins: Unremarkable. Saphenofemoral junction is patent without thrombus. Soft tissues: Unremarkable. IMPRESSION: No evidence of deep vein thrombosis. Dictated and Authenticated by: Berhane Chacon MD. Ordering:STANTON Hinds MD
--- NOTE | 2020-07-06 18:30 | DI.RAD_ITS ---
EXAM: XR KNEE RT 3V AP,LAT,NCIOLE CLINICAL HISTORY: pain. TECHNIQUE: 2D digital imaging was performed. COMPARISON: CR XR KNEE LT 3V AP,LAT,NICOLE from 03/26/2019 FINDINGS: BONES: No acute fracture is present. No bony destructive lesion is seen. There is an enthesophyte at the superior patella. JOINTS: The knee is normally aligned. No joint effusion is seen. Mild degenerative changes are presen t. SOFT TISSUE: Normal. IMPRESSION: No acute abnormality. DATA REPOSITORY: RADIATION DOSE DELIVERED:
--- NOTE | 2020-07-06 18:30 | DI.CT_ITS ---
EXAM: CT CHEST PE CTA CLINICAL HISTORY: chest pain, elevated ddimer. TECHNIQUE: Imaging Protocol: Axial CT angiography was performed with multi-slice acquisition and mu lti-planar and/or 3D reconstructions. CONTRAST MATERIAL: Intravenous: Omnipaque 350 Contrast volume:100 mL COMPARISON: CT CT ABDOMEN PELVIS W from 10/21/2018 FINDINGS: The examination is limited due to patient motion artifact. Tracheobronchial tree: Patent where visualized. Pulmonary parenchyma: No consolidation or dominant measurable mass. No architectural distortion. Pulmonary Arteries: No evidence of filling defect to suggest pulmonary emboli. Mediastinum and Marla: No dominant adenopathy or fluid collection. Visualized thyroid gland: Unremarkable. Pleura: No effusion or pneumothorax. Heart: The heart is not dilated. No coronary artery calcifications are seen. No pericardial effusion. No evidence of right heart strain. Aorta: Thoracic aorta non-dilated. No evidence of dissection. Upper abdomen: Calcification of the wall of the gallbladder is noted. This was present on the prior CT scan of the abdomen and pelvis from 10/21/2018. There is decreased attenuation of the liver sugges ting fatty infiltration. Soft tissues: Unremarkable. Bones: Within normal limits for the patient's age. IMPRESSION: 1. No evidence of pulmonary embolism, thoracic aortic dissection or aneurysm. 2. Stable gallbladder wall calcification consistent with ???porcelain gallbladder???. RADIATION DOSE DELIVERED: 681.28mGy.cm Total DLP DATA REPOSITORY: All CT scans at this facility are submitted to the National Radiology Data Registry (NRDR) Dose Index Registry (DIR) with the [employer] (A[employer]). RADIATION OPTIMIZATION: All CT scans at this facility use at least one of these dose optimization te chniques: automated exposure control; mA and/or kV adjustment per patient size (includes targeted exa ms where dose is matched to clinical indication); or iterative reconstruction.
[2020-07-06] MEDS: Omnipaque 350 MG/ML 100 ML BTL IJ (19:41)
[2020-07-06] MEDS: Normal Saline - Diluent 50 ML VIAL IV (19:42)
[2020-07-06] MEDS: Normal Saline Flush 10 ML SYR IVP (19:42)
--- NOTE | 2020-07-06 19:56 | DI.VRAD_ITS ---
PROCEDURE INFORMATION: Exam: CT Angiography Chest With Contrast Exam date and time: 07/06/2020 7:34 PM Age: 50 years old Clinical indication: Patient HX: Chest pain and elevated d dimer TECHNIQUE: Imaging protocol: Computed tomographic angiography of the chest with contrast. 3D rendering (Not supervised by radiologist): MIP and/or 3D reconstructed images were created by the technologist. Contrast material: OMNIPAQUE 350; Contrast volume: 100 ml; Contrast route: INTRAVENOUS (IV); COMPARISON: 1. CT ABDOMEN PELVIS W 10/21/2018 4:36:51 PM 2. CR XR PORTABLE CHEST AP 07/06/2020 4:30 PM FINDINGS: Pulmonary arteries: Normal. No pulmonary emboli. Aorta: Unremarkable. No aortic aneurysm. No aortic dissection. Lungs: Unremarkable. No consolidation. No masses. Pleural spaces: Unremarkable. No pneumothorax. No pleural effusion. Heart: Unremarkable. No cardiomegaly. No pericardial effusion. Lymph nodes: Unremarkable. No enlarged lymph nodes. Liver: The liver is diffusely decreased in density. Gallbladder and bile ducts: Calcification of the gallbladder wall is again noted. Bones/joints: Unremarkable. No acute fracture. Soft tissues: Unremarkable. IMPRESSION: 1. No evidence of pulmonary embolism. 2. Fatty liver disease. 3. Calcified gallbladder wall consistent with porcelain gallbladder is again noted. Dictated and Authenticated by: Berhane Chacon MD. Ordering:STANTON Hinds MD
[2020-07-06] MEDS: Normal Saline 500 ML 1000 ML IV (20:08)
[2020-07-06 20:27] LABS: Troponin I < 0.05 ng/mL (<0.06)
--- NOTE | 2020-07-06 20:33 | DI.VRAD_ITS ---
PROCEDURE INFORMATION: Exam: XR Right Knee Exam date and time: 07/06/2020 7:54 PM Age: 50 years old Clinical indication: Right; Patient HX: R knee pain, lrom TECHNIQUE: Imaging protocol: XR Right knee. Views: 3 views. COMPARISON: CR RIGHT KNEE 3 VIEWS 10/27/2017 10:33 AM FINDINGS: Bones/joints: No acute fracture. There is enthesophyte formation at the quadriceps insertion on the patella. Soft tissues: No evidence of a significant joint effusion. IMPRESSION: No acute findings. Dictated and Authenticated by: Berhane Chacon MD. Ordering:STANTON Hinds MD
== END 2020-07-06 21:10 | disposition home or self-care (01) ==
PROVIDERS: Student in an Organized Health Care Education/Training Program; Emergency Provider Student in an Organized Health Care Education/Training Program; PCP Nurse Practitioner Family
DX: M25.561 Pain in right knee (principal); G89.29 Other chronic pain; R07.81 Pleurodynia; M17.0 Bilateral primary osteoarthritis of knee
CPT/HCPCS: 36415; 71275; 73562; 80053; 93005; 99285; 71045; 84484; 85025; 85379; 93010; 93971; 99284; J3490

== ENCOUNTER 2020-07-11 18:22 | Outpatient (REF) | payer BC, SELFPAY ==
[2020-07-11 20:05] LABS: C-Reactive Protein 1.21 mg/dL (0.0-0.3)
[2020-07-12 12:58] LABS: ESR 57 mm/hr (<or=20)
[2020-07-15 12:19] LABS: dsDNA Ab, IgG <12.3 IU/mL (<30.0)
[2020-07-15 15:16] LABS: ANA Interpretation Negative (Negative)
== END 2020-07-11 18:23 | disposition home or self-care (01) ==
LOC: LBN 18:22
PROVIDERS: PCP Nurse Practitioner Family; Visit Provider Nurse Practitioner Family
DX: M25.551 Pain in right hip (principal); M25.552 Pain in left hip; M25.561 Pain in right knee; M25.562 Pain in left knee; G89.29 Other chronic pain
CPT/HCPCS: 85652; 86038; 86140; 86225

== ENCOUNTER 2020-07-31 13:12 | Outpatient (CLI) | payer BC, SELFPAY ==
--- NOTE | 2020-07-31 09:30 | DI.RAD_ITS ---
EXAM: XR LUMBAR SPINE AP, LAT CLINICAL HISTORY: right leg weakness, ?radiculopathy. TECHNIQUE: 2D digital imaging was performed. COMPARISON: No exams were available for comparison FINDINGS: There is a transitional lumbosacral vertebra. There is no evidence of fracture or listhesis. No par s defects. There is mild disc space narrowing at L 2-3 and L3-4 levels and there is also anterior os seous lipping at these 2 levels evident. The other disc spaces above and below this level exhibit no rmal height. Some degenerative changes noted in the facet joints, most evident at L5-S1. No scolios is. Sacroiliac joints appear unremarkable. No osseous lesions. Bone density is normal. IMPRESSION: Some degenerative disc disease is noted at L2-3 and L3-4 levels. Also some facet arthropathy. There is a transitional lumbosacral vertebra noted. Incidentally noted is cirrhotic density in the partially visualize head of the right femur-right hip. This may indicate an element of avascular necrosis. Recommend dedicated bilateral hip views. DATA REPOSITORY: RADIATION DOSE DELIVERED:
--- NOTE | 2020-07-31 09:30 | DI.RAD_ITS ---
EXAM: XR KNEE RT 2V AP,LAT CLINICAL HISTORY: eval R knee pain - AP and Schuss, weightbearing. TECHNIQUE: 2D digital imaging was performed. COMPARISON: CR,XR XR KNEE RT 3V AP,LAT,NICOLE from 07/06/2020 FINDINGS: There is minimal narrowing of the medial joint space seen on the weight-bearing view. No marginal os teophytes noted. However, there is a very subtle calcific density seen in the medial compartment on the AP view. There is no narrowing of the lateral compartment but there is a small osteophyte coming off the inner aspect of the lateral femoral condyle. Tibial plateau appears unremarkable. Also not ed is a previously described calcific density off the superior aspect of the patella which measures 1 8 millimeters wide by 6 millimeters height. This may be related to prior avulsion injury at the quad riceps level versus enthesophyte. Also noted is a small enthesophyte at the level of the fibular hea d, this pointing inferomedially. This measures 5 x 3 millimeters. Also noted are multiple extraosseous soft tissue calcifications in the calf, seen on the previous sierra dy.. IMPRESSION: DATA REPOSITORY: RADIATION DOSE DELIVERED:
== END 2020-07-31 13:13 | disposition home or self-care (01) ==
LOC: DIORS 13:13
PROVIDERS: PCP Nurse Practitioner Family; Referring Provider Nurse Practitioner Family; Visit Provider Student in an Organized Health Care Education/Training Program
DX: M51.17 Intervertebral disc disorders with radiculopathy, lumbosacral region (principal); R29.898 Other symptoms and signs involving the musculoskeletal system; M25.561 Pain in right knee; R93.7 Abnormal findings on diagnostic imaging of other parts of musculoskeletal system
CPT/HCPCS: 72100; 73560

== ENCOUNTER 2020-08-29 11:45 | Outpatient (CLI) | payer BC, SELFPAY ==
[2020-08-29 12:41] LABS: Anion Gap 8.1 mmol/L (3-11); BUN 33 mg/dL (7-18); CO2 27.9 mmol/L (21.0-32.0); CREATININE 1.4 mg/dL (0.55-1.02); Calcium 9.2 mg/dL (8.5-10.1); Chloride 105 mmol/L (98-107); Estimated GFR 39.97 (mL/min/1.73m2); Glucose 120 mg/dL (74-106); Potassium 4.4 mmol/L (3.5-5.1); Sodium 141 mmol/L (136-145)
== END 2020-08-29 11:46 | disposition home or self-care (01) ==
LOC: LBO 11:46
PROVIDERS: PCP Nurse Practitioner Family; Visit Provider Nurse Practitioner Family
DX: E11.9 Type 2 diabetes mellitus without complications (principal)
CPT/HCPCS: 36415; 80048

== ENCOUNTER 2020-09-30 02:22 | Outpatient (CLI) | payer BC, SELFPAY ==
--- NOTE | 2020-09-30 11:45 | DI.MRI_ITS ---
Exam(s) MR LOWER JOINT RT WO EXAM: MR LOWER JOINT RT WO CLINICAL HISTORY: PRIMARY OA RT KNEE,M17.11,ACUTE MENISCAL INJURY,S83.8X1A,RT KNEE PAIN. TECHNIQUE: Multiplanar multisequence MRI was performed. COMPARISON: CR,XR XR KNEE RT 3V AP,LAT,NICOLE from 07/06/2020 CR XR KNEE RT 2V AP,LAT from 07/31/2020 CR XR KNEE RT 2V AP,LAT from 07/31/2020 FINDINGS: Exam is limited by the patient's body habitus. The patient was experiencing cramps during the exam a nd was unable to complete the standard sequences. There is a small joint effusion. There are severe degenerative changes of the lateral patellofemoral joint and prominent periarticular spurring and cartilage erosion extending down to bone. There is spu rring from the femoral condyles and tibial plateaus. There is no evidence of fracture or bone contusi on. The medial meniscus is peripherally displaced, consistent with degenerative changes. Posterior ho rn of the medial meniscus appears diminutive. There is abnormal vertically oriented signal near the m eniscal root suspicious for a tear. The lateral meniscus shows mild degenerative signal changes. The cruciate and collateral ligaments appear intact. There is some edema around the medial collateral lig ament which could indicate sprain. Extensor mechanism appears intact. There is mild edema in the ante rior subcutaneous fat. IMPRESSION: Somewhat limited exam due to patient body habitus. Tear of the posterior horn of the medial meniscus near the meniscal root. Underlying degenerative changes of the medial meniscus. Question of MCL sp rain. Severe degenerative changes of the patellofemoral joint. DATA REPOSITORY:
== END 2020-09-30 02:42 ==
PROVIDERS: PCP Nurse Practitioner Family; Visit Provider Nurse Practitioner Acute Care
DX: M25.561 Pain in right knee (principal); M17.11 Unilateral primary osteoarthritis, right knee; S83.241A Other tear of medial meniscus, current injury, right knee, initial encounter
CPT/HCPCS: 73721

== ENCOUNTER 2020-10-03 10:13 | Outpatient (CLI) | payer BC, SELFPAY ==
[2020-10-03 12:56] LABS: Anion Gap 5.8 mmol/L (3-11); BUN 29 mg/dL (7-18); CO2 29.2 mmol/L (21.0-32.0); CREATININE 1.4 mg/dL (0.55-1.02); Calcium 9.1 mg/dL (8.5-10.1); Chloride 103 mmol/L (98-107); Estimated GFR 39.97 (mL/min/1.73m2); Glucose 164 mg/dL (74-106); Sodium 138 mmol/L (136-145)
== END 2020-10-03 10:14 | disposition home or self-care (01) ==
LOC: LOS 10:14
PROVIDERS: PCP Nurse Practitioner Family; Referring Provider Nurse Practitioner Family; Visit Provider Nurse Practitioner Family
DX: E11.9 Type 2 diabetes mellitus without complications (principal)
CPT/HCPCS: 36415; 80048

== ENCOUNTER → 2021-09-04 01:00 | Outpatient (CLI) | payer BC, SELFPAY ==
--- NOTE | 2021-09-04 | DI.RAD_ITS ---
Exam(s) XR KNEE RT 3V AP,LAT,NICOLE EXAM: XR KNEE RT 3V AP,LAT,NICOLE CLINICAL HISTORY: RT KNEE PAIN UNSPECIFIED CHRONICITY, M25.561. TECHNIQUE: 2D digital imaging was performed. Three views. COMPARISON: CR,XR XR KNEE RT 3V AP,LAT,NICOLE from 07/06/2020 CR XR KNEE RT 2V AP,LAT from 07/31/2020 MR MR LOWER JOINT RT WO from 09/30/2020 FINDINGS: BONES: No acute fracture is present. No bony destructive lesion is seen. JOINTS: There has been interval worsening at of the medial femoral tibial joint space narrowing, now moderate to severe. There is periarticular spurring and sclerosis. There is varus angulation. Spur ring is also seen at the lateral femoral tibial joint and patellofemoral joint.. No joint effusion i s seen. SOFT TISSUE: Stable anterior calcifications in the subcutaneous fat. IMPRESSION: Worsening degenerative changes of the medial femoral tibial joint space, now moderate to severe. Deg enerative changes are also present at the patellofemoral joint. DATA REPOSITORY: RADIATION DOSE DELIVERED:
== END ==
PROVIDERS: PCP Nurse Practitioner Family; Visit Provider Nurse Practitioner Acute Care
DX: M25.561 Pain in right knee (principal); M17.11 Unilateral primary osteoarthritis, right knee
CPT/HCPCS: 73562

== ENCOUNTER 2021-09-23 02:24 | Outpatient (CLI) | payer BC, SELFPAY ==
[2021-09-23 12:47] LABS: Abs Immature Grans 0.05 10^3/uL (0.0-0.06); Absolute Basophil Count 0.07 10^3/uL (0.0-0.2); Absolute Eosinophil Count 0.27 10^3/uL (0.0-0.7); Absolute Lymphocyte Count 3.28 10^3/uL (1.2-3.4); Absolute Monocyte Count 0.64 10^3/uL (0.1-0.8); Absolute Neutrophil Count 7.83 10^3/uL (1.2-6.7); Basophils % 0.6; Eosinophils % 2.2; HCT 37.6 % (36.0-46.0); HGB 11.9 g/dL (11.2-15.7); Immature Grans % 0.4; MCH 29.9 pg (27.0-33.0); MCHC 31.6 % (32.0-36.0); MCV 95 fL (80-95); MPV 10.8 fL (8.0-11.0); Monocytes % 5.3; Neutrophils % 64.5; Platelet Count 382 10^3/uL (130-400); RBC 3.98 10^6/uL (3.93-5.22); RDW 13.6 % (11.7-14.6); RDW-SD 46.6 fL; WBC 12.14 10^3/uL (4.4-10.8)
[2021-09-23 13:12] LABS: Microalb ug/mg Crea 4.2 ug/mg Cr
[2021-09-23 13:22] LABS: Anion Gap 7.9 mmol/L (3-11); BUN 23 mg/dL (7-18); CO2 30.1 mmol/L (21.0-32.0); CREATININE 1.4 mg/dL (0.55-1.02); Calcium 8.2 mg/dL (8.5-10.1); Calculated LDL 159 mg/dL (<100); Chloride 102 mmol/L (98-107); Cholesterol 242 mg/dL (<200); Glucose 248 mg/dL (74-106); HDL Cholesterol 43 mg/dL (40-60); Potassium 4.5 mmol/L (3.5-5.1); Sodium 140 mmol/L (136-145); TSH 1.85 uIU/mL (0.36-3.74); Triglyceride 202 mg/dL (<150)
[2021-09-23 13:41] LABS: FREE T4 1.21 ng/dL (0.76-1.46)
== END 2021-09-23 02:25 | disposition home or self-care (01) ==
PROVIDERS: PCP Nurse Practitioner Family; Visit Provider Nurse Practitioner Family
DX: E03.9 Hypothyroidism, unspecified (principal); E78.5 Hyperlipidemia, unspecified; E11.9 Type 2 diabetes mellitus without complications
CPT/HCPCS: 36415; 80048; 80061; 82043; 82570; 84439; 84443; 85025

== ENCOUNTER 2021-09-25 18:07 | Outpatient (REF) | payer BC, SELFPAY ==
[2021-09-27 14:34] LABS: COVID-19 RT-PCR UVMMC Result Negative (Negative)
== END 2021-09-25 18:08 | disposition home or self-care (01) ==
LOC: LBN 18:07
PROVIDERS: PCP Nurse Practitioner Family; Visit Provider Family Medicine
DX: J02.9 Acute pharyngitis, unspecified (principal); K14.6 Glossodynia; Z20.822 Contact with and (suspected) exposure to COVID-19
CPT/HCPCS: 87102; 87206; U0003; 87070

== ENCOUNTER 2021-10-11 18:32 | Emergency (ER) | payer BC, SELFPAY ==
--- NOTE | 2021-10-11 18:35 | ED.GENADUL_ITS ---
Discharge Plan Disposition Patient Disposition: HOME Condition: Stable Discharge Details Clinical Impression: UTI (urinary tract infection) Primary Care Provider: Malka Reis ED Provider: Valarie Bennett Home Meds and New Rx's Prescriptions: New cephalexin 500 mg capsule 500 mg PO BID 7 Days Qty: 14 0RF fluconazole [Diflucan] 150 mg tablet 150 mg PO Q3D Qty: 2 0RF phenazopyridine [Pyridium] 200 mg tablet 200 mg PO TID PRN (Reason: pain) Qty: 6 0RF metronidazole 500 mg tablet 500 mg PO BID Qty: 14 0RF Continued Flovent HFA 110 mcg/actuation HFA aerosol inhaler 110 mcg Inhalation BID Qty: 12 4RF (DME) blood sugar diagnostic Strip See Rx Instructions .ROUTE .MEDSUPPLY Qty: 200 4RF Rx Instructions: Check blood sugar twice a day fluticasone propionate [Allergy Relief (fluticasone)] 50 mcg/actuation spray,suspension 2 spray MIKEL DAILY PRN (Reason: allergy symptoms) Qty: 15.8 4RF Rx Instructions: administer into each nostril (DME) lancets [OneTouch UltraSoft Lancets] Misc See Rx Instructions .ROUTE .MEDSUPPLY Qty: 200 4RF Rx Instructions: Check blood sugar twice a day lisinopril 20 mg tablet 20 mg PO DAILY Qty: 90 4RF omeprazole 20 mg capsule,delayed release(DR/EC) 20 mg PO DAILY Qty: 90 4RF (DME) pen needle, diabetic 31 gauge x 1/3 needle 1 ea Miscellaneous DAILY Qty: 100 4RF Rx Instructions: Use with insulin pen once a day ibuprofen [Advil] 200 mg tablet 200 mg PO QID PRN Label Comments: takes 2, 3 or 4 as needed glucose [Dex4 Glucose Quick Dissolve] 4 gram tablet,chewable 16 g PO ONCE PRN (Reason: hypoglycemia) Qty: 60 4RF Rx Instructions: Chew 4 pills once for low blood sugar < 70, may repeat once after 15 minutes if no response baclofen 10 mg tablet 10 mg PO TID PRN (Reason: back pain) Qty: 90 0RF Tresiba FlexTouch U-100 100 unit/mL (3 mL) insulin pen 34 unit subcut QHS Qty: 12 4RF ipratropium-albuterol 0.5 mg-3 mg(2.5 mg base)/3 mL solution for nebulization 3 ml Inhalation QID PRN (Reason: shortness of breath or wheezing) Qty: 90 4RF metformin 1,000 mg tablet 1,000 mg PO BID Qty: 180 3RF Rx Instructions: 1 tablet twice a day hydrochlorothiazide 25 mg tablet 25 mg PO DAILY Qty: 90 3RF Rx Instructions: Take 1 tablet once a day spironolactone 50 mg tablet 50 mg PO DAILY Qty: 90 3RF glipizide 5 mg tablet 5 mg PO DAILY Qty: 90 3RF rosuvastatin 5 mg tablet 5 mg PO .COMPLEX Qty: 45 3RF Rx Instructions: 5 mg orally; one tab every other day amoxicillin 875 mg tablet 875 mg PO BID Qty: 14 0RF (DME) 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 meter [the grafter Ultra2 Meter] 1 EACH kit 1 ea Miscellaneous DAILY Qty: 1 0RF albuterol sulfate [Proventil HFA] 90 mcg/actuation HFA aerosol inhaler 2 puff Inhalation Q6H PRN (Reason: shortness of breath or wheezing) Qty: 54 4RF magnesium oxide 500 mg capsule 500 mg PO DAILY Qty: 90 4RF diclofenac sodium 50 mg tablet,delayed release (DR/EC) 50 mg PO Q12H PRN (Reason: pain) Qty: 90 2RF Victoza 3-Virgil 0.6 mg/0.1 mL (18 mg/3 mL) pen injector 1.2 mg subcut DAILY Qty: 9 4RF Rx Instructions: Inject 1.2mg daily levothyroxine 112 mcg tablet 112 mcg PO DAILY Qty: 90 3RF codeine-guaifenesin 10-100 mg/5 mL liquid See Rx Instructions PO Q6H PRN (Reason: cough) Qty: 120 0RF Rx Instructions: one to two teaspoons PO every 6 hours PRN; Discharge Instructions Instructions: Urinary Tract Infection in Women (ED) Additional Instructions: It is suspected that your symptoms are secondary to a urinary tract infection. A prescription for the antibiotic Keflex has been sent electronically to your pharmacy. Take this as directed until finished. You are also being sent home with a urinary analgesic medication Pyridium to take as needed and directed for pain. Be aware that this can change the color of your urine to orange. You are also being given a prescription for Diflucan which can be taken if you develop signs of a yeast infection. A vaginal pathogen screen was obtained today. You will be notified if your results are positive and if an additional antibiotic is needed to be sent to your pharmacy. Follow-up with your primary care doctor in 1 week. Return to the emergency department with any worsening or new concerning symptoms. Discharge Data Discharge Date/Time-TO BE ENTERED AT DEPARTURE: 10/11/21 20:03 Discharge Physician: Valarie Bennett Medical Decision Making 51yo F w/ a h/o morbid obesity, obstructive sleep apnea, hypertension, hyperlipidemia, diabetes, asthma, gerd w/ a c/o urinary frequency, urgency, dysuria and suprapubic pressure since this morning. Also complaining of a painful lesion within her perineum that popped a few days ago with some relief in her pressure but continued bleeding in the area. Blood pressure hypertensive and heart rate mildly elevated. Her abdomen is obese but essentially nontender without rigidity or guarding. 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 No abscesses, vesicles, warts or other lesions noted. No significant vaginal bleeding noted. Vaginal speculum exam noted minimal bleeding within endocervical canal. Strings of IUD present within the cervical canal. No obvious vaginal discharge or lesions or ulcers noted. No cervical motion or adnexal mass or tenderness. Urinalysis obtained and notes 3-5 WBCs, trace leukocyte esterase with rare bacteria and moderate epithelial cells. Discussed results with patient and that we could obtain another clean-catch urine sample to send for culture or consider straight cath urine sample. Patient is declining catheterization and does not want to give another clean-catch urine. She would rather treat with antibiotics at this time. We will treat with Keflex and provide with Diflucan as she states she is prone to yeast infections. She also states she would rather not wait for the vaginal path screen. She was notified that she will be informed of the vaginal path screen results once available. Case d/w oncoming provider Dr. Kidd who will follow up on the vaginal pathogen screen results and follow-up with patient. Advised to follow up with the primary care doctor for re-evaluati on. Usual and customary return precautions given prior to discharge. Medical Records Medical records reviewed: Yes I reviewed the patient's medical records. Lab Data Lab results reviewed: Yes I reviewed the patient's lab results. Labs: 10/11/21 19:42 Vaginal Vaginitis Screen - Final Laboratory Tests Range/Units 10/11/21 19:23 Urine Color (Yellow) Yellow Urine Clarity (Clear) Clear Urine pH (5-8) 5.5 Ur Specific [place] (1.005-1.025) 1.025 Urine Protein (Negative) mg/dL Negative Urine Ketones (Negative) mg/dL Negative Urine Blood (Negative) Moderate H Urine Nitrite (Negative) Negative Urine Bilirubin (Negative) Negative Urine Urobilinogen (Up TO 0.2) EU/dL 0.2 Ur Leukocyte Esterase (Negative) Trace H Urine RBC (0-2) HPF 0-2 Urine WBC (0-5) HPF 3-5 Ur Epithelial Cells (Negative) HPF Moderate Urine Crystals (Negative) HPF Negative Urine Bacteria (Negative) HPF Rare Urine Mucus (Negative) Trace Ur Culture Indicated? No/Sq. Contamination Urine Glucose (Negative) mg/dL Negative HPI General Mode of arrival: ambulatory . Date/Time Provider Initiated Documentation: 10/11/21 18:33 . Limitations to Documentation: no limitations . Information obtained by: patient . HPI Narrative: Pt is a 51yo F w/ a h/o morbid obesity, obstructive sleep apnea, hypertension, hyperlipidemia, diabetes, asthma, gerd who presents to the ED with a complaint of urinary frequency, urgency, suprapubic pressure since this morning. She also states that she noticed a painful lesion within her perineum a few days ago. She states it popped and has been bleeding intermittently since then but the pain is improved. She also states she was on Augmentin recently for a throat infection and developed vaginal itching after that which is since resolved. She denies any white vaginal discharge. She denies any fever, nausea, vomiting, diarrhea. Related Data Home Medications Medication Instructions Recorded Confirmed 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 meter (the grafter ##1 10/17/17 10/11/21 Ultra2 Meter kit) fluticasone propionate 110 110 mcg inhalation BID #12 grams 04/27/18 10/11/21 mcg/actuation HFA aerosol inhaler (Flovent HFA) ibuprofen 200 mg tablet (Advil) 200 mg PO QID PRN 10/12/18 10/11/21 glucose 4 gram chewable tablet 16 g PO ONCE PRN hypoglycemia #60 10/03/20 10/11/21 (Dex4 Glucose Quick Dissolve) tabs baclofen 10 mg tablet 10 mg PO TID PRN back pain #90 tabs 01/08/21 10/11/21 albuterol sulfate 90 mcg/actuation 2 puff inhalation Q6H PRN 02/18/21 10/11/21 aerosol inhaler (Proventil HFA) shortness of breath or wheezing #54 grams blood sugar diagnostic #200 ea 05/11/21 10/11/21 fluticasone propionate 50 2 spray intranasal DAILY PRN 05/11/21 10/11/21 mcg/actuation nasal allergy symptoms #15.8 grams spray,suspension (Allergy Relief (fluticasone)) lancets (OneTouch UltraSoft #200 ea 05/11/21 10/11/21 Lancets) lisinopril 20 mg tablet 20 mg PO DAILY #90 tabs 05/11/21 10/11/21 omeprazole 20 mg capsule,delayed 20 mg PO DAILY #90 caps 05/11/21 10/11/21 release pen needle, diabetic 31 gauge x ##100 05/11/21 10/11/21 1/ magnesium oxide 500 mg capsule 500 mg PO DAILY #90 caps 06/26/21 10/11/21 insulin degludec 100 unit/mL (3 34 unit (0.34 mL) subcut QHS #12 07/01/21 10/11/21 mL) subcutaneous pen (Tresiba SYRGS FlexTouch U-100 insulin) diclofenac sodium 50 mg 50 mg PO Q12H PRN pain #90 tabs 08/12/21 10/11/21 tablet,delayed release glipizide 5 mg tablet 5 mg PO DAILY #90 tabs 08/21/21 10/11/21 hydrochlorothiazide 25 mg tablet 25 mg PO DAILY #90 tabs 08/21/21 10/11/21 ipratropium 0.5 mg-albuterol 3 mg 3 ml inhalation QID PRN shortness 08/21/21 10/11/21 (2.5 mg base)/3 mL nebulization of breath or wheezing #90 mL soln metformin 1,000 mg tablet 1,000 mg PO BID #180 tab-caps 08/21/21 10/11/21 spironolactone 50 mg tablet 50 mg PO DAILY #90 tabs 08/21/21 10/11/21 liraglutide 0.6 mg/0.1 mL (18 mg/3 1.2 mg (0.2 mL) subcut DAILY #9 mL 08/27/21 10/11/21 mL) subcutaneous pen injector (Victoza 3-Virgil) amoxicillin 875 mg tablet 875 mg PO BID #14 tabs 09/25/21 10/11/21 levothyroxine 112 mcg tablet 112 mcg PO DAILY #90 tabs 09/25/21 10/11/21 rosuvastatin 5 mg tablet 5 mg PO .COMPLEX #45 tabs 09/25/21 10/11/21 codeine 10 mg-guaifenesin 100 mg/5 See Rx Instructions PO Q6H PRN 09/30/21 10/11/21 mL oral liquid cough #120 mL cephalexin 500 mg capsule 500 mg PO BID 7 days #14 caps 10/11/21 fluconazole 150 mg tablet 150 mg PO Q3D 2 doses #2 tabs 10/11/21 (Diflucan) metronidazole 500 mg tablet 500 mg PO BID #14 tabs 10/11/21 phenazopyridine 200 mg tablet 200 mg PO TID PRN pain 6 doses #6 10/11/21 (Pyridium) tabs Previous Rx's Medication Instructions Recorded 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 meter (the grafter ##1 10/17/17 Ultra2 Meter kit) fluticasone propionate 110 110 mcg inhalation BID #12 grams 04/27/18 mcg/actuation HFA aerosol inhaler (Flovent HFA) glucose 4 gram chewable tablet 16 g PO ONCE PRN hypoglycemia #60 10/03/20 (Dex4 Glucose Quick Dissolve) tabs baclofen 10 mg tablet 10 mg PO TID PRN back pain #90 tabs 01/08/21 albuterol sulfate 90 mcg/actuation 2 puff inhalation Q6H PRN 02/18/21 aerosol inhaler (Proventil HFA) shortness of breath or wheezing #54 grams blood sugar diagnostic #200 ea 05/11/21 fluticasone propionate 50 2 spray intranasal DAILY PRN 05/11/21 mcg/actuation nasal allergy symptoms #15.8 grams spray,suspension (Allergy Relief (fluticasone)) lancets (the grafter UltraSoft #200 ea 05/11/21 Lancets) lisinopril 20 mg tablet 20 mg PO DAILY #90 tabs 05/11/21 omeprazole 20 mg capsule,delayed 20 mg PO DAILY #90 caps 05/11/21 release pen needle, diabetic 31 gauge x ##100 05/11/2105/11 magnesium oxide 500 mg capsule 500 mg PO DAILY #90 caps 06/26/21 insulin degludec 100 unit/mL (3 34 unit (0.34 mL) subcut QHS #12 07/01/21 mL) subcutaneous pen (Tresiba SYRGS FlexTouch U-100 insulin) diclofenac sodium 50 mg 50 mg PO Q12H PRN pain #90 tabs 08/12/21 tablet,delayed release glipizide 5 mg tablet 5 mg PO DAILY #90 tabs 08/21/21 hydrochlorothiazide 25 mg tablet 25 mg PO DAILY #90 tabs 08/21/21 ipratropium 0.5 mg-albuterol 3 mg 3 ml inhalation QID PRN shortness 08/21/21 (2.5 mg base)/3 mL nebulization of breath or wheezing #90 mL soln metformin 1,000 mg tablet 1,000 mg PO BID #180 tab-caps 08/21/21 spironolactone 50 mg tablet 50 mg PO DAILY #90 tabs 08/21/21 liraglutide 0.6 mg/0.1 mL (18 mg/3 1.2 mg (0.2 mL) subcut DAILY #9 mL 08/27/21 mL) subcutaneous pen injector (Quarticstoza 3-Virgil) amoxicillin 875 mg tablet 875 mg PO BID #14 tabs 09/25/21 levothyroxine 112 mcg tablet 112 mcg PO DAILY #90 tabs 09/25/21 rosuvastatin 5 mg tablet 5 mg PO .COMPLEX #45 tabs 09/25/21 codeine 10 mg-guaifenesin 100 mg/5 See Rx Instructions PO Q6H PRN 09/30/21 mL oral liquid cough #120 mL cephalexin 500 mg capsule 500 mg PO BID 7 days #14 caps 10/11/21 fluconazole 150 mg tablet 150 mg PO Q3D 2 doses #2 tabs 10/11/21 (Diflucan) metronidazole 500 mg tablet 500 mg PO BID #14 tabs 10/11/21 phenazopyridine 200 mg tablet 200 mg PO TID PRN pain 6 doses #6 10/11/21 (Pyridium) tabs Allergies Allergy/AdvReac Type Severity Reaction Status Date / Time cigarette smoke Allergy Verified 10/11/21 18:52 mold Allergy Verified 10/11/21 18:52 General Stated Complaint: Urinary SAMMY: 4 Review of Systems All systems reviewed & are unremarkable except as noted in HPI and below Constitutional Constitutional: Denies chills, Denies excessive sweating, Denies fatigue, Denies fever(s), Denies weakness and Denies weight loss Eyes Eyes: Reports system reviewed and no additional complaints, except as documented and Denies blurry vision ENT Ears, Nose, Mouth, and Throat: Denies vertigo, Denies dizziness, Denies otalgia, Denies nasal congestion, Denies sore throat and Denies throat swelling Cardiovascular Cardiovascular: Denies chest pain, Denies syncope, Denies rapid heart rate and Denies dyspnea Respiratory Respiratory: Denies chest congestion, Denies cough, Denies pain on inspiration and Denies dyspnea Gastrointestinal Gastrointestinal: Reports abdominal pain, Denies diarrhea and Denies vomiting Genitourinary Genitourinary: Denies hematuria, Reports dysuria, Denies flank pain, Reports urinary hesitancy, Reports urinary urgency and Reports other (urinary frequency) Musculoskeletal Musculoskeletal: Denies back pain and Denies joint swelling Integumentary/Breasts Skin/Breast: Denies lesions and Denies rash Neurologic Neurologic: Denies behavioral changes, Denies confusion, Denies vertigo, Denies dizziness, Denies syncope, Denies localized weakness and Denies weakness Psychiatric Psychiatric: Denies behavioral changes, Denies confusion and Denies depression Endocrine Endocrine: Denies excessive sweating and Denies fatigue Hematologic/Lymphatic Hematologic/Lymphatic: Denies easy bruising and Denies lymphadenopathy Allergic/Immunologic Allergic/Immunologic: Denies throat swelling PFSH All Active Problems (Updated 10/11/21 @ 19:51 by Valarie Bennett DO) UTI (urinary tract infection) (Acute) 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) Followed by [facility] Patellofemoral arthritis of right knee (Chronic) Chronic arthralgias of knees and hips (Acute) Primary osteoarthritis of left knee (Acute) Steroid injection: 03/26/2019 Synvisc injection: 09/28/2018 Hypomagnesemia (Chronic) Morbidly obese (Acute) Medical History (Updated 10/11/21 @ 19:51 by Valarie Bennett DO) Chronic kidney disease 09/2021- stage 3 Cr-1.4 Essential hypertension GERD (gastroesophageal reflux disease) Hyperlipidemia Hypothyroidism Mild persistent asthma Obstructive sleep apnea syndrome No CPAP, unable to tolerate mask Type 2 diabetes mellitus Surgical History History of repair of left hip joint Family History Mother Essential hypertension Heart disease Hyperlipidemia Alcohol abuse Father , at 94 of [place] Essential hypertension Diabetes Heart disease Stroke Hyperlipidemia Alcohol abuse Sister Depression Substance abuse Sister No problems noted. Brother No problems noted. Brother No problems noted. Son Asthma Daughter Asthma Depression Daughter Asthma Depression Maternal Grandfather , at 81 Alcohol abuse Diabetes Asthma Stroke Essential hypertension Hyperlipidemia Heart disease Maternal Grandmother , at 83 of brain aneurysm Essential hypertension Heart disease Paternal Grandfather No problems noted. Paternal Grandmother No problems noted. 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 Current gender identity: female What type of physical activity do you participate in: walking Frequency: daily Seatbelt use: always Do you feel safe at home: Yes Do you feel safe in your relationship?: Yes Exam Const General: cooperative and healthy appearing Orientation: alert and awake HENMT Head: normal to inspection Ears: hearing grossly normal bilaterally and external ears normal Eyes General: appearance normal, both eyes and all related structures Eyelids: eyelids normal Pupils: PERRL EOM: EOM intact bilaterally Neck Neck: normal visual inspection Lymphatic: no lymphadenopathy noted Chest Chest: normal inspection of the chest Resp Effort & Inspection: normal respiratory effort and able to speak in complete sentences Auscultation: clear to auscultation bilaterally Cardio Rate: regular rate Rhythm: regular rhythm GI Inspection: normal to inspection and obesity Palpation: soft, not firm, no guarding, no hepatosplenomegaly, no masses and nontender Auscultation: normal bowel sounds External Female Exam: normal external appearance, no erythema, no tenderness externally, no external swelling, no lesions, no lacerations, no ecchymosis, No urethral discharge and No lesion Speculum Exam - Vagina: normal appearance of the vagina and vaginal bleeding (minimal noted within vaginal vault) Speculum Exam - Cervix: normal appearance of the cervix, normal vervical discharge, nontender and other (minimal blood noted around cervix and endocervical;no active bleeding noted) Bimanual Exam- Vagina & Uterus: normal bimanual exam and No tender Bimanual Exam- Adnexa, other: normal adnexae, no masses and no tenderness OB/External & Speculum: vaginal bleeding (minimal noted within vaginal vault) Back/Spine/Pelvis Back: no CVA tenderness Skin General skin exam: no rashes or lesions noted Neuro General: patient alert and patient awake Cognition: normal cognition Speech: speech normal Gait: normal gait Motor: muscle tone normal throughout Sensory Exam: no sensory deficits noted Extrem General: normal to inspection, full ROM and capillary refill normal Psych Appearance: grossly normal Mental Status: mental status grossly normal Speech and Movement: speech and movement normal Affect: normal affect Thought Process: normal
[2021-10-11 18:36] VITALS: BP 183/95; PULSE 108; RESP 16; TEMP 36.8; O2SAT 98
[2021-10-11 19:31] LABS: Bilirubin Negative (Negative); Blood Moderate (Negative); Clarity Clear (Clear); Glucose Negative (Negative); Ketones Negative (Negative); Leukocyte Esterase Trace (Negative); Nitrite Negative (Negative); Specific Gravity 1.025 (1.005-1.025); Urobilinogen 0.2 EU/dL (Up TO 0.2); pH 5.5 (5-8)
[2021-10-11 19:42] LABS: Bacteria Rare HPF (Negative); Epithelial Cells Moderate HPF (Negative); RBC 0-2 HPF (0-2)
[2021-10-11 19:43] LABS: C & S Indicated? No/Sq. Contamination; Crystals Negative HPF (Negative); Mucus Trace (Negative)
[2021-10-11] MEDS: Cephalexin 500 MG CAP, 2 CAPS/BTL PO (19:55)
[2021-10-11] MEDS: Cephalexin 500 MG CAP PO (19:56)
--- NOTE | 2021-10-11 22:26 | W.ED.FU ---
Date of service: 10/11/21 Time of Service: 21:26 Follow Up Plan: I was asked to follow-up on the patient's vaginal Path screen/smear. Patient is positive for Gardnerella. I did call the patient and discussed that with her. I discussed risks and benefits of metronidazole, and she would like the prescription for the medication. We will send this to her pharmacy. I have extensively reviewed the treatment plan and discharge instructions with the patient. I have addressed all patient concerns at this time. The patient was made aware of what symptoms to monitor for that would warrant a return to the emergency department. Discussed the plan with the patient, they demonstrate verbal understanding and agreement with our assessment and plan at this time. The documentation in this chart was dictated using [employer] dictation software. Please excuse any dictation errors.
== END 2021-10-11 20:03 | disposition home or self-care (01) ==
PROVIDERS: Emergency Provider Physician Assistant; PCP Nurse Practitioner Family
DX: N39.0 Urinary tract infection, site not specified (principal); B96.89 Other specified bacterial agents as the cause of diseases classified elsewhere; E11.9 Type 2 diabetes mellitus without complications; I10 Essential (primary) hypertension
CPT/HCPCS: 99283; 81003; 81015; 87480; 87510; 87660

== ENCOUNTER 2021-12-02 12:46 | Emergency (ER) | payer OTHER, SELFPAY ==
[2021-12-02 13:02] VITALS: BP 141/81; PULSE 98; RESP 18; TEMP 36.9; O2SAT 97
--- NOTE | 2021-12-02 13:11 | W.ED.GENAD ---
Discharge Plan Disposition Patient Disposition: HOME Condition: Improving Discharge Details Clinical Impression: Dog bite of left thumb Primary Care Provider: Malka Reis ED Provider: Sanket Moreau Home Meds and New Rx's Prescriptions: New amoxicillin-pot clavulanate 875-125 mg tablet 1 tab PO BID 10 Days Qty: 20 0RF Continued fluticasone propionate [Flovent HFA] 110 mcg/actuation HFA aerosol inhaler 110 mcg Inhalation BID Qty: 12 4RF fluticasone propionate [Allergy Relief (fluticasone)] 50 mcg/actuation spray,suspension 2 spray MIKEL DAILY PRN (Reason: allergy symptoms) Qty: 15.8 4RF Rx Instructions: administer into each nostril lisinopril 20 mg tablet 20 mg PO DAILY Qty: 90 4RF omeprazole 20 mg capsule,delayed release(DR/EC) 20 mg PO DAILY Qty: 90 4RF ibuprofen [Advil] 200 mg tablet 200 mg PO QID PRN Label Comments: takes 2, 3 or 4 as needed ipratropium-albuterol 0.5 mg-3 mg(2.5 mg base)/3 mL solution for nebulization 3 ml Inhalation QID PRN (Reason: shortness of breath or wheezing) Qty: 90 4RF metformin 1,000 mg tablet 1,000 mg PO BID Qty: 180 3RF Rx Instructions: 1 tablet twice a day hydrochlorothiazide 25 mg tablet 25 mg PO DAILY Qty: 90 3RF Rx Instructions: Take 1 tablet once a day spironolactone 50 mg tablet 50 mg PO DAILY Qty: 90 3RF glipizide 5 mg tablet 5 mg PO DAILY Qty: 90 3RF rosuvastatin 5 mg tablet 5 mg PO .COMPLEX Qty: 45 3RF Rx Instructions: 5 mg orally; one tab every other day albuterol sulfate [Proventil HFA] 90 mcg/actuation HFA aerosol inhaler 2 puff Inhalation Q6H PRN (Reason: shortness of breath or wheezing) Qty: 54 4RF magnesium oxide 500 mg capsule 500 mg PO DAILY Qty: 90 4RF Victoza 3-Virgil 0.6 mg/0.1 mL (18 mg/3 mL) pen injector 1.2 mg subcut DAILY Qty: 9 4RF Rx Instructions: Inject 1.2mg daily levothyroxine 112 mcg tablet 112 mcg PO DAILY Qty: 90 3RF insulin glargine [Lantus Solostar U-100 Insulin] 100 unit/mL (3 mL) insulin pen 24 - 40 unit subcut DAILY Qty: 15 0RF Rx Instructions: titrate up as needed No Action (DME) blood sugar diagnostic Strip See Rx Instructions .ROUTE .MEDSUPPLY Qty: 200 4RF Rx Instructions: Check blood sugar twice a day (DME) lancets [OneTouch UltraSoft Lancets] Misc See Rx Instructions .ROUTE .MEDSUPPLY Qty: 200 4RF Rx Instructions: Check blood sugar twice a day (DME) pen needle, diabetic 31 gauge x 1/3 needle 1 ea Miscellaneous DAILY Qty: 100 4RF Rx Instructions: Use with insulin pen once a day glucose [Dex4 Glucose Quick Dissolve] 4 gram tablet,chewable 16 g PO ONCE PRN (Reason: hypoglycemia) Qty: 60 4RF Rx Instructions: Chew 4 pills once for low blood sugar < 70, may repeat once after 15 minutes if no response baclofen 10 mg tablet 10 mg PO TID PRN (Reason: back pain) Qty: 90 0RF amoxicillin 875 mg tablet 875 mg PO BID Qty: 14 0RF (DME) 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 meter [[employer] Ultra2 Meter] 1 EACH kit 1 ea Miscellaneous DAILY Qty: 1 0RF diclofenac sodium 50 mg tablet,delayed release (DR/EC) 50 mg PO Q12H PRN (Reason: pain) Qty: 90 2RF codeine-guaifenesin 10-100 mg/5 mL liquid See Rx Instructions PO Q6H PRN (Reason: cough) Qty: 120 0RF Rx Instructions: one to two teaspoons PO every 6 hours PRN; fluconazole [Diflucan] 150 mg tablet 150 mg PO Q3D Qty: 2 0RF phenazopyridine [Pyridium] 200 mg tablet 200 mg PO TID PRN (Reason: pain) Qty: 6 0RF metronidazole 500 mg tablet 500 mg PO BID Qty: 14 0RF Discharge Instructions Instructions: Animal Bite (ED) Additional Instructions: Take please take antibiotics as prescribed until finished. Your tetanus is updated today. Return if you develop increasing pain, redness spreading up the arm, fever, or any other acute concerns Medical Decision Making 16-year-old female presents after being bitten by her new puppy dog. The dog came from a breeder and is not a wild dog. Patient not injured in any other way. She has a puncture wound on the dorsum of the left thumb. There is no other significant findings. Tetanus is updated and I will place her on a course of Augmentin. The wound was cleansed, and dressed by nurses HPI General Mode of arrival: ambulatory. Date/Time Provider Initiated Documentation: 12/02/21 13:00. Limitations to Documentation: no limitations. Information obtained by: patient. History of Present Illness 51 year old F presents to the emergency department with the chief complaint of Tendon left thumb by puppy dog, described as mild, Quality is described as dull and constant, and is localized to the left and upper extremity. Patient reports no radiation. Patient started experiencing this minute(s) and it has been constant. No relieving factors improve symptom(s), Patient notes denies fever/chills. Patient did receive the following treatments prior to arrival, none Related Data Home Medications Medication Instructions Recorded Confirmed 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 meter (Sunible ##1 10/17/17 12/02/21 Ultra2 Meter kit) fluticasone propionate 110 110 mcg inhalation BID #12 grams 04/27/18 12/02/21 mcg/actuation HFA aerosol inhaler (Flovent HFA) ibuprofen 200 mg tablet (Advil) 200 mg PO QID PRN 10/12/18 12/02/21 glucose 4 gram chewable tablet 16 g PO ONCE PRN hypoglycemia #60 10/03/20 12/02/21 (Dex4 Glucose Quick Dissolve) tabs baclofen 10 mg tablet 10 mg PO TID PRN back pain #90 tabs 01/08/21 12/02/21 albuterol sulfate 90 mcg/actuation 2 puff inhalation Q6H PRN 02/18/21 12/02/21 aerosol inhaler (Proventil HFA) shortness of breath or wheezing #54 grams blood sugar diagnostic #200 ea 05/11/21 12/02/21 fluticasone propionate 50 2 spray intranasal DAILY PRN 05/11/21 12/02/21 mcg/actuation nasal allergy symptoms #15.8 grams spray,suspension (Allergy Relief (fluticasone)) lancets ([employer] UltraSoft #200 ea 05/11/21 12/02/21 Lancets) lisinopril 20 mg tablet 20 mg PO DAILY #90 tabs 05/11/21 12/02/21 omeprazole 20 mg capsule,delayed 20 mg PO DAILY #90 caps 05/11/21 12/02/21 release pen needle, diabetic 31 gauge x ##100 05/11/21 12/02/2105/11 magnesium oxide 500 mg capsule 500 mg PO DAILY #90 caps 06/26/21 12/02/21 diclofenac sodium 50 mg 50 mg PO Q12H PRN pain #90 tabs 08/12/21 12/02/21 tablet,delayed release glipizide 5 mg tablet 5 mg PO DAILY #90 tabs 08/21/21 12/02/21 hydrochlorothiazide 25 mg tablet 25 mg PO DAILY #90 tabs 08/21/21 12/02/21 ipratropium 0.5 mg-albuterol 3 mg 3 ml inhalation QID PRN shortness 08/21/21 12/02/21 (2.5 mg base)/3 mL nebulization of breath or wheezing #90 mL soln metformin 1,000 mg tablet 1,000 mg PO BID #180 tab-caps 08/21/21 12/02/21 spironolactone 50 mg tablet 50 mg PO DAILY #90 tabs 08/21/21 12/02/21 liraglutide 0.6 mg/0.1 mL (18 mg/3 1.2 mg (0.2 mL) subcut DAILY #9 mL 08/27/21 12/02/21 mL) subcutaneous pen injector (Equiendoza 3-Virgil) amoxicillin 875 mg tablet 875 mg PO BID #14 tabs 09/25/21 12/02/21 levothyroxine 112 mcg tablet 112 mcg PO DAILY #90 tabs 09/25/21 12/02/21 rosuvastatin 5 mg tablet 5 mg PO .COMPLEX #45 tabs 09/25/21 12/02/21 codeine 10 mg-guaifenesin 100 mg/5 See Rx Instructions PO Q6H PRN 09/30/21 12/02/21 mL oral liquid cough #120 mL fluconazole 150 mg tablet 150 mg PO Q3D 2 doses #2 tabs 10/11/21 12/02/21 (Diflucan) metronidazole 500 mg tablet 500 mg PO BID #14 tabs 10/11/21 12/02/21 phenazopyridine 200 mg tablet 200 mg PO TID PRN pain 6 doses #6 10/11/21 12/02/21 (Pyridium) tabs insulin glargine 100 unit/mL (3 24 - 40 unit (0.24 - 0.4 mL) 12/01/21 12/02/21 mL) subcutaneous pen (Lantus subcut DAILY #15 mL Solostar U-100 Insulin) amoxicillin 875 mg-potassium 1 tab PO BID 10 days #20 tabs 12/02/21 clavulanate 125 mg tablet Previous Rx's Medication Instructions Recorded 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 meter (Sunible ##1 10/17/17 Ultra2 Meter kit) fluticasone propionate 110 110 mcg inhalation BID #12 grams 04/27/18 mcg/actuation HFA aerosol inhaler (Flovent HFA) glucose 4 gram chewable tablet 16 g PO ONCE PRN hypoglycemia #60 10/03/20 (Dex4 Glucose Quick Dissolve) tabs baclofen 10 mg tablet 10 mg PO TID PRN back pain #90 tabs 01/08/21 albuterol sulfate 90 mcg/actuation 2 puff inhalation Q6H PRN 02/18/21 aerosol inhaler (Proventil HFA) shortness of breath or wheezing #54 grams blood sugar diagnostic #200 ea 05/11/21 fluticasone propionate 50 2 spray intranasal DAILY PRN 05/11/21 mcg/actuation nasal allergy symptoms #15.8 grams spray,suspension (Allergy Relief (fluticasone)) lancets ([employer] UltraSoft #200 ea 05/11/21 Lancets) lisinopril 20 mg tablet 20 mg PO DAILY #90 tabs 05/11/21 omeprazole 20 mg capsule,delayed 20 mg PO DAILY #90 caps 05/11/21 release pen needle, diabetic 31 gauge x ##100 05/11/2105/11 magnesium oxide 500 mg capsule 500 mg PO DAILY #90 caps 06/26/21 diclofenac sodium 50 mg 50 mg PO Q12H PRN pain #90 tabs 08/12/21 tablet,delayed release glipizide 5 mg tablet 5 mg PO DAILY #90 tabs 08/21/21 hydrochlorothiazide 25 mg tablet 25 mg PO DAILY #90 tabs 08/21/21 ipratropium 0.5 mg-albuterol 3 mg 3 ml inhalation QID PRN shortness 08/21/21 (2.5 mg base)/3 mL nebulization of breath or wheezing #90 mL soln metformin 1,000 mg tablet 1,000 mg PO BID #180 tab-caps 08/21/21 spironolactone 50 mg tablet 50 mg PO DAILY #90 tabs 08/21/21 liraglutide 0.6 mg/0.1 mL (18 mg/3 1.2 mg (0.2 mL) subcut DAILY #9 mL 08/27/21 mL) subcutaneous pen injector (Equiendoza 3-Virgil) amoxicillin 875 mg tablet 875 mg PO BID #14 tabs 09/25/21 levothyroxine 112 mcg tablet 112 mcg PO DAILY #90 tabs 09/25/21 rosuvastatin 5 mg tablet 5 mg PO .COMPLEX #45 tabs 09/25/21 codeine 10 mg-guaifenesin 100 mg/5 See Rx Instructions PO Q6H PRN 09/30/21 mL oral liquid cough #120 mL fluconazole 150 mg tablet 150 mg PO Q3D 2 doses #2 tabs 10/11/21 (Diflucan) metronidazole 500 mg tablet 500 mg PO BID #14 tabs 10/11/21 phenazopyridine 200 mg tablet 200 mg PO TID PRN pain 6 doses #6 10/11/21 (Pyridium) tabs insulin glargine 100 unit/mL (3 24 - 40 unit (0.24 - 0.4 mL) 12/01/21 mL) subcutaneous pen (Lantus subcut DAILY #15 mL Solostar U-100 Insulin) amoxicillin 875 mg-potassium 1 tab PO BID 10 days #20 tabs 12/02/21 clavulanate 125 mg tablet Allergies Allergy/AdvReac Type Severity Reaction Status Date / Time cigarette smoke Allergy Verified 12/02/21 13:08 mold Allergy Verified 12/02/21 13:08 General Stated Complaint: AnimalBite SAMMY: 4 Review of Systems Narrative: Tetanus out of date. No other injury. No numbness. 4 systems were reviewed and otherwise negative PFSH All Active Problems (Updated 12/02/21 @ 13:14 by Sanket Moreau MD) Dog bite of left thumb (Acute) 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) Followed by [facility] Patellofemoral arthritis of right knee (Chronic) Chronic arthralgias of knees and hips (Acute) Primary osteoarthritis of left knee (Acute) Steroid injection: 03/26/2019 Synvisc injection: 09/28/2018 Hypomagnesemia (Chronic) Morbidly obese (Acute) Medical History Chronic kidney disease 09/2021- stage 3 Cr-1.4 Essential hypertension GERD (gastroesophageal reflux disease) Hyperlipidemia Hypothyroidism Mild persistent asthma Obstructive sleep apnea syndrome No CPAP, unable to tolerate mask Type 2 diabetes mellitus Surgical History History of repair of left hip joint Family History Mother Essential hypertension Heart disease Hyperlipidemia Alcohol abuse Father , at 94 of [place] Essential hypertension Diabetes Heart disease Stroke Hyperlipidemia Alcohol abuse Sister Depression Substance abuse Sister No problems noted. Brother No problems noted. Brother No problems noted. Son Asthma Daughter Asthma Depression Daughter Asthma Depression Maternal Grandfather , at 81 Alcohol abuse Diabetes Asthma Stroke Essential hypertension Hyperlipidemia Heart disease Maternal Grandmother , at 83 of brain aneurysm Essential hypertension Heart disease Paternal Grandfather No problems noted. Paternal Grandmother No problems noted. Social History Smoking/Tobacco Use Status: Never Smoking risk assessment performed?: Yes Alcohol Intake: never Drug use: Never Substance use type: does not use Household members: other Details: 3 current occupation: [employer] Current gender identity: female What type of physical activity do you participate in: walking Frequency: daily Seatbelt use: always Do you feel safe at home: Yes Do you feel safe in your relationship?: Yes Exam Narrative Exam Narrative: GEN: awake, alert, oriented 3. Pleasant, well groomed, interactive. HEAD: Normocephalic, atraumatic EYES: PERRL, EOMI NECK: Full ROM, no MAHSA, no menigismus CHEST/RESP: No respiratory distress EXT: Full ROM, pulm showed wound on dorsal left thumb or overlying IP joint. Normal range of motion, normal capillary refill Neuro: Grossly normal neurologic exam, conversant, interactive. Psych: Speech fluent, thoughts congruent, affect normal Course Vital Signs Vital signs: Vital Signs Temperature 36.9 C 12/02/21 13:02 Pulse 98 H 12/02/21 13:02 Respiratory Rate 18 12/02/21 13:02 Blood Pressure 141/81 H 12/02/21 13:02 Pulse Oximetry 97 12/02/21 13:02 Temperature 36.9 C 12/02/21 13:02 Temperature Source Temporal Artery Scan 12/02/21 13:02 Pulse 98 H 12/02/21 13:02 Respiratory Rate 18 12/02/21 13:02 Respiratory Effort Non-Labored 12/02/21 13:06 Blood Pressure 141/81 H 12/02/21 13:02 Blood Pressure Position Sitting 12/02/21 13:02 Pulse Oximetry 97 12/02/21 13:02 Oxygen Delivery Method Room Air 12/02/21 13:02 Oxygen Flow Rate 0 12/02/21 13:02 Pain Level 1 12/02/21 13:02
[2021-12-02] MEDS: Tetanus & Diphtheria Tox,ADULT 0.5 ML VIAL IM (13:42)
[2021-12-02] MEDS: Amox. 875/Clav. 125, 2 TABS/BTL 1 TAB PO (13:43)
--- NOTE | 2021-12-02 14:16 | NUR.NOTE ---
Spoke to the Health Officer in [facility], faxed report to [phone].Nursing Note:
== END 2021-12-02 13:43 | disposition home or self-care (01) ==
PROVIDERS: Emergency Provider Emergency Medicine; PCP Nurse Practitioner Family
DX: S61.052A Open bite of left thumb without damage to nail, initial encounter (principal); I12.9 Hypertensive chronic kidney disease with stage 1 through stage 4 chronic kidney disease, or unspecified chronic kidney disease; E11.22 Type 2 diabetes mellitus with diabetic chronic kidney disease; N18.30 Chronic kidney disease, stage 3 unspecified; J45.909 Unspecified asthma, uncomplicated; Z79.51 Long term (current) use of inhaled steroids; Z79.4 Long term (current) use of insulin; Z79.84 Long term (current) use of oral hypoglycemic drugs; W54.0XXA Bitten by dog, initial encounter
CPT/HCPCS: 90471; 99283; 99284

== ENCOUNTER 2022-07-16 00:24 | Outpatient (CLI) | payer OTHER, SELFPAY ==
--- NOTE | 2022-07-16 | DI.US_ITS ---
Exam(s) US BREAST RT COMPLETE MG MAMMO DIAGNOSTIC BI EXAM: MAMMO DIAGNOSTIC BI and U/S breast RT limited CLINICAL HISTORY: Bilateral breast pain and pruritus around areola,n64.4, BASELINE. TECHNIQUE: Craniocaudal and mediolateral oblique Full Field Digital Mammography views with Computer Aided Diagnosis followed by Tomosynthesis and right breast ultrasound. COMPARISON: No priors for comparison. FINDINGS: Mammography/Tomosynthesis: Masses/Architectural Distortion: None seen. Microcalcifictions: No suspicious pleomorphic-type are seen. Skin Thickening/Nipple Retraction: None. Limited right breast US: Echotexture: Normal appearance of the glandular tissue. Shadowing: No suspicious foci. Cyst: None. Solid lesions: None seen. Ductal dilation: None. IMPRESSION: 1. No evidence of malignancy is noted. 2. Unless there is more urgent need, follow-up screening mammography is recommended, as per [place] guidelines. 3. The findings were discussed with the patient on the date of the examination. BI-RADS Category 1 - Negative Breast Density - Category B - Scattered areas of fibroglandular density Breast density Category C or D implies that the patient has dense breast tissue. Dense breast tissue can make it harder to find cancer on a mammogram. Dense breast tissue is also associated with an incr eased risk of breast cancer. This information about the result of the mammogram report was provided to the patient to raise their awareness. Use this report when you speak with the patient about their risks for breast cancer, which includes their family history. At that time, you may recommend additional screening tests (Ultrasoun d or MRI) as these tests may add significant information. A negative radiographic report should not delay biopsy if a dominant or clinically suspicious mass is present. Up to ten percent of cancers are not identified on mammography. A negative report may reinforce clinical impression. Adenosis and dense breasts may obscure an underlying neoplasm. False positive reports average 6 to 10%. Patient will receive a letter notifying them of these results.
== END 2022-07-16 00:44 ==
LOC: DI 00:24
PROVIDERS: PCP Nurse Practitioner Family; Visit Provider Nurse Practitioner Family
DX: N64.4 Mastodynia (principal)
CPT/HCPCS: 76642; 77062; 77066; G0279

== ENCOUNTER 2022-08-30 01:27 | Outpatient (CLI) | payer OTHER, SELFPAY ==
[2022-08-30 11:56] LABS: ALT 54 U/L (14-59); AST 26 U/L (15-37); Albumin 3.4 g/dL (3.4-5.0); Alkaline Phosphatase 72 U/L (46-116); Anion Gap 10.1 mmol/L (3-11); BUN 22 mg/dL (7-18); Bilirubin, Total 0.4 mg/dL (0.2-1.0); CO2 29.9 mmol/L (21.0-32.0); CREATININE 1.3 mg/dL (0.55-1.02); Calcium 8.7 mg/dL (8.5-10.1); Calculated LDL 90 mg/dL (<100); Chloride 97 mmol/L (98-107); Cholesterol 201 mg/dL (<200); Estimated GFR 49.79 (mL/min/1.73m2); Glucose 238 mg/dL (74-106); HDL Cholesterol 35 mg/dL (40-60); Potassium 3.1 mmol/L (3.5-5.1); Sodium 137 mmol/L (136-145); Total Protein 7.6 g/dL (6.4-8.2); Triglyceride 382 mg/dL (<150)
== END 2022-08-30 01:28 | disposition home or self-care (01) ==
PROVIDERS: PCP Nurse Practitioner Family; Visit Provider Nurse Practitioner Family
DX: I10 Essential (primary) hypertension (principal); E11.9 Type 2 diabetes mellitus without complications; E03.9 Hypothyroidism, unspecified; E83.42 Hypomagnesemia
CPT/HCPCS: 36415; 80053; 80061; 83735; 84443

== ENCOUNTER 2022-12-04 11:28 | Emergency (ER) | payer SELFPAY ==
[2022-12-04 11:31] VITALS: BP 166/105; PULSE 102; RESP 18; TEMP 36.7; O2SAT 96
--- NOTE | 2022-12-04 12:15 | W.ED.GENAD ---
Discharge Plan Disposition Patient Disposition: Home Discharge Details Clinical Impression: Otitis media, purulent, acute, with spontaneous rupture of TM Primary Care Provider: Malka Reis ED Provider: Mehrdad Tracey Home Meds and New Rx's Prescriptions: Continued fluticasone propionate [Flovent HFA] 110 mcg/actuation HFA aerosol inhaler 110 mcg Inhalation BID PRN (Reason: during allergy season) Qty: 12 4RF rosuvastatin 5 mg tablet 5 mg PO .COMPLEX Qty: 45 3RF Rx Instructions: 5 mg orally; one tab every other day spironolactone 50 mg tablet 50 mg PO DAILY Qty: 90 3RF hydrochlorothiazide 25 mg tablet 25 mg PO DAILY Qty: 90 3RF Hold Instructions: Low K and Mag Rx Instructions: Take 1 tablet once a day cyclobenzaprine 5 mg tablet 5 mg PO TID PRN (Reason: muscle spasm) Qty: 60 0RF Rx Instructions: Take 1 tablet by mouth three times a day as needed for back pain ipratropium-albuterol 0.5 mg-3 mg(2.5 mg base)/3 mL solution for nebulization 3 ml Inhalation QID PRN (Reason: shortness of breath or wheezing) Qty: 90 4RF omeprazole 20 mg capsule,delayed release(DR/EC) 20 mg PO DAILY Qty: 90 3RF (DME) pen needle, diabetic 31 gauge x 1/3 needle 1 ea Miscellaneous DAILY Qty: 100 4RF Rx Instructions: Use with insulin pen once a day lisinopril 20 mg tablet 20 mg PO DAILY Qty: 90 3RF (DME) blood sugar diagnostic Strip See Rx Instructions .ROUTE .MEDSUPPLY Qty: 200 3RF Rx Instructions: Check blood sugar twice a day triamcinolone acetonide 0.1 % cream 1 applic topical DAILY PRN (Reason: pruritus) Qty: 80 1RF polyethylene glycol 3350 [Miralax] 17 gram/dose powder 17 g PO DAILY Qty: 238 0RF Rx Instructions: 1 capful in gatorade every hour until BM is clear and watery ibuprofen [Advil] 200 mg tablet 200 mg PO QID PRN Patient Comments: takes 2, 3 or 4 as needed glucose [Dex4 Glucose Quick Dissolve] 4 gram tablet,chewable 16 g PO ONCE PRN (Reason: hypoglycemia) Qty: 60 4RF Rx Instructions: Chew 4 pills once for low blood sugar < 70, may repeat once after 15 minutes if no response fluticasone propionate [Allergy Relief (fluticasone)] 50 mcg/actuation spray,suspension 2 spray MIKEL DAILY PRN (Reason: allergy symptoms) Qty: 15.8 4RF Rx Instructions: administer into each nostril albuterol sulfate [Proventil HFA] 90 mcg/actuation HFA aerosol inhaler 2 puff Inhalation Q6H PRN (Reason: shortness of breath or wheezing) Qty: 54 4RF (DME) 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 meter [[employer] Ultra2 Meter] 1 EACH kit 1 ea Miscellaneous DAILY Qty: 1 0RF cetirizine [Zyrtec] 10 mg tablet 10 mg PO DAILY PRN (Reason: allergy symptoms) Qty: 90 3RF (DME) lancets [[employer] Delica Plus Lancet] 30 gauge misc See Rx Instructions .Route Qty: 200 3RF Rx Instructions: Check blood sugar twice a day Victoza 3-Virgil 0.6 mg/0.1 mL (18 mg/3 mL) pen injector 1.8 mg subcut DAILY Qty: 9 4RF Rx Instructions: Inject 1.8mg daily glipizide 10 mg tablet 10 mg PO BID Qty: 180 3RF diclofenac sodium 50 mg tablet,delayed release (DR/EC) 50 mg PO Q12H PRN (Reason: pain) Qty: 90 2RF metformin 1,000 mg tablet 1,000 mg PO BID Qty: 180 3RF Rx Instructions: 1 tablet twice a day insulin glargine [Lantus Solostar U-100 Insulin] 100 unit/mL (3 mL) insulin pen 36 unit subcut DAILY Qty: 9 3RF levothyroxine 112 mcg tablet 112 mcg PO DAILY Qty: 90 3RF potassium chloride 20 mEq tablet extended release 20 meq PO DAILY Qty: 90 0RF magnesium oxide 500 mg tablet 500 mg PO BID Qty: 180 3RF No Action amoxicillin-pot clavulanate [Augmentin XR] 1,000-62.5 mg tablet extended release 12 hr 2 tab PO BID Qty: 40 0RF Rx Instructions: 2 tablets twice a day for 10 days ciprofloxacin-dexamethasone [Ciprodex] 0.3-0.1 % drops,suspension 4 drp otic (ear) BID Qty: 7.5 0RF Rx Instructions: 4 drops into right ear twice a day for 7 days amoxicillin-pot clavulanate 875-125 mg tablet 1 tab PO Q12H Qty: 14 0RF Rx Instructions: Take 1 tablet twice a day for 7 days Discharge Instructions Instructions: Ruptured Eardrum (ED) Additional Instructions: Continue to use [id number] pain medication such as ibuprofen 600 mg every 6 hours as needed for pain or acetaminophen no more than 3000 mg in a 24-hour period. Otherwise take antibiotics as prescribed and follow-up with your primary care provider for reassessment. Feel free to return the emergency department for any new or significant worsening of symptoms Referrals: Malka Reis NP [Primary Care Provider] - 5 days (If not improving) Discharge Data Discharge Date/Time-TO BE ENTERED AT DEPARTURE: 12/04/22 13:09 Medical Decision Making Patient presenting to the emergency department for chief complaint of right ear pain. Patient reports that she has had right ear discomfort for the past 3 days but this morning when waking up noted blood on her pillow and coming out of her ear. She also started having some left ear pain today. Patient denies any injury or trauma, fever chills, does state some nasal congestion but denies all other symptoms. Physical exam shows serous otitis of the left ear but right ear does show significant effusion, blood present in the ear canal but I do not see an obvious TM rupture but I do have suspicion of this. Exam is otherwise unremarkable. Patient placed on antibiotics otherwise will follow-up with primary care provider as needed for reassessment or return if needed. After discussion of diagnosis and plan of care patient has no further needs, questions, or concerns and states clear understanding to return to the emergency department for any worsening symptoms. This documentation was generated using [employer] dictation system, please disregard any oddities of phrase or misspellings. HPI General Mode of arrival: ambulatory. Date/Time Provider Initiated Documentation: 12/04/22 11:46. Limitations to Documentation: no limitations. Information obtained by: patient and RN notes reviewed. History of Present Illness 52 year old F presents to the emergency department with the chief complaint of Right ear pain bleeding, described as moderate, and is localized to the right (ear). Patient started experiencing this day(s) (3) and it has been constant. No relieving factors improve symptom(s), No exacerbating factors reported . Patient did receive the following treatments prior to arrival, none Related Data Home Medications Medication Instructions Recorded Confirmed 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 meter ([employer] ##1 10/17/17 12/06/22 Ultra2 Meter kit) ibuprofen 200 mg tablet (Advil) 200 mg PO QID PRN 10/12/18 12/06/22 glucose 4 gram chewable tablet 16 g PO ONCE PRN hypoglycemia #60 10/03/20 12/06/22 (Dex4 Glucose Quick Dissolve) tabs fluticasone propionate 50 2 spray intranasal DAILY PRN 12/25/21 12/06/22 mcg/actuation nasal allergy symptoms #15.8 grams spray,suspension (Allergy Relief (fluticasone)) cetirizine 10 mg tablet (Zyrtec) 10 mg PO DAILY PRN allergy 01/12/22 12/06/22 symptoms #90 tabs blood sugar diagnostic #200 ea 04/21/22 12/06/22 ipratropium 0.5 mg-albuterol 3 mg 3 ml inhalation QID PRN shortness 04/21/22 12/06/22 (2.5 mg base)/3 mL nebulization of breath or wheezing #90 mL soln lisinopril 20 mg tablet 20 mg PO DAILY #90 tabs 04/21/22 12/06/22 omeprazole 20 mg capsule,delayed 20 mg PO DAILY #90 caps 04/21/22 12/06/22 release pen needle, diabetic 31 gauge x ##100 04/21/22 12/06/22/3 albuterol sulfate 90 mcg/actuation 2 puff inhalation Q6H PRN 04/26/22 12/06/22 aerosol inhaler (Proventil HFA) shortness of breath or wheezing #54 grams lancets 30 gauge ([employer] Delica #200 ea 04/27/22 12/06/22 Plus Lancet) liraglutide 0.6 mg/0.1 mL (18 mg/3 1.8 mg (0.3 mL) subcut DAILY #9 mL 06/16/22 12/06/22 mL) subcutaneous pen injector ([employer] 3-Virgil) triamcinolone acetonide 0.1 % 1 applic topical DAILY PRN 07/09/22 12/06/22 topical cream pruritus #80 grams glipizide 10 mg tablet 10 mg PO BID #180 tabs 07/22/22 12/06/22 cyclobenzaprine 5 mg tablet 5 mg PO TID PRN muscle spasm #60 08/04/22 12/06/22 tabs fluticasone propionate 110 110 mcg inhalation BID PRN during 08/04/22 12/06/22 mcg/actuation HFA aerosol inhaler allergy season #12 grams (Flovent HFA) hydrochlorothiazide 25 mg tablet 25 mg PO DAILY #90 tabs 08/04/22 12/06/22 rosuvastatin 5 mg tablet 5 mg PO .COMPLEX #45 tabs 08/04/22 12/06/22 spironolactone 50 mg tablet 50 mg PO DAILY #90 tabs 08/04/22 12/06/22 diclofenac sodium 50 mg 50 mg PO Q12H PRN pain #90 tabs 08/24/22 12/06/22 tablet,delayed release metformin 1,000 mg tablet 1,000 mg PO BID #180 tab-caps 08/26/22 12/06/22 insulin glargine 100 unit/mL (3 36 unit (0.36 mL) subcut DAILY #9 09/02/22 12/06/22 mL) subcutaneous pen (Lantus SYRGS Solostar U-100 Insulin) levothyroxine 112 mcg tablet 112 mcg PO DAILY #90 tabs 09/02/22 12/06/22 potassium chloride 20 mEq 20 meq PO DAILY #90 tabs 09/02/22 12/06/22 tablet,extended release magnesium oxide 500 mg tablet 500 mg PO BID #180 tabs 09/03/22 12/06/22 polyethylene glycol 3350 17 17 g PO DAILY #238 grams 11/05/22 12/06/22 gram/dose oral powder (Miralax) amoxicillin 875 mg-potassium 1 tab PO Q12H #14 tabs 12/06/22 clavulanate 125 mg tablet amoxicillin-potassium clavulanate 2 tab PO BID #40 tabs 12/06/22 12/06/22 1,000 mg-62.5 mg tablet,ext.rel 12hr (Augmentin XR) ciprofloxacin 0.3 %-dexamethasone 4 drp otic (ear) BID #7.5 mL 12/06/22 12/06/22 0.1 % ear drops,suspension (Ciprodex) Previous Rx's Medication Instructions Recorded 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 meter ([employer] ##1 10/17/17 Ultra2 Meter kit) glucose 4 gram chewable tablet 16 g PO ONCE PRN hypoglycemia #60 10/03/20 (Dex4 Glucose Quick Dissolve) tabs fluticasone propionate 50 2 spray intranasal DAILY PRN 12/25/21 mcg/actuation nasal allergy symptoms #15.8 grams spray,suspension (Allergy Relief (fluticasone)) cetirizine 10 mg tablet (Zyrtec) 10 mg PO DAILY PRN allergy 01/12/22 symptoms #90 tabs blood sugar diagnostic #200 ea 04/21/22 ipratropium 0.5 mg-albuterol 3 mg 3 ml inhalation QID PRN shortness 04/21/22 (2.5 mg base)/3 mL nebulization of breath or wheezing #90 mL soln lisinopril 20 mg tablet 20 mg PO DAILY #90 tabs 04/21/22 omeprazole 20 mg capsule,delayed 20 mg PO DAILY #90 caps 04/21/22 release pen needle, diabetic 31 gauge x ##100 04/21/22 1/3 albuterol sulfate 90 mcg/actuation 2 puff inhalation Q6H PRN 04/26/22 aerosol inhaler (Proventil HFA) shortness of breath or wheezing #54 grams lancets 30 gauge ([employer] Delica #200 ea 04/27/22 Plus Lancet) liraglutide 0.6 mg/0.1 mL (18 mg/3 1.8 mg (0.3 mL) subcut DAILY #9 mL 06/16/22 mL) subcutaneous pen injector ([employer] 3-Virgil) triamcinolone acetonide 0.1 % 1 applic topical DAILY PRN 07/09/22 topical cream pruritus #80 grams glipizide 10 mg tablet 10 mg PO BID #180 tabs 07/22/22 cyclobenzaprine 5 mg tablet 5 mg PO TID PRN muscle spasm #60 08/04/22 tabs fluticasone propionate 110 110 mcg inhalation BID PRN during 08/04/22 mcg/actuation HFA aerosol inhaler allergy season #12 grams (Flovent HFA) hydrochlorothiazide 25 mg tablet 25 mg PO DAILY #90 tabs 08/04/22 rosuvastatin 5 mg tablet 5 mg PO .COMPLEX #45 tabs 08/04/22 spironolactone 50 mg tablet 50 mg PO DAILY #90 tabs 08/04/22 diclofenac sodium 50 mg 50 mg PO Q12H PRN pain #90 tabs 08/24/22 tablet,delayed release metformin 1,000 mg tablet 1,000 mg PO BID #180 tab-caps 08/26/22 insulin glargine 100 unit/mL (3 36 unit (0.36 mL) subcut DAILY #9 09/02/22 mL) subcutaneous pen (Lantus SYRGS Solostar U-100 Insulin) levothyroxine 112 mcg tablet 112 mcg PO DAILY #90 tabs 09/02/22 potassium chloride 20 mEq 20 meq PO DAILY #90 tabs 09/02/22 tablet,extended release magnesium oxide 500 mg tablet 500 mg PO BID #180 tabs 09/03/22 polyethylene glycol 3350 17 17 g PO DAILY #238 grams 11/05/22 gram/dose oral powder (Miralax) amoxicillin 875 mg-potassium 1 tab PO Q12H #14 tabs 12/06/22 clavulanate 125 mg tablet amoxicillin-potassium clavulanate 2 tab PO BID #40 tabs 12/06/22 1,000 mg-62.5 mg tablet,ext.rel 12hr (Augmentin XR) ciprofloxacin 0.3 %-dexamethasone 4 drp otic (ear) BID #7.5 mL 12/06/22 0.1 % ear drops,suspension (Ciprodex) Allergies Allergy/AdvReac Type Severity Reaction Status Date / Time cigarette smoke Allergy Verified 12/06/22 11:40 mold Allergy Verified 12/06/22 11:40 General Stated Complaint: EarProblem SAMMY: 4 Review of Systems Constitutional Constitutional: Denies chills and Denies fever(s) ENT Ears, Nose, Mouth, and Throat: Reports as per HPI, Reports ear discharge, Reports otalgia, Reports nasal congestion and Denies sore throat Cardiovascular Cardiovascular: Denies chest pain and Denies dyspnea Respiratory Respiratory: Denies cough and Denies dyspnea Gastrointestinal Gastrointestinal: Denies nausea PFSH All Active Problems Right otitis externa (Acute) Right otitis media with spontaneous rupture of eardrum (Acute) Obstructive sleep apnea syndrome (Chronic) No CPAP, unable to tolerate mask CKD (chronic kidney disease) stage 3, GFR 30-59 ml/min (Chronic) Type 2 diabetes mellitus (Chronic ~02/2022) Hypothyroidism (Chronic) Essential hypertension (Chronic) Asthma (Chronic) Hyperlipidemia (Chronic) Severe obesity (BMI >= 40) (Chronic) 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) Followed by [facility] Patellofemoral arthritis of right knee (Chronic) Primary osteoarthritis of left knee (Chronic) Steroid injection: 03/26/2019 Synvisc injection: 09/28/2018 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 Brother No problems noted. Brother No problems noted. Son Asthma Daughter Asthma Depression Daughter Asthma Depression Maternal Grandfather , at 81 Alcohol abuse Diabetes Asthma Stroke Essential hypertension Hyperlipidemia Heart disease Maternal Grandmother , at 83 of brain aneurysm Essential hypertension Heart disease Paternal Grandfather No problems noted. Paternal Grandmother No problems noted. 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 Current gender identity: female What type of physical activity do you participate in: walking Frequency: daily Seatbelt use: always Do you feel safe at home: Yes Do you feel safe in your relationship?: Yes Exam Const General: cooperative, no acute distress and not ill appearing Orientation: alert, awake and oriented x3 HENMT Head: normal to inspection, normocephalic and atraumatic Ears: external ears normal, EAC abnormal otic discharge bloody on the right and TM abnormal wth effusion serous on the left and erythematous on the right Mouth: oral mucosae normal and moist mucous membranes Resp Effort & Inspection: normal respiratory effort, able to speak in complete sentences and no respiratory distress Auscultation: clear to auscultation bilaterally Cardio Rate: regular rate Rhythm: regular rhythm Heart Sounds: S1 normal and S2 normal Skin General skin exam: no rashes or lesions noted Neuro General: patient alert, patient awake, patient oriented x3, moves all extremities and no focal motor deficits Sensory Exam: no sensory deficits noted Course Vital Signs Vital signs: Vital Signs Temperature 36.7 C 12/04/22 11:31 Pulse 102 H 12/04/22 11:31 Respiratory Rate 18 12/04/22 11:31 Blood Pressure 166/105 H 12/04/22 11:31 Pulse Oximetry 96 12/04/22 11:31 Temperature 36.7 C 12/04/22 11:31 Temperature Source Skin 12/04/22 11:31 Pulse 102 H 12/04/22 11:31 Respiratory Rate 18 12/04/22 11:31 Respiratory Effort Normal 12/04/22 11:35 Blood Pressure 166/105 H 12/04/22 11:31 Blood Pressure Position Sitting 12/04/22 11:31 Pulse Oximetry 96 12/04/22 11:31 Oxygen Delivery Method Room Air 12/04/22 11:31 Oxygen Flow Rate 0 12/04/22 11:31 Pain Level 8 12/04/22 11:31
[2022-12-04] MEDS: Amoxicillin 875 MG TAB PO (13:07)
[2022-12-04] MEDS: Ibuprofen 600 MG TAB PO (13:07)
[2022-12-04 13:08] VITALS: BP 147/90; PULSE 95; RESP 18; TEMP 36.7; O2SAT 96
== END 2022-12-04 13:09 | disposition home or self-care (01) ==
PROVIDERS: Emergency Provider Nurse Practitioner Family; PCP Nurse Practitioner Family
DX: H65.01 Acute serous otitis media, right ear (principal); H72.91 Unspecified perforation of tympanic membrane, right ear; H66.92 Otitis media, unspecified, left ear; I12.9 Hypertensive chronic kidney disease with stage 1 through stage 4 chronic kidney disease, or unspecified chronic kidney disease; E11.22 Type 2 diabetes mellitus with diabetic chronic kidney disease; N18.30 Chronic kidney disease, stage 3 unspecified; Z79.4 Long term (current) use of insulin
CPT/HCPCS: 99282

== ENCOUNTER 2023-06-10 15:42 | Outpatient (REF) | payer OTHER, SELFPAY ==
[2023-06-11 11:16] LABS: Microalb ug/mg Crea 14.9 ug/mg Cr
== END 2023-06-10 15:43 | disposition home or self-care (01) ==
LOC: LBN 15:42
PROVIDERS: PCP Nurse Practitioner Family; Visit Provider Nurse Practitioner Family
DX: E11.9 Type 2 diabetes mellitus without complications (principal)
CPT/HCPCS: 82043; 82570

== ENCOUNTER 2023-07-01 01:58 | Outpatient (CLI) | payer OTHER, SELFPAY ==
[2023-07-01 12:27] LABS: ALT 25 U/L (14-59); AST 11 U/L (15-37); Albumin 3.2 g/dL (3.4-5.0); Alkaline Phosphatase 74 U/L (46-116); Anion Gap 10.2 mmol/L (3-11); BUN 21 mg/dL (7-18); Bilirubin, Total 0.3 mg/dL (0.2-1.0); CO2 24.8 mmol/L (21.0-32.0); CREATININE 1.1 mg/dL (0.55-1.02); Calcium 8.6 mg/dL (8.5-10.1); Chloride 102 mmol/L (98-107); Creatine Kinase 31 U/L (26-192); Estimated GFR 60.46 (mL/min/1.73m2); Glucose 275 mg/dL (74-106); Magnesium 1.2 mg/dL (1.8-2.4); Potassium 4.1 mmol/L (3.5-5.1); Sodium 137 mmol/L (136-145); TSH (W/Ref FT4) 2.37 uIU/mL (0.36-3.74); Total Protein 7.2 g/dL (6.4-8.2)
[2023-07-01 19:12] LABS: Hepatitis C Ab w Rflx HCV PCR Negative (Negative)
== END 2023-07-01 01:59 | disposition home or self-care (01) ==
LOC: LBO 02:01
PROVIDERS: PCP Nurse Practitioner Family; Visit Provider Nurse Practitioner Family
DX: E87.6 Hypokalemia; E66.01 Morbid (severe) obesity due to excess calories; E11.9 Type 2 diabetes mellitus without complications
CPT/HCPCS: 36415; 80053; 82550; 86803; 83735; 84443

== ENCOUNTER 2023-09-15 09:56 | Emergency (ER) | payer OTHER, SELFPAY ==
[2023-09-15 10:10] VITALS: BP 178/114; PULSE 98; RESP 16; TEMP 37; O2SAT 95
--- NOTE | 2023-09-15 10:25 | W.ED.GENAD ---
Discharge Plan Disposition Patient Disposition: Home Condition: Stable Discharge Details Clinical Impression: Neck muscle spasm Primary Care Provider: Malka Reis ED Provider: Sukhdeep Louie Home Meds and New Rx's Prescriptions: New methocarbamol 750 mg tablet 1,500 mg PO TID PRN (Reason: neck spasm) Qty: 30 0RF ketorolac 10 mg tablet 10 mg PO QID 5 Days Qty: 20 0RF Rx Instructions: maximum total duration of 5 days from all oral, intranasal, or parenteral formulations lidocaine 5 % adhesive patch,medicated 1 patch topical DAILY Qty: 15 0RF Rx Instructions: leave on most painful area for up to 12 hrs Continued glipizide 10 mg tablet extended release 24hr 20 mg PO DAILY Qty: 180 3RF Rx Instructions: 2 capsules daily metformin 500 mg tablet extended release 24 hr 2,000 mg PO DAILY Qty: 360 3RF Rx Instructions: 4 tabs daily lisinopril 40 mg tablet 40 mg PO DAILY Qty: 90 3RF albuterol sulfate [Proventil HFA] 90 mcg/actuation HFA aerosol inhaler 2 puff Inhalation Q6H PRN (Reason: shortness of breath or wheezing) Qty: 54 4RF (DME) blood sugar diagnostic Strip See Rx Instructions .ROUTE .MEDSUPPLY Qty: 200 3RF Rx Instructions: Check blood sugar twice a day cetirizine [Zyrtec] 10 mg tablet 10 mg PO DAILY PRN (Reason: allergy symptoms) Qty: 90 3RF cyclobenzaprine 5 mg tablet 5 mg PO TID PRN (Reason: muscle spasm) Qty: 60 0RF Patient Comments: took yesterday, did [id number] Rx Instructions: Take 1 tablet by mouth three times a day as needed for back pain fluticasone propionate [Allergy Relief (fluticasone)] 50 mcg/actuation spray,suspension 2 spray MIKEL DAILY PRN (Reason: allergy symptoms) Qty: 15.8 4RF Rx Instructions: administer into each nostril ipratropium-albuterol 0.5 mg-3 mg(2.5 mg base)/3 mL solution for nebulization 3 ml Inhalation QID PRN (Reason: shortness of breath or wheezing) Qty: 90 4RF (DME) lancets [OneTouch Delica Plus Lancet] 30 gauge misc See Rx Instructions .Route Qty: 200 3RF Rx Instructions: Check blood sugar twice a day spironolactone 50 mg tablet 50 mg PO DAILY Qty: 90 3RF triamcinolone acetonide 0.1 % cream 1 applic topical DAILY PRN (Reason: pruritus) Qty: 80 1RF Januvia 100 mg tablet 100 mg PO DAILY Qty: 90 3RF rosuvastatin 5 mg tablet 5 mg PO DAILY Qty: 90 3RF levothyroxine 112 mcg tablet 112 mcg PO DAILY Qty: 90 3RF omeprazole 20 mg capsule,delayed release(DR/EC) 20 mg PO DAILY PRN (Reason: heartburn) Qty: 90 3RF (DME) 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 meter [Thinglink Ultra2 Meter] 1 EACH kit 1 ea Miscellaneous DAILY Qty: 1 0RF fluticasone furoate 100 mcg/actuation blister with device 1 inh inhalation DAILY Qty: 30 3RF insulin glargine U-300 conc [Toujeo Max U-300 SoloStar] 300 unit/mL (3 mL) insulin pen 36 unit subcut DAILY Qty: 15 5RF magnesium L-lactate 84 mg tablet extended release 168 mg PO BID Qty: 360 3RF Hold Instructions: Pt Stopped/Never Started Patient Comments: unable to fill prescription. Held diclofenac sodium 50 mg tablet,delayed release (DR/EC) 50 mg PO Q12H Hold Instructions: Resume on 09/11/23. Do not take this with the prescribed Ketorlac, or any other NSAIDs like ibuprofen/aleve until finished with the Ketorlac Patient Comments: takes daily Discharge Instructions Instructions: Spasmodic Torticollis (ED) Additional Instructions: You were seen in the emergency department for your neck muscle spasms. We need to aggressively treat you with a few different medications consistently over the course of 4 to 5 days to start making a difference in your condition. A massage therapist appointment would likely help as well. Take 1000 mg of Tylenol every 6 hours, do not miss doses-do this for 4 to 5 days before trying to reduce the amount of Tylenol you are taking. Take the prescribed anti-inflammatory ketorolac 4 times per day for 5 days, once finished with this medication you can move to taking 1 Aleve every 12 hours. I have prescribed you a lidocaine patch to leave on the area of pain for 12 hours each day. Take the prescribed muscle relaxer methocarbamol for nonsedating muscle relaxation during the days, you can substitute your cyclobenzaprine in the evening once you are home for further muscle relaxation. Please return to the emergency department for signs of spinal cord or column emergency like inability to move your arms, spreading symmetrical numbness of the arms, severe increase in neck pain with inability to move the neck especially with fever. Visual changes, vertigo. Please follow-up with physical therapy visits or technical maintenance specialist visit for definitive management of your neck muscle spasms. Stand Alone Forms: Work Release Referrals: [facility] [Provider Group] [facility] [Provider Group] [facility] [Provider Group] Malka Reis NP [Primary Care Provider] - Discharge Data Discharge Date/Time-TO BE ENTERED AT DEPARTURE: 09/15/23 13:35 HPI General Date/Time Provider Initiated Documentation: 09/15/23 10:12. HPI Narrative: 53 year-old female presents to ED today by POV/ambulating with a chief complaint of R lateral neck pain with onset noted over days, denies trauma. Quality described as straining pain, pain with neck stretching, no radiation to numbness/tingling, visual changes, sore throat, dysphagia, swelling. Patient endorses a mild occipital headache. Severity is described as significant. Palliating factors include subtherapeutic Tylenol & ibuprofen PRN. Provoking factors include nothing specific. Events leading up to the incident/Associated Symptoms: Patient has history of lower back problems. Patient not anticoagulated. Related Data Home Medications Medication Instructions Recorded Confirmed 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 meter (Thinglink ##1 10/17/17 09/15/23 Ultra2 Meter kit) albuterol sulfate 90 mcg/actuation 2 puff inhalation Q6H PRN 06/10/23 09/15/23 aerosol inhaler (Proventil HFA) shortness of breath or wheezing #54 grams blood sugar diagnostic #200 ea 06/10/23 09/15/23 cetirizine 10 mg tablet (Zyrtec) 10 mg PO DAILY PRN allergy 06/10/23 09/15/23 symptoms #90 tabs cyclobenzaprine 5 mg tablet 5 mg PO TID PRN muscle spasm #60 06/10/23 09/15/23 tabs fluticasone propionate 50 2 spray intranasal DAILY PRN 06/10/23 09/15/23 mcg/actuation nasal allergy symptoms #15.8 grams spray,suspension (Allergy Relief (fluticasone)) glipizide 10 mg tablet, extended 20 mg (2 x 10 mg) PO DAILY #180 06/10/23 09/15/23 release 24 hr tabs ipratropium 0.5 mg-albuterol 3 mg 3 ml inhalation QID PRN shortness 06/10/23 09/15/23 (2.5 mg base)/3 mL nebulization of breath or wheezing #90 mL soln lancets 30 gauge (OneTouch Delica #200 ea 06/10/23 09/15/23 Plus Lancet) lisinopril 40 mg tablet 40 mg PO DAILY #90 tabs 06/10/23 09/15/23 metformin 500 mg tablet,extended 2,000 mg (4 x 500 mg) PO DAILY 06/10/23 09/15/23 release 24 hr #360 tabs spironolactone 50 mg tablet 50 mg PO DAILY #90 tabs 06/10/23 09/15/23 triamcinolone acetonide 0.1 % 1 applic topical DAILY PRN 06/10/23 09/15/23 topical cream pruritus #80 grams fluticasone furoate 100 1 inh inhalation DAILY #30 ea 06/13/23 09/15/23 mcg/actuation blister powder for inhalation omeprazole 20 mg capsule,delayed 20 mg PO DAILY PRN heartburn #90 07/08/23 09/15/23 release caps insulin glargine U-300 conc 300 36 unit (0.12 mL) subcut DAILY #15 08/05/23 09/15/23 unit/mL (3 mL) subcutaneous pen mL (Toujeo Max U-300 SoloStar) levothyroxine 112 mcg tablet 112 mcg PO DAILY #90 tabs 08/29/23 09/15/23 magnesium L-lactate 84 mg 168 mg (2 x 84 mg) PO BID #360 tabs 08/29/23 09/15/23 tablet,extended release rosuvastatin 5 mg tablet 5 mg PO DAILY #90 tabs 08/29/23 09/15/23 sitagliptin phosphate 100 mg 100 mg PO DAILY #90 tabs 08/29/23 09/15/23 tablet (Januvia) diclofenac sodium 50 mg 50 mg PO Q12H pain 09/15/23 09/15/23 tablet,delayed release ketorolac 10 mg tablet 10 mg PO QID 5 days #20 tabs 09/15/23 lidocaine 5 % topical patch 1 patch topical DAILY #15 ea 09/15/23 methocarbamol 750 mg tablet 1,500 mg (2 x 750 mg) PO TID PRN 09/15/23 neck spasm #30 tabs Previous Rx's Medication Instructions Recorded 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 meter (Thinglink ##1 10/17/17 Ultra2 Meter kit) albuterol sulfate 90 mcg/actuation 2 puff inhalation Q6H PRN 06/10/23 aerosol inhaler (Proventil HFA) shortness of breath or wheezing #54 grams blood sugar diagnostic #200 ea 06/10/23 cetirizine 10 mg tablet (Zyrtec) 10 mg PO DAILY PRN allergy 06/10/23 symptoms #90 tabs cyclobenzaprine 5 mg tablet 5 mg PO TID PRN muscle spasm #60 06/10/23 tabs fluticasone propionate 50 2 spray intranasal DAILY PRN 06/10/23 mcg/actuation nasal allergy symptoms #15.8 grams spray,suspension (Allergy Relief (fluticasone)) glipizide 10 mg tablet, extended 20 mg (2 x 10 mg) PO DAILY #180 06/10/23 release 24 hr tabs ipratropium 0.5 mg-albuterol 3 mg 3 ml inhalation QID PRN shortness 06/10/23 (2.5 mg base)/3 mL nebulization of breath or wheezing #90 mL soln lancets 30 gauge (QuantHouseTouch Delica #200 ea 06/10/23 Plus Lancet) lisinopril 40 mg tablet 40 mg PO DAILY #90 tabs 06/10/23 metformin 500 mg tablet,extended 2,000 mg (4 x 500 mg) PO DAILY 06/10/23 release 24 hr #360 tabs spironolactone 50 mg tablet 50 mg PO DAILY #90 tabs 06/10/23 triamcinolone acetonide 0.1 % 1 applic topical DAILY PRN 06/10/23 topical cream pruritus #80 grams fluticasone furoate 100 1 inh inhalation DAILY #30 ea 06/13/23 mcg/actuation blister powder for inhalation omeprazole 20 mg capsule,delayed 20 mg PO DAILY PRN heartburn #90 07/08/23 release caps insulin glargine U-300 conc 300 36 unit (0.12 mL) subcut DAILY #15 08/05/23 unit/mL (3 mL) subcutaneous pen mL (Toujeo Max U-300 SoloStar) levothyroxine 112 mcg tablet 112 mcg PO DAILY #90 tabs 08/29/23 magnesium L-lactate 84 mg 168 mg (2 x 84 mg) PO BID #360 tabs 08/29/23 tablet,extended release rosuvastatin 5 mg tablet 5 mg PO DAILY #90 tabs 08/29/23 sitagliptin phosphate 100 mg 100 mg PO DAILY #90 tabs 08/29/23 tablet (Januvia) ketorolac 10 mg tablet 10 mg PO QID 5 days #20 tabs 09/15/23 lidocaine 5 % topical patch 1 patch topical DAILY #15 ea 09/15/23 methocarbamol 750 mg tablet 1,500 mg (2 x 750 mg) PO TID PRN 09/15/23 neck spasm #30 tabs Allergies Allergy/AdvReac Type Severity Reaction Status Date / Time cigarette smoke Allergy unknown Verified 09/15/23 10:10 mold Allergy unknown Verified 09/15/23 10:10 simvastatin AdvReac Intermediate Myalgia Verified 09/15/23 10:10 semaglutide [From Ozempic] AdvReac Chest pain Verified 09/15/23 10:10 General Stated Complaint: Orthopedic SAMMY: 3 Review of Systems All systems reviewed & are unremarkable except as noted in HPI and below Exam Narrative Exam Narrative: GENERAL APPEARANCE: Well-nourished, non-toxic, awake and alert, atraumatic, no acute distress. SKIN: Warm, pink, dry, intact, without rashes/lesions/ulcerations. HEAD: Normocephalic, atraumatic, normal hair distribution for gender/age. EYES: Pupils PERRLA, EOMs intact without nystagmus, normal conjunctiva, no exudates on lids/lashes. ENT: Nares patent, no circumoral cyanosis, no facial swelling NECK: Supple, trachea midline, no midline vertebral crepitus/step-offs, TTP and muscle tension in R lateral musculature, no nuchal rigidity, no neck swelling LUNGS/CHEST: Non-labored respirations, normal A/P diameter, symmetrical expansion, no chest wall deformity HEART (CV/PV): No peripheral edema, no JVD. ABDOMEN: Soft, non-distended, no guarding. MSK: Normal ROM, no swelling/deformity to bilateral UEs or LEs, moving all extremities without weakness, no cyanosis, spine midline without tenderness, normal curvature. NEURO: Mental Status AAOx4 - alert to person, place, time, events No facial droop, no forehead involvement. Motor: No focal weakness - strength 5/5 in bilateral UEs and LEs, proximal and distal, symmetric. Sensory: sensation intact to light touch globally. Gait normal: patient ambulated without ataxia into ED room. PSYCH: euthymic, cooperative, pleasant, appropriate speech Course Vital Signs Vital signs: Vital Signs Temperature 37.0 C 09/15/23 10:10 Pulse 98 H 09/15/23 10:10 Respiratory Rate 16 09/15/23 10:10 Blood Pressure 178/114 H 09/15/23 10:10 Pulse Oximetry 95 09/15/23 10:10 Temperature 37.0 C 09/15/23 10:10 Temperature Source Temporal Artery Scan 09/15/23 10:10 Pulse 98 H 09/15/23 10:10 Respiratory Rate 16 09/15/23 10:10 Respiratory Effort Normal, Non-Labored 09/15/23 10:15 Blood Pressure 178/114 H 09/15/23 10:10 Blood Pressure Position Sitting 09/15/23 10:10 Pulse Oximetry 95 09/15/23 10:10 Oxygen Delivery Method Room Air 09/15/23 10:10 Oxygen Flow Rate 0 09/15/23 10:10 Pain Level 9 09/15/23 10:10 Medical Decision Making This dictation utilizes [id number] dictation software and may contain unedited grammatical errors. 53 y/o F presents to ED today with a chief complaint of R lateral neck pain, questions sleeping on it wrong, denies trauma, denies numbness/tingling, no neck swelling, sore throat, dysphagia, endorses mild occipital headache. Patients' medical history: sciatica, FLIP, asthma, HTN, obesity, osteoarthritis. Family and social history: noncontributory. Pertinent exam findings / vital signs include NECK: Supple, trachea midline, no midline vertebral crepitus/step-offs, TTP and muscle tension in R lateral musculature, no nuchal rigidity, no neck swelling. Differential / pathologies of concern include torticollis, muscle spasm, not vertebral fracture, not cord syndrome, no radicular symptoms. Diagnostic studies of: -none. Interventions of: -APAP, LidoDerm, Toradol, Robaxan. ED Course/Assessment/Plan: 53-year-old female presents with right lateral neck pain, question sleeping on it wrong has exam that has palpable muscle tension in the right lateral neck musculature without nuchal rigidity, no sore throat or swallowing difficulty, the patient likely has a neck muscle spasm and will respond to aggressive treatment with APAP/Toradol/muscle relaxation/Lidoderm patches, I recommend physical therapy visits, following up with pain clinic for spine care should she fail to improve, strict return criteria for any developing paresthesias, fevers. Findings not consistent with cervical radiculopathy, paralysis. Disposition of Neck Muscle Spasm. Patient verbalized understanding of the plan and return to ED criteria and engaged in shared decision making. Medical Records Medical records reviewed: Yes I reviewed the patient's medical records. Quality:SDOH Health Related Social Needs: No Data to Display PFSH All Active Problems (Updated 09/15/23 @ 10:42 by KRISS Perrin) Neck muscle spasm (Acute) Obstructive sleep apnea syndrome (Chronic) No CPAP, unable to tolerate mask CKD (chronic kidney disease) stage 3, GFR 30-59 ml/min (Chronic) Type 2 diabetes mellitus (Chronic) Hypothyroidism (Chronic) Essential hypertension (Chronic) Asthma (Chronic) Hyperlipidemia (Chronic) Severe obesity (BMI >= 40) (Chronic) 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) Followed by [facility] Patellofemoral arthritis of right knee (Chronic) Primary osteoarthritis of left knee (Chronic) Steroid injection: 03/26/2019 Synvisc injection: 09/28/2018 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 Accounts Manager Hypomagnesemia (Chronic) GERD (gastroesophageal reflux disease) (Chronic) Surgical History History of repair of left hip joint Family History Mother Essential hypertension Heart disease Hyperlipidemia Alcohol abuse Father , at 94 of HI Essential hypertension Diabetes Heart disease Stroke Hyperlipidemia Alcohol abuse Sister Depression Substance abuse Sister No problems noted. Brother No problems noted. Brother No problems noted. Son Asthma Daughter Asthma Depression Daughter Asthma Depression Maternal Grandfather , at 81 Alcohol abuse Diabetes Asthma Stroke Essential hypertension Hyperlipidemia Heart disease Maternal Grandmother , at 83 of brain aneurysm Essential hypertension Heart disease Paternal Grandfather No problems noted. Paternal Grandmother No problems noted. 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
[2023-09-15] MEDS: Methocarbamol 750 MG TAB 1500 MG PO (10:52)
[2023-09-15] MEDS: Ketorolac 10 MG TAB PO (10:53)
[2023-09-15] MEDS: Acetaminophen 500 MG TAB 1000 MG PO (10:53)
[2023-09-15] MEDS: Lidocaine 5% Patch 1 PATCH TP (10:53)
== END 2023-09-15 13:35 | disposition home or self-care (01) ==
LOC: ER 11:46
PROVIDERS: Emergency Provider Physician Assistant; PCP Nurse Practitioner Family
DX: M54.2 Cervicalgia; M62.838 Other muscle spasm
CPT/HCPCS: 99283

== ENCOUNTER 2024-03-31 10:54 | Outpatient (REF) | payer OTHER, SELFPAY ==
[2024-03-31 15:27] LABS: Abs Immature Grans 0.02 10^3/uL (0.0-0.06); Absolute Basophil Count 0.12 10^3/uL (0.0-0.2); Absolute Lymphocyte Count 3.45 10^3/uL (1.2-3.4); Absolute Monocyte Count 0.53 10^3/uL (0.1-0.8); Absolute Neutrophil Count 6.06 10^3/uL (1.2-6.7); Basophils % 1.1 %; Eosinophils % 2.9 %; HCT 43.1 % (36.0-46.0); HGB 14.4 g/dL (11.2-15.7); Immature Grans % 0.2 %; Lymphocytes % 32.9 %; MCH 30.1 pg (27.0-33.0); MCHC 33.4 % (32.0-36.0); MCV 90 fL (80-95); MPV 10.5 fL (8.0-11.0); Monocytes % 5.1 %; Neutrophils % 57.8 %; Platelet Count 381 10^3/uL (130-400); RBC 4.78 10^6/uL (3.93-5.22); RDW 12.1 % (11.7-14.6); RDW-SD 40.2 fL; WBC 10.48 10^3/uL (4.4-10.8)
[2024-03-31 15:41] LABS: ALT 31 U/L (14-59); AST 14 U/L (15-37); Albumin 3.7 g/dL (3.4-5.0); Alkaline Phosphatase 85 U/L (46-116); Anion Gap 10.4 mmol/L (3-11); BUN 23 mg/dL (7-18); Bilirubin, Total 0.33 mg/dL (0.2-1.0); CO2 28.6 mmol/L (21.0-32.0); CREATININE 1.3 mg/dL (0.55-1.02); Calcium 9.4 mg/dL (8.5-10.1); Chloride 99 mmol/L (98-107); Estimated GFR 49.48 (mL/min/1.73m2); Glucose 241 mg/dL (74-106); Magnesium 1.5 mg/dL (1.8-2.4); Potassium 4.3 mmol/L (3.5-5.1); Sodium 138 mmol/L (136-145); Total Protein 7.3 g/dL (6.4-8.2)
== END 2024-03-31 10:55 | disposition home or self-care (01) ==
LOC: LBN 10:54
PROVIDERS: PCP Nurse Practitioner Family; Visit Provider Nurse Practitioner Family
DX: N39.0 Urinary tract infection, site not specified (principal); R35.0 Frequency of micturition; R10.2 Pelvic and perineal pain
CPT/HCPCS: 80053; 83735; 85025; 87086

== ENCOUNTER 2024-04-01 09:28 | Emergency (ER) | payer OTHER, SELFPAY ==
[2024-04-01] VITALS (14 sets, daily range): BP systolic 133–195; BP diastolic 91–119; PULSE 83–96; RESP 14–27; TEMP 36.5–36.6; O2SAT 91–97
--- NOTE | 2024-04-01 09:45 | DI.CT_ITS ---
Exam(s) CT ABDOMEN PELVIS W EXAM: CT ABDOMEN PELVIS W CLINICAL HISTORY: Abdominal pain. TECHNIQUE: Imaging Protocol: Axial computed tomography images with coronal and sagittal reformatted images were created and reviewed CONTRAST MATERIAL: Intravenous: Omnipaque-350 100cc Oral: None COMPARISON: CT CT ABDOMEN PELVIS W from 10/21/[address] CHEST PE CTA from 07/06/2020 FINDINGS: VISUALIZED LUNG BASES: No nodules nor pleural effusions evident. ABDOMEN: There is no ascites. LIVER: Liver is somewhat hypodense implying steatosis. There are no focal hepatic lesions evident. No dilated intrahepatic ducts. GALLBLADDER/BILIARY: Gallbladder wall is calcified such as porcelain gallbladder. No obvious calcifi ed gallstones. CBD is not dilated. PANCREAS: No evidence of pancreatic mass nor dilatation of the pancreatic duct. SPLEEN: Spleen is not enlarged. No obvious intrasplenic lesions. Splenic and portal veins are paten t. ADRENALS: There are no significant adrenal masses. KIDNEYS:There is a benign cyst in the posterior cortex of the right kidney which measures 1.8 cm. Do es not require further imaging workup. No other significant focal renal findings. No solid renal ma sses. No calculi nor hydronephrosis.. ABDOMINAL AORTA: Abdominal aorta is not enlarged. LYMPH NODES:There is no retroperitoneal nor paraaortic adenopathy. ABDOMINAL WALL: No evidence of significant anterior abdominal wall nor inguinal hernia. GI: There is no evidence of bowel obstruction, free air, nor abscess. PELVIS: GI: No evidence of appendicitis.Sigmoid diverticuli without evidence of diverticulitis. LYMPH NODES: There is no intrapelvic nor inguinal adenopathy. REPRODUCTIVE: There is a IUD which is in the lower uterine segment and endocervical canal, similar to the 2019 study. No other uterine findings. No abnormal adnexal masses. No free fluid. 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 N o fractures evident IMPRESSION: 1. The gallbladder wall is calcified. Recommend further study of the gallbladder starting with ultra sound to rule out gallbladder malignancy. The CBD is not dilated. 2. Malposition IUD which is again noted in the lower uterine segment and endocervical canal. This, h owever, is unchanged from CT scan of 2019. RADIATION DOSE DELIVERED: 1,259.69mGy.cm Total DLP DATA REPOSITORY: All CT scans at this facility are submitted to the National Radiology Data Registry (NRDR) Dose Index Registry (DIR) with the [employer] (A[employer]). RADIATION OPTIMIZATION: All CT scans at this facility use at least one of these dose optimization te chniques: automated exposure control; mA and/or kV adjustment per patient size (includes targeted exa ms where dose is matched to clinical indication); or iterative reconstruction.
--- NOTE | 2024-04-01 09:52 | W.ED.GENAD ---
Discharge Plan Disposition Patient Disposition: Home Condition: Stable Discharge Details Clinical Impression: IUD mechanical complication, Calcification of gallbladder Primary Care Provider: Malka Reis ED Provider: Jo Rodarte Home Meds and New Rx's Prescriptions: Continued albuterol sulfate [Proventil HFA] 90 mcg/actuation HFA aerosol inhaler 2 puff Inhalation Q6H PRN (Reason: shortness of breath or wheezing) Qty: 54 4RF cetirizine [Zyrtec] 10 mg tablet 10 mg PO DAILY PRN (Reason: allergy symptoms) Qty: 90 3RF fluticasone propionate [Allergy Relief (fluticasone)] 50 mcg/actuation spray,suspension 2 spray MIKEL DAILY PRN (Reason: allergy symptoms) Qty: 15.8 4RF Rx Instructions: administer into each nostril ipratropium-albuterol 0.5 mg-3 mg(2.5 mg base)/3 mL solution for nebulization 3 ml Inhalation QID PRN (Reason: shortness of breath or wheezing) Qty: 90 4RF (DME) lancets [OneTouch Delica Plus Lancet] 30 gauge misc See Rx Instructions .Route Qty: 200 3RF Rx Instructions: Check blood sugar twice a day spironolactone 50 mg tablet 50 mg PO DAILY Qty: 90 3RF Januvia 100 mg tablet 100 mg PO DAILY Qty: 90 3RF rosuvastatin 5 mg tablet 5 mg PO DAILY Qty: 90 3RF levothyroxine 112 mcg tablet 112 mcg PO DAILY Qty: 90 3RF cyclobenzaprine 5 mg tablet 5 mg PO TID PRN (Reason: muscle spasm) Qty: 60 0RF Patient Comments: uses rarely Rx Instructions: Take 1 tablet by mouth three times a day as needed for back pain omeprazole 20 mg capsule,delayed release(DR/EC) 20 mg PO DAILY PRN (Reason: heartburn) Qty: 90 3RF glipizide 10 mg tablet 10 mg PO BID Qty: 180 3RF metformin 1,000 mg tablet 1,000 mg PO BID Qty: 180 3RF (DME) OneTouch Ultra Test Strip See Rx Instructions .ROUTE .MEDSUPPLY Qty: 200 3RF Rx Instructions: Check blood sugar twice a day (DME) pen needle, diabetic [BD Ultra-Fine Short Pen Needle] 31 gauge x 5/16 needle See Rx Instructions .ROUTE .MEDSUPPLY Qty: 100 3RF Rx Instructions: Use with pen daily liraglutide [Victoza 3-Virgil] 0.6 mg/0.1 mL (18 mg/3 mL) pen injector 1.8 mg subcut DAILY Qty: 9 3RF insulin glargine U-300 conc [Toujeo Max U-300 SoloStar] 300 unit/mL (3 mL) insulin pen 48 unit subcut DAILY Qty: 15 5RF hydrochlorothiazide 25 mg tablet 25 mg PO DAILY Qty: 90 3RF insulin aspart U-100 100 unit/mL (3 mL) insulin pen 6 unit subcut .With dinner Qty: 15 3RF (DME) 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 meter [99inn[employer]ccuch Ultra2 Meter] 1 EACH kit 1 ea Miscellaneous DAILY Qty: 1 0RF fluticasone furoate 100 mcg/actuation blister with device 1 inh inhalation DAILY Qty: 30 3RF magnesium L-lactate 84 mg tablet extended release 168 mg PO BID Qty: 360 3RF Patient Comments: takes rarely due to sleepyness triamcinolone acetonide 0.1 % cream See Rx Instructions .ROUTE .COMPLEX Qty: 80 1RF Dose Instruction: APPLY 1 APPLICATION TOPICALLY ONCE DAILY NEEDED FOR PRURITUS Rx Instructions: APPLY 1 APPLICATION TOPICALLY ONCE DAILY NEEDED FOR PRURITUS diclofenac sodium 50 mg tablet,delayed release (DR/EC) 50 mg PO Q12H Qty: 90 2RF Patient Comments: takes daily Discharge Instructions Instructions: Gallbladder Diet Additional Instructions: At this time the CT shows some calcification of your gallbladder which could be an indication for a problem with your gallbladder. An outpatient ultrasound was ordered for you please schedule that within the next week. Also your IUD does not seem to be in the right place. I did offer removal of the IUD which she declined at this time I do recommend that you follow-up with your PCP to get that removed. Please follow-up with PCP regarding your gallbladder and/or surgery to discuss the neck steps after the ultrasound. Follow up with primary care provider in 1-2 days as previously scheduled. Return to ED sooner if any worsening or concerns. Also today your blood pressure was high and your blood sugar is over 300. Please discuss this with your PCP. Referrals: Adjovu,Malka, GIS GEOGRAPHER [Primary Care Provider] - 1 day Discharge Data Discharge Date/Time-TO BE ENTERED AT DEPARTURE: 04/01/24 12:20 HPI General Mode of arrival: ambulatory. Date/Time Provider Initiated Documentation: 04/01/24 09:38. Limitations to Documentation: no limitations. Information obtained by: patient, RN notes reviewed and old records reviewed. HPI Narrative: 53-year-old female presents to the ER with chief complaint of abdominal pain, urinary hesitancy, facial swelling and overall not feeling good for the last week. Patient was seen yesterday and had some labs drawn and was encouraged to restart her hydrochlorothiazide. She reports urinary hesitancy, right upper quadrant abdominal pain and left lower quadrant abdominal pain. Nausea. She reports constipation last week however she is having normal bowel movements this week. She also endorses shakiness. She does have a history of type 2 diabetes, CKD stage 3, obesity, hypothyroidism, high cholesterol, asthma hypertension. Related Data Home Medications ?Medication ?Instructions ?Recorded ?Confirmed 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 meter ([employer] ##1 10/17/17 04/01/24 Ultra2 Meter kit) albuterol sulfate 90 mcg/actuation 2 puff inhalation Q6H PRN 06/10/23 04/01/24 aerosol inhaler (Proventil HFA) shortness of breath or wheezing #54 grams cetirizine 10 mg tablet (Zyrtec) 10 mg PO DAILY PRN allergy 06/10/23 04/01/24 symptoms #90 tabs fluticasone propionate 50 2 spray intranasal DAILY PRN 06/10/23 04/01/24 mcg/actuation nasal allergy symptoms #15.8 grams spray,suspension (Allergy Relief (fluticasone)) ipratropium 0.5 mg-albuterol 3 mg 3 ml inhalation QID PRN shortness 06/10/23 04/01/24 (2.5 mg base)/3 mL nebulization of breath or wheezing #90 mL soln lancets 30 gauge ([employer] Ai #200 ea 06/10/23 04/01/24 Plus Lancet) spironolactone 50 mg tablet 50 mg PO DAILY #90 tabs 06/10/23 04/01/24 fluticasone furoate 100 1 inh inhalation DAILY #30 ea 06/13/23 04/01/24 mcg/actuation blister powder for inhalation omeprazole 20 mg capsule,delayed 20 mg PO DAILY PRN heartburn #90 07/08/23 04/01/24 release caps levothyroxine 112 mcg tablet 112 mcg PO DAILY #90 tabs 08/29/23 04/01/24 magnesium L-lactate 84 mg 168 mg (2 x 84 mg) PO BID #360 tabs 08/29/23 04/01/24 tablet,extended release rosuvastatin 5 mg tablet 5 mg PO DAILY #90 tabs 08/29/23 04/01/24 sitagliptin phosphate 100 mg 100 mg PO DAILY #90 tabs 08/29/23 04/01/24 tablet (Januvia) blood sugar diagnostic (OneTouch #200 ea 09/26/23 04/01/24 Ultra Test strips) glipizide 10 mg tablet 10 mg PO BID #180 tabs 09/26/23 04/01/24 metformin 1,000 mg tablet 1,000 mg PO BID #180 tabs 09/26/23 04/01/24 pen needle, diabetic 31 gauge x #100 ea 09/26/23 04/01/24 5/16 (BD Ultra-Fine Short Pen Needle) cyclobenzaprine 5 mg tablet 5 mg PO TID PRN muscle spasm #60 10/31/23 04/01/24 tabs diclofenac sodium 50 mg 50 mg PO Q12H pain #90 tabs 02/01/24 04/01/24 tablet,delayed release triamcinolone acetonide 0.1 % See Rx Instructions .Route 02/01/24 04/01/24 topical cream .COMPLEX #80 grams hydrochlorothiazide 25 mg tablet 25 mg PO DAILY #90 tabs 03/21/24 04/01/24 insulin aspart U-100 100 unit/mL 6 unit (0.06 mL) subcut .With 03/21/24 04/01/24 (3 mL) subcutaneous pen dinner #15 mL insulin glargine U-300 conc 300 48 unit (0.16 mL) subcut DAILY #15 03/21/24 04/01/24 unit/mL (3 mL) subcutaneous pen mL (Toujeo Max U-300 SoloStar) liraglutide 0.6 mg/0.1 mL (18 mg/3 1.8 mg (0.3 mL) subcut DAILY #9 mL 03/21/24 04/01/24 mL) subcutaneous pen injector (VarVeetoza 3-Virgil) Previous Rx's ?Medication ?Instructions ?Recorded 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 meter ([facility] ##1 10/17/17 Ultra2 Meter kit) albuterol sulfate 90 mcg/actuation 2 puff inhalation Q6H PRN 06/10/23 aerosol inhaler (Proventil HFA) shortness of breath or wheezing #54 grams cetirizine 10 mg tablet (Zyrtec) 10 mg PO DAILY PRN allergy 06/10/23 symptoms #90 tabs fluticasone propionate 50 2 spray intranasal DAILY PRN 06/10/23 mcg/actuation nasal allergy symptoms #15.8 grams spray,suspension (Allergy Relief (fluticasone)) ipratropium 0.5 mg-albuterol 3 mg 3 ml inhalation QID PRN shortness 06/10/23 (2.5 mg base)/3 mL nebulization of breath or wheezing #90 mL soln lancets 30 gauge ([facility] #200 ea 06/10/23 Plus Lancet) spironolactone 50 mg tablet 50 mg PO DAILY #90 tabs 06/10/23 fluticasone furoate 100 1 inh inhalation DAILY #30 ea 06/13/23 mcg/actuation blister powder for inhalation omeprazole 20 mg capsule,delayed 20 mg PO DAILY PRN heartburn #90 07/08/23 release caps levothyroxine 112 mcg tablet 112 mcg PO DAILY #90 tabs 08/29/23 magnesium L-lactate 84 mg 168 mg (2 x 84 mg) PO BID #360 tabs 08/29/23 tablet,extended release rosuvastatin 5 mg tablet 5 mg PO DAILY #90 tabs 08/29/23 sitagliptin phosphate 100 mg 100 mg PO DAILY #90 tabs 08/29/23 tablet (Januvia) [facility]/26/23 Ultra Test strips) glipizide 10 mg tablet 10 mg PO BID #180 tabs 09/26/23 metformin 1,000 mg tablet 1,000 mg PO BID #180 tabs 09/26/23 pen needle, diabetic 31 gauge x #100 ea 09/26/23/ (BD Ultra-Fine Short Pen Needle) cyclobenzaprine 5 mg tablet 5 mg PO TID PRN muscle spasm #60 10/31/23 tabs diclofenac sodium 50 mg 50 mg PO Q12H pain #90 tabs 02/01/24 tablet,delayed release triamcinolone acetonide 0.1 % See Rx Instructions .Route 02/01/24 topical cream .COMPLEX #80 grams hydrochlorothiazide 25 mg tablet 25 mg PO DAILY #90 tabs 03/21/24 insulin aspart U-100 100 unit/mL 6 unit (0.06 mL) subcut .With 03/21/24 (3 mL) subcutaneous pen dinner #15 mL insulin glargine U-300 conc 300 48 unit (0.16 mL) subcut DAILY #15 03/21/24 unit/mL (3 mL) subcutaneous pen mL (Toujeo Max U-300 SoloStar) liraglutide 0.6 mg/0.1 mL (18 mg/3 1.8 mg (0.3 mL) subcut DAILY #9 mL 03/21/24 mL) subcutaneous pen injector (Victoza 3-Virgil) Allergies Allergy/AdvReac Type Severity Reaction Status Date / Time cigarette smoke Allergy unknown Verified 04/01/24 09:37 mold Allergy unknown Verified 04/01/24 09:37 amlodipine AdvReac Intermediate Peripheral Verified 04/01/24 09:37 edema lisinopril AdvReac Intermediate Dry cough Verified 04/01/24 09:37 simvastatin AdvReac Intermediate Myalgia Verified 04/01/24 09:37 tirzepatide AdvReac Intermediate Significant Verified 04/01/24 09:37 abdominal pain semaglutide (From Ozempic) AdvReac Chest pain Verified 04/01/24 09:37 General Stated Complaint: GenMedical SAMMY: 3 Review of Systems All systems reviewed & are unremarkable except as noted in HPI and below Constitutional Constitutional: Reports as per HPI Gastrointestinal Gastrointestinal: Reports as per HPI, Reports abdominal pain and Reports nausea Endocrine Endocrine: Reports as per HPI Exam Narrative Exam Narrative: Constitutional: Alert and oriented x3. Appears stated age. Obese body habitus. Head: Normocephalic, no trauma. Eyes: Pupils PERRL, Red reflex noted, EOM's intact. Eyelids symmetrical without lesions, discharge, or swelling. ENT: Bilateral TM's WNL, External ear normal to inspection, no mastoid TTP, swelling, or erythema, Nasal turbinates WNL, no nasal discharge. Normal dentition, Posterior pharynx WNL, no exudate. Chest: RRR, Normal S1, S2, distal pulses intact. Resp: Lungs clear to auscultation bilaterally, no wheezes, rales, or rhonchi. Abdomen: Soft, non-distended, Normoactive bowel sounds all 4 quads. Tenderness with palpation right upper quadrant and left lower quadrant. Musculoskeletal: Normal gait, Moves all 4 extremities without difficulty. Skin: No suspicious rashes or lesions. Capillary refill less than 2 sec. Neurologic: Cranial nerves II-XII intact. Alert and oriented x 3. Motor: No deficits noted. Sensory: Intact bilaterally all 4 extremities. Hematologic/Lymphatic: No ecchymosis, no lymphadenopathy. Course Vital Signs Vital signs: Vital Signs Temperature 36.5 C 04/01/24 09:32 Pulse 96 H 04/01/24 09:32 Respiratory Rate 18 04/01/24 09:32 Blood Pressure 133/91 H 04/01/24 09:32 Pulse Oximetry 97 04/01/24 09:32 Temperature 36.5 C 04/01/24 09:32 Temperature Source Oral 04/01/24 09:32 Pulse 96 H 04/01/24 09:32 Respiratory Rate 18 04/01/24 09:32 Blood Pressure 133/91 H 04/01/24 09:32 Blood Pressure Position Sitting 04/01/24 09:32 Pulse Oximetry 97 04/01/24 09:32 Oxygen Delivery Method Room Air 04/01/24 09:32 Oxygen Flow Rate 0 04/01/24 09:32 Medical Decision Making Will repeat labs and urinalysis. Added on TSH with refractory T4 lipase CT abdomen pelvis. Differential diagnoses include but not limited to irritable bowel, cholecystitis, gastroenteritis, UTI. Spoke with Stanley loza who reports that the IUD is not in the right spot however this appears to be chronic. Also notes a calcified gallbladder wall which could be malignancy. Please see official report. Discussed CT results with patient who verbalized understanding. She does have a PCP appointment tomorrow and would rather wait to get her IUD out at a later time. I did offer IUD removal which patient declined at this time. I did discuss the gallbladder findings and concern for possible malignancy I will order an outpatient ultrasound so that patient can have that done. Did encourage her to keep her appointment tomorrow she verbalized understanding. I also did discuss her hypertension and her high blood sugar which patient states that her blood sugar is always high. At this time further care will be deferred to her PCP. This text was generated using [employer] system, please disregard any oddities of phrase or misspellings. Medical Records Medical records reviewed: Yes I reviewed the patient's medical records. Imaging Data Radiologic Study: Imaging: CT Scan Radiologist's impression: Kidneys and ureters: 2.2 cm simple cyst right kidney. . No follow-up imaging recommended . Subcentimeter low attenuation area in the left kidney is too small for characterization. Stomach and bowel: Diverticulosis of the rectosigmoid. No diverticulitis Appendix: No evidence of appendicitis. Intraperitoneal space: Unremarkable. No free air. No significant fluid collection. Vasculature: Unremarkable. No abdominal aortic aneurysm. Lymph nodes: Unremarkable. No enlarged lymph nodes. Urinary bladder: Unremarkable as visualized. Reproductive: IUD has migrated into the cervix. The arms of the IUD are extended at the junction between the uterus and cervix (series 8 image [id number] -[id number]). This has been present on multiple prior studies. Bones/joints: Unremarkable. No acute fracture. Soft tissues: Unremarkable. IMPRESSION: 1. The gallbladder wall is calcified. Recommend further evaluation to rule out gallbladder malignancy.. 2. IUD has migrated into the cervix. The arms of the IUD are extended at the junction between the uterus and cervix (series 8 image 74 -76). This has been present on multiple prior studies. Thank you for allowing us to participate in the care of your patient. Dictated and Authenticated by: Zach Burris MD Lab Data Lab results reviewed: Yes I reviewed the patient's lab results. Labs: Laboratory Tests Range/Units 04/01/24 04/01/24 10:05 10:16 WBC (4.4-10.8) 10^3/uL 10.58 RBC (3.93-5.22) 10^6/uL 4.86 Hgb (11.2-15.7) g/dL 14.6 Hct (36.0-46.0) % 44.2 MCV (80-95) fL 91 MCH (27.0-33.0) pg 30.0 MCHC (32.0-36.0) % 33.0 RDW (11.7-14.6) % 12.1 Plt Count (130-400) 10^3/uL 373 MPV (8.0-11.0) fL 9.8 Immature Gran % % 0.4 Neutrophils % % 67.3 Lymphocytes % % 23.3 Monocytes % % 5.2 Eosinophils % % 2.9 Basophils % % 0.9 Nucleated RBC % (0.0-0.3) % 0.0 Absolute Neutrophils (1.2-6.7) 10^3/uL 7.12 H Absolute Lymphocytes (1.2-3.4) 10^3/uL 2.46 Absolute Monocytes (0.1-0.8) 10^3/uL 0.55 Absolute Eosinophils (0.0-0.7) 10^3/uL 0.31 Absolute Basophils (0.0-0.2) 10^3/uL 0.10 Sodium (136-145) mmol/L 138 Potassium (3.5-5.1) mmol/L 4.5 Chloride (98-107) mmol/L 99 Carbon Dioxide (21.0-32.0) mmol/L 31.8 Anion Gap (3-11) mmol/L 7.2 BUN (7-18) mg/dL 21 H Creatinine (0.55-1.02) mg/dL 1.3 H Est GFR (CKD-EPI 2020) (mL/min/1.73m2) 49.48 Glucose (74-106) mg/dL 371 H Calcium (8.5-10.1) mg/dL 9.5 Total Bilirubin (0.2-1.0) mg/dL 0.42 AST (15-37) U/L 25 ALT (14-59) U/L 35 Alkaline Phosphatase (46-116) U/L 87 Total Protein (6.4-8.2) g/dL 8.0 Albumin (3.4-5.0) g/dL 3.6 Lipase (<78) U/L 60 TSH (0.36-3.74) uIU/mL 2.36 Urine Color (Yellow) Yellow Urine Clarity (Clear) Clear Urine pH (5-8) 6.0 Ur Specific [place] (1.005-1.025) 1.015 Urine Protein (Neg-Trace) mg/dL Negative Urine Ketones (Negative) mg/dL Negative Urine Blood (Negative) Negative Urine Nitrite (Negative) Negative Urine Bilirubin (Negative) Negative Urine Urobilinogen (Up to 0.2) mg/dL 0.2 Ur Leukocyte Esterase (Negative) Negative Urine RBC (0-2) HPF 0-2 Urine WBC (0-5) HPF 0-2 Ur Epithelial Cells (Negative) HPF Many Urine Crystals (Negative) HPF Negative Urine Bacteria (Negative) HPF Few Urine Casts (Negative) LPF Negative Urine Mucus (Negative) Negative Ur Culture Indicated? No/Sq. Contamination Urine Glucose (Negative) mg/dL >=1000 H Quality:SDOH Health Related Social Needs: No Data to Display PFSH All Active Problems (Updated 04/01/24 @ 11:53 by Jo Rodarte NP) Calcification of gallbladder (Acute) IUD mechanical complication (Acute) Obstructive sleep apnea syndrome (Chronic) No CPAP, unable to tolerate mask CKD (chronic kidney disease) stage 3, GFR 30-59 ml/min (Chronic) Type 2 diabetes mellitus (Chronic) Hypothyroidism (Chronic) Essential hypertension (Chronic) Asthma (Chronic) Hyperlipidemia (Chronic) Severe obesity (BMI >= 40) (Chronic) 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) Followed by [facility] Patellofemoral arthritis of right knee (Chronic) Primary osteoarthritis of left knee (Chronic) Steroid injection: 03/26/2019 Synvisc injection: 09/28/2018 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) IUD surveillance (Chronic 09/01/17) Inserted 09/01/17 at [facility] [place] Hypomagnesemia (Chronic) GERD (gastroesophageal reflux disease) (Chronic) Surgical History History of repair of left hip joint Family History Mother Essential hypertension Heart disease Hyperlipidemia Alcohol abuse Father , at 94 of [place] Essential hypertension Diabetes Heart disease Stroke Hyperlipidemia Alcohol abuse Sister Depression Substance abuse Sister No problems noted. Brother No problems noted. Brother No problems noted. Son Asthma Daughter Asthma Depression Daughter Asthma Depression Maternal Grandfather , at 81 Alcohol abuse Diabetes Asthma Stroke Essential hypertension Hyperlipidemia Heart disease Maternal Grandmother , at 83 of brain aneurysm Essential hypertension Heart disease Paternal Grandfather No problems noted. Paternal Grandmother No problems noted. 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
[2024-04-01 10:11] LABS: Bilirubin Negative (Negative); Blood Negative (Negative); Clarity Clear (Clear); Glucose >=1000 mg/dL (Negative); Ketones Negative (Negative); Leukocyte Esterase Negative (Negative); Nitrite Negative (Negative); Specific Gravity 1.015 (1.005-1.025); Urobilinogen 0.2 mg/dL (Up to 0.2)
[2024-04-01 10:19] LABS: Bacteria Few HPF (Negative); C & S Indicated? No/Sq. Contamination; Casts Negative LPF (Negative); Crystals Negative HPF (Negative); Epithelial Cells Many HPF (Negative); Mucus Negative (Negative); RBC 0-2 HPF (0-2); WBC 0-2 HPF (0-5)
[2024-04-01 10:23] LABS: Abs Immature Grans 0.04 10^3/uL (0.0-0.06); Absolute Eosinophil Count 0.31 10^3/uL (0.0-0.7); Absolute Lymphocyte Count 2.46 10^3/uL (1.2-3.4); Absolute Monocyte Count 0.55 10^3/uL (0.1-0.8); Absolute Neutrophil Count 7.12 10^3/uL (1.2-6.7); Basophils % 0.9 %; Eosinophils % 2.9 %; HCT 44.2 % (36.0-46.0); HGB 14.6 g/dL (11.2-15.7); Immature Grans % 0.4 %; Lymphocytes % 23.3 %; MCV 91 fL (80-95); MPV 9.8 fL (8.0-11.0); Monocytes % 5.2 %; Neutrophils % 67.3 %; Platelet Count 373 10^3/uL (130-400); RBC 4.86 10^6/uL (3.93-5.22); RDW 12.1 % (11.7-14.6); RDW-SD 40.2 fL; WBC 10.58 10^3/uL (4.4-10.8)
[2024-04-01 10:49] LABS: ALT 35 U/L (14-59); AST 25 U/L (15-37); Albumin 3.6 g/dL (3.4-5.0); Alkaline Phosphatase 87 U/L (46-116); Anion Gap 7.2 mmol/L (3-11); BUN 21 mg/dL (7-18); Bilirubin, Total 0.42 mg/dL (0.2-1.0); CO2 31.8 mmol/L (21.0-32.0); CREATININE 1.3 mg/dL (0.55-1.02); Chloride 99 mmol/L (98-107); Estimated GFR 49.48 (mL/min/1.73m2); Glucose 371 mg/dL (74-106); Lipase 60 U/L (<78); Potassium 4.5 mmol/L (3.5-5.1); Sodium 138 mmol/L (136-145); TSH (W/Ref FT4) 2.36 uIU/mL (0.36-3.74)
[2024-04-01 10:57] LABS: Calcium 9.5 mg/dL (8.5-10.1)
[2024-04-01] MEDS: Normal Saline - Diluent 50 ML VIAL IJ (11:08)
[2024-04-01] MEDS: Omnipaque 350 MG/ML 100 ML BTL IJ (11:09)
--- NOTE | 2024-04-01 11:33 | DI.VRAD_ITS ---
Addendum created by Zach Burris MD on 04/01/2024 11:33:38 AM EST: THIS REPORT CONTAINS FINDINGS THAT MAY BE CRITICAL TO PATIENT CARE. The findings were verbally communicated via telephone conference with RICKI ROSA at 11:33 AM EST on 04/01/2024. The findings were acknowledged and understood. Initial report created on 04/01/2024 11:32:34 AM EST: PROCEDURE INFORMATION: Exam: CT Abdomen And Pelvis With Contrast Exam date and time: 04/01/2024 11:09 AM Age: 53 years old Clinical indication: Other: Abdominal pain TECHNIQUE: Imaging protocol: Computed tomography of the abdomen and pelvis with contrast. Radiation optimization: All CT scans at this facility use at least one of these dose optimization techniques: automated exposure control; mA and/or kV adjustment per patient size (includes targeted exams where dose is matched to clinical indication); or iterative reconstruction. Contrast material: OMNIPAQUE 350; Contrast volume: 100 ml; Contrast route: INTRAVENOUS (IV); COMPARISON: CT ABDOMEN PELVIS W 10/21/2018 4:36 PM FINDINGS: Liver: Normal. No mass. Gallbladder and biliary ducts: The gallbladder wall is calcified. Recommend further evaluation to rule out gallbladder malignancy.. Pancreas: Normal. No ductal dilation. Spleen: Normal. No splenomegaly. Adrenal glands: Normal. No mass. Kidneys and ureters: 2.2 cm simple cyst right kidney. . No follow-up imaging recommended . Subcentimeter low attenuation area in the left kidney is too small for characterization. Stomach and bowel: Diverticulosis of the rectosigmoid. No diverticulitis Appendix: No evidence of appendicitis. Intraperitoneal space: Unremarkable. No free air. No significant fluid collection. Vasculature: Unremarkable. No abdominal aortic aneurysm. Lymph nodes: Unremarkable. No enlarged lymph nodes. Urinary bladder: Unremarkable as visualized. Reproductive: IUD has migrated into the cervix. The arms of the IUD are extended at the junction between the uterus and cervix (series 8 image 74 -76). This has been present on multiple prior studies. Bones/joints: Unremarkable. No acute fracture. Soft tissues: Unremarkable. IMPRESSION: 1. The gallbladder wall is calcified. Recommend further evaluation to rule out gallbladder malignancy.. 2. IUD has migrated into the cervix. The arms of the IUD are extended at the junction between the uterus and cervix (series 8 image 74 -76). This has been present on multiple prior studies. Dictated and Authenticated by: Zach Burris MD. Ordering:MICHAEL Osorio MD
--- NOTE | 2024-04-01 12:02 | NUR.NOTE ---
Faxed to [facility] request for gallbladder US for RUQ abd pain, procelain gallbladder. To be done 1 week or less, follow up with PCP/ER.. Patient given copy of form. Nursing Note:
== END 2024-04-01 12:20 | disposition home or self-care (01) ==
PROVIDERS: Emergency Provider Registered Nurse Emergency; PCP Nurse Practitioner Family
DX: T83.32XA Displacement of intrauterine contraceptive device, initial encounter (principal); K82.8 Other specified diseases of gallbladder; E11.22 Type 2 diabetes mellitus with diabetic chronic kidney disease; I12.9 Hypertensive chronic kidney disease with stage 1 through stage 4 chronic kidney disease, or unspecified chronic kidney disease; N18.30 Chronic kidney disease, stage 3 unspecified; Z79.84 Long term (current) use of oral hypoglycemic drugs; Z79.4 Long term (current) use of insulin
CPT/HCPCS: 80053; 81025; 83690; 99283; 74177; 81003; 81015; 84443; 85025; J3490

== ENCOUNTER 2024-05-08 11:45 | Outpatient (REF) | payer OTHER, SELFPAY ==
--- NOTE | 2024-05-08 11:30 | PAPFT_PTH ---
PATIENT: Irma Edwards V LOC: [facility] U#:[id number] AGE/SX: 53/F ROOM: RE05/08/[address]: Viviana Higginbotham : 1970 BED: DIS: 05/08/2024 SPEC #: [id number] RECD: 05/08/24 17:30 STATUS: JOAN RESharda #: [id number] GELACIO: 05/08/24 11:[address]: Viviana Higginbotham DEPT: [facility] Cytology RECD BY: Marisol Mak ENTERED: 05/08/24 17:30 SP TYPE: PAPFT OTHR DR: Malka Reis, RITESH Tissues: 1 - CX/ENDOCX FOR PAP SMEARS Procedures: PAP THIN PREP/UVM Screening HPV DNA PROBE Comments: [id number] (HPV 16 & 18/45)
== END 2024-05-08 11:46 | disposition home or self-care (01) ==
LOC: LBN 11:45
PROVIDERS: PCP Nurse Practitioner Family; Visit Provider Advanced Practice Midwife
DX: Z53.8 Procedure and treatment not carried out for other reasons (principal); Z97.5 Presence of (intrauterine) contraceptive device; N77.1 Vaginitis, vulvitis and vulvovaginitis in diseases classified elsewhere
CPT/HCPCS: 88142; 87624

== ENCOUNTER 2024-05-16 08:37 | Day surgery (SDC) | payer OTHER, SELFPAY ==
[2024-05-16 09:15] VITALS: BP 154/99; PULSE 91; RESP 20; TEMP 36.5; O2SAT 96
[2024-05-16] MEDS: Lactated Ringers 1,000 ML 80 ML IV (10:30)
--- NOTE | 2024-05-16 10:41 | W.ANESPRE ---
General Info Date of Service Date Performed: 05/16/24 Height: 5 ft 2 in Weight: 127 kg Body Mass Index (BMI): 51.2 Surgical Procedure: Operation Date: 05/16/24 10:25 Proposed Procedure Side Surgeon p Dilation & Curettage with Hysteroscopy Carolyn Allen MD s Removal of IUD Carolyn Allen MD Actual Procedure Side Surgeon p Dilation & Curettage with Hysteroscopy Carolyn Allen MD s Removal of IUD Carolyn Allen MD Pre-Op Diagnosis Post-Op Diagnosis Attempted IUD removal in office, unsuccessful Meds Allergies and Home Medications Allergies Allergy/AdvReac Type Severity Reaction Status Date / Time cigarette smoke Allergy unknown Verified 05/16/24 09:20 mold Allergy unknown Verified 05/16/24 09:20 amlodipine AdvReac Intermediate Peripheral Verified 05/16/24 09:20 edema lisinopril AdvReac Intermediate Dry cough Verified 05/16/24 09:20 simvastatin AdvReac Intermediate Myalgia Verified 05/16/24 09:20 tirzepatide AdvReac Intermediate Significant Verified 05/16/24 09:20 abdominal pain semaglutide (From Ozempic) AdvReac Chest pain Verified 05/16/24 09:20 Home Medication ?Medication ?Instructions ?Recorded 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 meter (e-volo ##1 10/17/17 Ultra2 Meter kit) albuterol sulfate 90 mcg/actuation 2 puff inhalation Q6H PRN 06/10/23 aerosol inhaler (Proventil HFA) shortness of breath or wheezing #54 grams cetirizine 10 mg tablet (Zyrtec) 10 mg PO DAILY PRN allergy 06/10/23 symptoms #90 tabs fluticasone propionate 50 2 spray intranasal DAILY PRN 06/10/23 mcg/actuation nasal allergy symptoms #15.8 grams spray,suspension (Allergy Relief (fluticasone)) ipratropium 0.5 mg-albuterol 3 mg 3 ml inhalation QID PRN shortness 06/10/23 (2.5 mg base)/3 mL nebulization of breath or wheezing #90 mL soln lancets 30 gauge (e-volo Delica #200 ea 06/10/23 Plus Lancet) spironolactone 50 mg tablet 50 mg PO DAILY #90 tabs 02/02/24 fluticasone furoate 100 1 inh inhalation DAILY #30 ea 06/13/23 mcg/actuation blister powder for inhalation omeprazole 20 mg capsule,delayed 20 mg PO DAILY PRN heartburn #90 07/08/23 release caps levothyroxine 112 mcg tablet 112 mcg PO DAILY #90 tabs 08/29/23 magnesium L-lactate 84 mg 168 mg (2 x 84 mg) PO BID #360 tabs 08/29/23 tablet,extended release rosuvastatin 5 mg tablet 5 mg PO DAILY #90 tabs 08/29/23 sitagliptin phosphate 100 mg 100 mg PO DAILY #90 tabs 08/29/23 tablet (Januvia) blood sugar diagnostic (OneTouch #200 ea 09/26/23 Ultra Test strips) glipizide 10 mg tablet 10 mg PO BID #180 tabs 09/26/23 metformin 1,000 mg tablet 1,000 mg PO BID #180 tabs 09/26/23 pen needle, diabetic 31 gauge x #100 ea 09/26/23/ (BD Ultra-Fine Short Pen Needle) cyclobenzaprine 5 mg tablet 5 mg PO TID PRN muscle spasm #60 10/31/23 tabs diclofenac sodium 50 mg 50 mg PO Q12H pain #90 tabs 02/01/24 tablet,delayed release triamcinolone acetonide 0.1 % See Rx Instructions .Route 02/01/24 topical cream .COMPLEX #80 grams hydrochlorothiazide 25 mg tablet 25 mg PO DAILY #90 tabs 03/21/24 insulin aspart U-100 100 unit/mL 6 unit (0.06 mL) subcut .With 03/21/24 (3 mL) subcutaneous pen dinner #15 mL liraglutide 0.6 mg/0.1 mL (18 mg/3 1.8 mg (0.3 mL) subcut DAILY #9 mL 03/21/24 mL) subcutaneous pen injector ([employer] Itza 3-Virgil) 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 meter,continuous #3 ea 05/07/24 (Dexcom G7 Painter Interior Finish) 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 sensor (Dexcom G7 #3 ea 05/07/24 Sensor device) losartan 100 mg tablet 100 mg PO DAILY #90 tabs 05/07/24 insulin glargine U-300 conc 300 48 unit subcut HS 05/14/24 unit/mL (3 mL) subcutaneous pen (Toujeo Max U-300 SoloStar) Current Visit Medications: Current Medications Generic Name Dose Route Start Last Admin Trade Name Freq PRN Reason Stop Dose Admin Ringer's Solution 1,000 mls @ 80 mls/hr 05/16/24 07:00 05/16/24 10:30 IV 06/15/24 06:59 80 mls/hr INFUSION DARRYL Administration IV Miscellaneous Supplies 1 each 05/16/24 06:00 Iv Access IV 05/16/24 23:59 DIRECTED DARRYL Sodium Chloride 0 ml 05/16/24 06:00 Normal Saline Flush 10 Ml Syr IV 05/16/24 23:59 PRN PRN Sodium Chloride 0 ml 05/16/24 06:00 Normal Saline 10 Ml Vial IJ 05/16/24 23:59 DIRECTED PRN Sterile Water 0 ml 05/16/24 06:00 Water,Injection,Sterile 10 Ml Vial IJ 05/16/24 23:59 DIRECTED PRN PFSH Active Problems Active Problems: Problem Status Onset Code Attempted IUD removal, unsuccessful Acute Z53.8, Z97.5 Type 2 diabetes mellitus with diabetic neuropathy Chronic E11.40 Obstructive sleep apnea syndrome Chronic G47.33 CKD (chronic kidney disease) stage 3, GFR 30-59 ml/min Chronic N18.30 Hypothyroidism Chronic E03.9 Essential hypertension Chronic I10 Asthma Chronic J45.909 Hyperlipidemia Chronic E78.5 Severe obesity (BMI >= 40) Chronic E66.01 Tear of medial meniscus of right knee Chronic ~2020 S83.241A Patellofemoral arthritis of right knee Chronic M17.11 Primary osteoarthritis of left knee Chronic M17.12 Chronic arthralgias of knees and hips Chronic M25.551, M25.552, M25.561, M25.562, G89.29 IUD surveillance Chronic 09/01/17 Z30.431 Hypomagnesemia Chronic E83.42 GERD (gastroesophageal reflux disease) Chronic K21.9 Medical History Medical History Hx of hyperlipidemia Hx of essential hypertension Hx of gastroesophageal reflux (GERD) History of hypothyroidism Hx of sleep apnea Surgical History Surgical History History of repair of left hip joint Tobacco Smoking/Tobacco Use Status: Never Passive smoking exposure: Yes Alcohol Alcohol Intake: never Substance Use Substance use: Never Substance use type: does not use Vital Signs and Lab Results Vital Signs Most Recent Vital Signs in EMR: Most Recent Vital Signs Temp Pulse Resp BP Pulse Ox 36.5 C 91 H 20 154/99 H 96 05/16/24 09:15 05/16/24 09:15 05/16/24 09:15 05/16/24 09:15 05/16/24 09:15 Point of Care Results Point of Care Results: POC- Test(urine) Negative 05/16/24 09:19 Finger Stick Blood Glucose 304 05/16/24 09:39 Lab Results Blood Type / Crossmatch: No Data to Display Complete Blood Count: No Data to Display Complete Metabolic Panel: No Data to Display Liver Function Panel: No Data to Display Coagulation Panel: No Data to Display Cardiac Panel: No Data to Display Arterial Blood Gas: No Data to Display Venous Blood Gas: No Data to Display Pancreas Panel: No Data to Display Thyroid Panel: No Data to Display Infectious Disease: No Data to Display Blood Cultures: No Data to Display Toxicology Panel: No Data to Display Panel: No Data to Display Imaging and Studies Imaging and Studies Study information below may be from another EMR and interpreted by another provider. Please see original notes in EMR for more complete details. EKG Summary: 07/06/20 Conclusion Sinus rhythm...normal P axis, V-rate 60- 99 Low voltage, precordial leads...precordial leads <1.0mV Anesthesia Assessment and Plan Anesthesia History Personal History: No History of Anesthesia Complications Family History: No Family History of Anesthesia Complications Exercise Tolerance Exercise Tolerance: Metabolic Equivalents<4 Pertinent Negatives Pertinent Negatives: No Symptoms of GERD, No Major Cardiovascular Symptoms or Complaints and No Major Pulmonary Symptoms or Complaints Cardiac & Pulmonary Exam Cardiac Exam: Normal S1/S2 Heart Sounds Pulmonary Exam: Clear Bilateral Breath Sounds Implantable Cardiac Device Does patient have a Pacemaker or an ICD?: No Airway Exam Known Difficult Airway: No Mallampati Class: 3 Mouth Opening: Normal (> 3cm) Thyromental Distance: Less than 3 cm Neck Range of Motion: Full ROM Neck Circumference: Thick Teeth Condition: Normal Dentition ASA Classification ASA Score: ASA 3 Emergency Case?: No NPO Status NPO Status: NPO Clears >2 hours, Solids >8 hours Status Status: Negative HCG Anesthesia Plan Resuscitation Status: Full Code Anesthesia Technique: MAC Anesthesia Airway Planned: Natural Airway Monitors Used: Standard Monitors Preoperative Comments:: Poor blood sugar control, agrees to minimal sedation.
[2024-05-16 10:43] VITALS: BMI 51.2
[2024-05-16] MEDS: Bupivacaine 0.25% Pres-Free W/EPI 30 ML VIAL (11:13)
[2024-05-16 11:47] VITALS: BP 150/99; PULSE 87; RESP 18; TEMP 36.2; O2SAT 92
--- NOTE | 2024-05-16 11:59 | W.PM.OP ---
Operative Note Operative Note PRE-OP DIAGNOSIS: Retained Mirena IUD POST-OP DIAGNOSIS: other (malfunctioning IUD) PROCEDURE: Hysteroscopy, removal of Mirena IUD SURGEON: Carolyn Allen Refer to Anesthesia Record ESTIMATED BLOOD LOSS: 5 COMPLICATIONS: None Patient was transported to: same day Patient's condition: stable Indications: Pt had incidental finding of her IUD being low in her uterus. Attempted removal in the office resulted in both strings breaking off and inability to grasp the rest of the IUD to remove it so pt opted for surgical removal in the OR with some sedation. Findings: IUD was within the cervix and the covering over the shaft broke off into 3 pieces as it was removed. Procedure Description: After informed consent was signed the patient was taken to the operating room and given monitored anesthesia care.? SCDs were placed on her legs.? She was prepped and draped in the dorsal lithotomy position in the [facility].? A time out was performed. Exam under anesthesia revealed normal external genitalia, vagina normal for age and a normal sized uterus. A speculum was placed into the vagina to reveal the cervix.? The anterior lip of the cervix was grasped with a single tooth tenaculum.? A paracervical block was given with 7ml of 0.25% marcaine with epinephrine.? The hysteroscope was inserted into the endometrial cavity and no abnormalities were seen within the uterine cavity. As the hysteroscope was pulled back the IUD was visualized within the cervix. A grasper was used to attempt to remove it but the plastic around the shaft broke off in 3 separate pieces followed by removal of the rest of the IUD. The tenaculum was removed from the cervix with good hemostasis.? The speculum was removed from the vagina. The patient tolerated the procedure well with only light sedation. The patient was placed back into the supine position.? She was moved to the stretcher and taken to the recovery room in stable condition. Date of Procedure: 05/16/24
[2024-05-16 12:16] VITALS: BP 139/88; PULSE 81; RESP 18; TEMP 36.2; O2SAT 92
--- NOTE | 2024-05-16 12:18 | W.PM.DSUDISC ---
Date of service: 05/16/24 Discharge Plan Disposition Patient Disposition: Home Condition: Good Discharge Details Attending Provider: Carolyn Allen Primary Care Provider: Malka Reis Home Meds and New Rx's Prescriptions: No Action albuterol sulfate [Proventil HFA] 90 mcg/actuation HFA aerosol inhaler 2 puff Inhalation Q6H PRN (Reason: shortness of breath or wheezing) Qty: 54 4RF cetirizine [Zyrtec] 10 mg tablet 10 mg PO DAILY PRN (Reason: allergy symptoms) Qty: 90 3RF fluticasone propionate [Allergy Relief (fluticasone)] 50 mcg/actuation spray,suspension 2 spray MIKEL DAILY PRN (Reason: allergy symptoms) Qty: 15.8 4RF Rx Instructions: administer into each nostril ipratropium-albuterol 0.5 mg-3 mg(2.5 mg base)/3 mL solution for nebulization 3 ml Inhalation QID PRN (Reason: shortness of breath or wheezing) Qty: 90 4RF (DME) lancets [OneTouch Delica Plus Lancet] 30 gauge misc See Rx Instructions .Route Qty: 200 3RF Rx Instructions: Check blood sugar twice a day spironolactone 50 mg tablet 50 mg PO DAILY Qty: 90 3RF Januvia 100 mg tablet 100 mg PO DAILY Qty: 90 3RF rosuvastatin 5 mg tablet 5 mg PO DAILY Qty: 90 3RF levothyroxine 112 mcg tablet 112 mcg PO DAILY Qty: 90 3RF cyclobenzaprine 5 mg tablet 5 mg PO TID PRN (Reason: muscle spasm) Qty: 60 0RF Patient Comments: uses rarely Rx Instructions: Take 1 tablet by mouth three times a day as needed for back pain omeprazole 20 mg capsule,delayed release(DR/EC) 20 mg PO DAILY PRN (Reason: heartburn) Qty: 90 3RF glipizide 10 mg tablet 10 mg PO BID Qty: 180 3RF metformin 1,000 mg tablet 1,000 mg PO BID Qty: 180 3RF (DME) OneTouch Ultra Test Strip See Rx Instructions .ROUTE .MEDSUPPLY Qty: 200 3RF Rx Instructions: Check blood sugar twice a day (DME) pen needle, diabetic [BD Ultra-Fine Short Pen Needle] 31 gauge x 5/16 needle See Rx Instructions .ROUTE .MEDSUPPLY Qty: 100 3RF Rx Instructions: Use with pen daily liraglutide [Victoza 3-Virgil] 0.6 mg/0.1 mL (18 mg/3 mL) pen injector 1.8 mg subcut DAILY Qty: 9 3RF hydrochlorothiazide 25 mg tablet 25 mg PO DAILY Qty: 90 3RF insulin aspart U-100 100 unit/mL (3 mL) insulin pen 6 unit subcut .With dinner Qty: 15 3RF (DME) Dexcom G7 Credit Rating Checker Misc See Rx Instructions .Route Qty: 3 3RF Rx Instructions: Continuous glucose monitor (DME) Dexcom G7 Sensor Device See Rx Instructions .Route Qty: 3 3RF Rx Instructions: Continuous glucose monitor losartan 100 mg tablet 100 mg PO DAILY Qty: 90 3RF (DME) 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 meter [[employer] Ultra2 Meter] 1 EACH kit 1 ea Miscellaneous DAILY Qty: 1 0RF fluticasone furoate 100 mcg/actuation blister with device 1 inh inhalation DAILY Qty: 30 3RF Patient Comments: pt. reports weeks magnesium L-lactate 84 mg tablet extended release 168 mg PO BID Qty: 360 3RF Patient Comments: takes rarely due to sleepyness triamcinolone acetonide 0.1 % cream See Rx Instructions .ROUTE .COMPLEX Qty: 80 1RF Dose Instruction: APPLY 1 APPLICATION TOPICALLY ONCE DAILY NEEDED FOR PRURITUS Rx Instructions: APPLY 1 APPLICATION TOPICALLY ONCE DAILY NEEDED FOR PRURITUS diclofenac sodium 50 mg tablet,delayed release (DR/EC) 50 mg PO Q12H Qty: 90 2RF Patient Comments: takes daily insulin glargine U-300 conc [Toujeo Max U-300 SoloStar] 300 unit/mL (3 mL) insulin pen 48 unit subcut HS Discharge Instructions Stand Alone Forms: Anesthesia Discharge Inst., Lindsey Dia (DSU) Activity:: Activity as Tolerated Diet:: As Tolerated Discharge Orders Discharge Orders: Discharge Order (Routine); Ordered 05/16/24 Ordered By: Carolyn Allen
--- NOTE | 2024-05-16 12:35 | W.ANESPOSTOP ---
Postoperative Evaluation Date, Time and Location Date Performed: 05/16/24 Time Performed: 12:16 Patient Location: Day Surgery Unit Vital Signs Most Recent Imported Vital Signs: Most Recent Vital Signs Temp Pulse Resp BP Pulse Ox 36.2 C L 81 18 139/88 92 05/16/24 12:16 05/16/24 12:16 05/16/24 12:16 05/16/24 12:16 05/16/24 12:16 Pain Score Most Recent Pain Score: Most Recent Pain Score Pain Level 3 05/16/24 12:16 Assessment Mental Status: Awake (Alert & Oriented to Patient Baseline) Airway and Respiratory Function: Patent airway with normal (patient baseline) respiratory exam Cardiovascular Function: Hemodynamically Stable Hydration Status: Adequately Hydrated Nausea & Vomiting: No Nausea or Vomiting Pain: Pain is tolerable per patient Peripheral Nerve Block: Patient did not receive a nerve block
[2024-05-16] MEDS: Normal Saline Flush 10 ML SYR IV (12:56)
[2024-05-16] MEDS: Ketorolac 30 MG/ML VIAL IVP (12:56)
== END 2024-05-16 13:44 | disposition home or self-care (01) ==
PROVIDERS: PCP Nurse Practitioner Family; Visit Provider Obstetrics & Gynecology
PROC: 0UDB8ZZ Extraction of Endometrium, Via Natural or Artificial Opening Endoscopic (ICD-10-PCS; CPT 58558; principal; 2024-05-16 10:15)
PROC: (CPT 58562; 2024-05-16 10:15)
DX: T83.32XA Displacement of intrauterine contraceptive device, initial encounter (principal); Z79.4 Long term (current) use of insulin; E11.22 Type 2 diabetes mellitus with diabetic chronic kidney disease; N18.30 Chronic kidney disease, stage 3 unspecified; E66.01 Morbid (severe) obesity due to excess calories; Z68.43 Body mass index [BMI] 50.0-59.9, adult
CPT/HCPCS: 58562; 81025; J1885; J2250

== ENCOUNTER 2024-05-22 10:57 | Emergency (ER) | payer OTHER, SELFPAY ==
[2024-05-22 11:16] VITALS: BP 181/100; PULSE 90; RESP 20; TEMP 36.5; O2SAT 98
--- NOTE | 2024-05-22 11:32 | W.ED.GENAD ---
Discharge Plan Disposition Patient Disposition: Home Discharge Details Clinical Impression: Acute diverticulitis Primary Care Provider: Malka Reis ED Provider: Germán Hickey [place] Meds and New Rx's Prescriptions: New amoxicillin-pot clavulanate 875-125 mg tablet 1 tab PO BID 7 Days Qty: 14 0RF Continued albuterol sulfate [Proventil HFA] 90 mcg/actuation HFA aerosol inhaler 2 puff Inhalation Q6H PRN (Reason: shortness of breath or wheezing) Qty: 54 4RF cetirizine [Zyrtec] 10 mg tablet 10 mg PO DAILY PRN (Reason: allergy symptoms) Qty: 90 3RF fluticasone propionate [Allergy Relief (fluticasone)] 50 mcg/actuation spray,suspension 2 spray MIKEL DAILY PRN (Reason: allergy symptoms) Qty: 15.8 4RF Rx Instructions: administer into each nostril ipratropium-albuterol 0.5 mg-3 mg(2.5 mg base)/3 mL solution for nebulization 3 ml Inhalation QID PRN (Reason: shortness of breath or wheezing) Qty: 90 4RF (DME) lancets [OneTouch Delica Plus Lancet] 30 gauge misc See Rx Instructions .Route Qty: 200 3RF Rx Instructions: Check blood sugar twice a day spironolactone 50 mg tablet 50 mg PO DAILY Qty: 90 3RF Januvia 100 mg tablet 100 mg PO DAILY Qty: 90 3RF rosuvastatin 5 mg tablet 5 mg PO DAILY Qty: 90 3RF levothyroxine 112 mcg tablet 112 mcg PO DAILY Qty: 90 3RF cyclobenzaprine 5 mg tablet 5 mg PO TID PRN (Reason: muscle spasm) Qty: 60 0RF Patient Comments: uses rarely Rx Instructions: Take 1 tablet by mouth three times a day as needed for back pain omeprazole 20 mg capsule,delayed release(DR/EC) 20 mg PO DAILY PRN (Reason: heartburn) Qty: 90 3RF glipizide 10 mg tablet 10 mg PO BID Qty: 180 3RF metformin 1,000 mg tablet 1,000 mg PO BID Qty: 180 3RF (DME) OneTouch Ultra Test Strip See Rx Instructions .ROUTE .MEDSUPPLY Qty: 200 3RF Rx Instructions: Check blood sugar twice a day (DME) pen needle, diabetic [BD Ultra-Fine Short Pen Needle] 31 gauge x 5/16 needle See Rx Instructions .ROUTE .MEDSUPPLY Qty: 100 3RF Rx Instructions: Use with pen daily liraglutide [Victoza 3-Virgil] 0.6 mg/0.1 mL (18 mg/3 mL) pen injector 1.8 mg subcut DAILY Qty: 9 3RF hydrochlorothiazide 25 mg tablet 25 mg PO DAILY Qty: 90 3RF insulin aspart U-100 100 unit/mL (3 mL) insulin pen 6 unit subcut .With dinner Qty: 15 3RF (DME) Dexcom G7 Financial Service Representative Misc See Rx Instructions .Route Qty: 3 3RF Rx Instructions: Continuous glucose monitor (DME) Dexcom G7 Sensor Device See Rx Instructions .Route Qty: 3 3RF Rx Instructions: Continuous glucose monitor losartan 100 mg tablet 100 mg PO DAILY Qty: 90 3RF (DME) 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 meter [MayomiTouch Ultra2 Meter] 1 EACH kit 1 ea Miscellaneous DAILY Qty: 1 0RF fluticasone furoate 100 mcg/actuation blister with device 1 inh inhalation DAILY Qty: 30 3RF Patient Comments: pt. reports weeks magnesium L-lactate 84 mg tablet extended release 168 mg PO BID Qty: 360 3RF Patient Comments: takes rarely due to sleepyness triamcinolone acetonide 0.1 % cream See Rx Instructions .ROUTE .COMPLEX Qty: 80 1RF Dose Instruction: APPLY 1 APPLICATION TOPICALLY ONCE DAILY NEEDED FOR PRURITUS Rx Instructions: APPLY 1 APPLICATION TOPICALLY ONCE DAILY NEEDED FOR PRURITUS diclofenac sodium 50 mg tablet,delayed release (DR/EC) 50 mg PO Q12H Qty: 90 2RF Patient Comments: takes daily insulin glargine U-300 conc [Toujeo Max U-300 SoloStar] 300 unit/mL (3 mL) insulin pen 48 unit subcut HS Discharge Instructions Additional Instructions: You are seen in the emergency department for abdominal pain. Your CAT scan shows that you have diverticulitis. Please take these antibiotics as directed. Please return to the emergency department if you develop worsening pain cannot eat or drink as result of nausea or vomiting or have any other concerns. Please see your primary care provider later this month as you will certainly benefit from a colonoscopy later this year. Discharge Data Discharge Date/Time-TO BE ENTERED AT DEPARTURE: 05/22/24 14:33 HPI General Date/Time Provider Initiated Documentation: 05/22/24 11:26. HPI Narrative: MDM This is an overall well-appearing normothermic and not tachycardic 53-year-old female with abdominal tenderness and recent IUD removal concerning for possible complication of IUD removal versus possible complication of IUD removal versus retained IUD. Patient underwent CT scan. CT scan notable for acute diverticulitis. Patient was tolerated p.o. and had no evidence of perforation nor abscess. She had not yet had a colonoscopy and I encouraged her to follow-up with her PCP to discuss colonoscopy. We also discussed that she should return to the ED if she developed fevers could not eat or drink or begin vomiting. Discharged her on amoxicillin clavulanic acid after giving him first dose in the ED. I considered sepsis however the patient was not tachycardic febrile nor hypotensive so I did not check a lactate nor order blood cultures. I considered ovarian torsion however in the absence of any sharp colicky pain and vomiting I felt that this was less likely so I did not feel that the patient required a transvaginal ultrasound. She had no pain or proportion to suggest necrotizing soft tissue infection. No erythema on her stomach to suggest cellulitis. No rash to suggest zoster. She did have some burning in her stomach which improved with urination. Given no dysuria nor frequency I did not obtain urinalysis as she was found to have diverticulitis and I felt that this was the explanation for her symptoms. HPI The patient presents for evaluation of severe cramping, headaches, and loss of appetite. She underwent a surgical procedure for the removal of her control device approximately 1 week ago. Since then, she has been experiencing severe cramping, particularly at night when she needs to urinate. The pain intensifies when she rolls onto her back, describing it as a burning sensation that radiates across her abdomen. This discomfort subsides after urination. The cramping is predominantly localized in the lower abdomen, with occasional exacerbation on the left side. She reports no abnormal vaginal discharge or bleeding, although she notes some discharge and non-red bleeding post-procedure. She is currently not sexually active and has no history of sexually transmitted infections. She has been in a monogamous relationship with her for the past 6 years. She reports no chest pain or respiratory distress. She also reports persistent headaches, which temporarily resolve with Tylenol but recur upon cessation of the medication. She experienced cold chills the previous night but has not had any fevers. She has not experienced any episodes of vomiting or nausea. Her bowel movements are regular, although she is uncertain about their normalcy. She has no history of abdominal surgeries. She has never had a colonoscopy. She describes a sensation richard to a water balloon in her stomach, accompanied by a burning sensation, which also resolves post-urination. She has been experiencing a loss of appetite. Exam General: Well-appearing in no acute distress speaking in complete sentences. Head: Normocephalic, atraumatic. Eye: Extraocular eye movements intact. No conjunctival injection. No scleral icterus. Ear, nose, mouth, throat: Grossly normal inspection. Normal voice, handling secretions normally. Neck: Trachea midline. Cardiovascular: Well-perfused distal extremities. Respiratory: Nonlabored respiration. Gastrointestinal: Nondistended abdomen. Mild bilateral lower quadrant tenderness. No rebound. No guarding. Musculoskeletal: No edema. Moving all 4 extremities spontaneously. Skin: Normal for age and race, grossly normal temperature and turgor. No acute rash. Neurologic: Alert and appropriate, no apparent acute deficits. Psychiatric: Mood and manner are appropriate. Grooming and personal hygiene are appropriate. Related Data Home Medications ?Medication ?Instructions ?Recorded ?Confirmed 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 meter (Veodin ##1 10/17/17 05/22/24 Ultra2 Meter kit) albuterol sulfate 90 mcg/actuation 2 puff inhalation Q6H PRN 06/10/23 05/22/24 aerosol inhaler (Proventil HFA) shortness of breath or wheezing #54 grams cetirizine 10 mg tablet (Zyrtec) 10 mg PO DAILY PRN allergy 06/10/23 05/22/24 symptoms #90 tabs fluticasone propionate 50 2 spray intranasal DAILY PRN 06/10/23 05/22/24 mcg/actuation nasal allergy symptoms #15.8 grams spray,suspension (Allergy Relief (fluticasone)) ipratropium 0.5 mg-albuterol 3 mg 3 ml inhalation QID PRN shortness 06/10/23 05/22/24 (2.5 mg base)/3 mL nebulization of breath or wheezing #90 mL soln lancets 30 gauge ([facility] 06/10/23 05/22/24 Plus Lancet) spironolactone 50 mg tablet 50 mg PO DAILY #90 tabs 06/10/23 05/22/24 fluticasone furoate 100 1 inh inhalation DAILY #30 ea 06/13/23 05/22/24 mcg/actuation blister powder for inhalation omeprazole 20 mg capsule,delayed 20 mg PO DAILY PRN heartburn #90 07/08/23 05/22/24 release caps levothyroxine 112 mcg tablet 112 mcg PO DAILY #90 tabs 08/29/23 05/22/24 magnesium L-lactate 84 mg 168 mg (2 x 84 mg) PO BID #360 tabs 08/29/23 05/22/24 tablet,extended release rosuvastatin 5 mg tablet 5 mg PO DAILY #90 tabs 08/29/23 05/22/24 sitagliptin phosphate 100 mg 100 mg PO DAILY #90 tabs 08/29/23 05/22/24 tablet (Januvia) blood sugar diagnostic ([facility] #200 ea 09/26/23 05/22/24 Ultra Test strips) glipizide 10 mg tablet 10 mg PO BID #180 tabs 09/26/23 05/22/24 metformin 1,000 mg tablet 1,000 mg PO BID #180 tabs 09/26/23 05/22/24 pen needle, diabetic 31 gauge x #100 ea 09/26/23 05/22/24 5/16 (BD Ultra-Fine Short Pen Needle) cyclobenzaprine 5 mg tablet 5 mg PO TID PRN muscle spasm #60 10/31/23 05/22/24 tabs diclofenac sodium 50 mg 50 mg PO Q12H pain #90 tabs 02/01/24 05/22/24 tablet,delayed release triamcinolone acetonide 0.1 % See Rx Instructions .Route 02/01/24 05/22/24 topical cream .COMPLEX #80 grams hydrochlorothiazide 25 mg tablet 25 mg PO DAILY #90 tabs 03/21/24 05/22/24 insulin aspart U-100 100 unit/mL 6 unit (0.06 mL) subcut .With 03/21/24 05/22/24 (3 mL) subcutaneous pen dinner #15 mL liraglutide 0.6 mg/0.1 mL (18 mg/3 1.8 mg (0.3 mL) subcut DAILY #9 mL 03/21/24 05/22/24 mL) subcutaneous pen injector (GeoVSza 3-Virgil) 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 meter,continuous #3 ea 05/07/24 05/22/24 (Dexcom G7 Financial Service Representative) 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 sensor (Dexcom G7 #3 ea 05/07/24 05/22/24 Sensor device) losartan 100 mg tablet 100 mg PO DAILY #90 tabs 05/07/24 05/22/24 insulin glargine U-300 conc 300 48 unit subcut HS 05/14/24 05/22/24 unit/mL (3 mL) subcutaneous pen (Toujeo Max U-300 SoloStar) amoxicillin 875 mg-potassium 1 tab PO BID 7 days #14 tabs 05/22/24 clavulanate 125 mg tablet Previous Rx's ?Medication ?Instructions ?Recorded 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 meter (Veodin ##1 10/17/17 Ultra2 Meter kit) albuterol sulfate 90 mcg/actuation 2 puff inhalation Q6H PRN 06/10/23 aerosol inhaler (Proventil HFA) shortness of breath or wheezing #54 grams cetirizine 10 mg tablet (Zyrtec) 10 mg PO DAILY PRN allergy 06/10/23 symptoms #90 tabs fluticasone propionate 50 2 spray intranasal DAILY PRN 06/10/23 mcg/actuation nasal allergy symptoms #15.8 grams spray,suspension (Allergy Relief (fluticasone)) ipratropium 0.5 mg-albuterol 3 mg 3 ml inhalation QID PRN shortness 06/10/23 (2.5 mg base)/3 mL nebulization of breath or wheezing #90 mL soln lancets 30 gauge (Veodin Delica #200 ea 06/10/23 Plus Lancet) spironolactone 50 mg tablet 50 mg PO DAILY #90 tabs 06/10/23 fluticasone furoate 100 1 inh inhalation DAILY #30 ea 06/13/23 mcg/actuation blister powder for inhalation omeprazole 20 mg capsule,delayed 20 mg PO DAILY PRN heartburn #90 07/08/23 release caps levothyroxine 112 mcg tablet 112 mcg PO DAILY #90 tabs 08/29/23 magnesium L-lactate 84 mg 168 mg (2 x 84 mg) PO BID #360 tabs 08/29/23 tablet,extended release rosuvastatin 5 mg tablet 5 mg PO DAILY #90 tabs 08/29/23 sitagliptin phosphate 100 mg 100 mg PO DAILY #90 tabs 08/29/23 tablet (Januvia) blood sugar diagnostic (OneTouch #200 ea 09/26/23 Ultra Test strips) glipizide 10 mg tablet 10 mg PO BID #180 tabs 09/26/23 metformin 1,000 mg tablet 1,000 mg PO BID #180 tabs 09/26/23 pen needle, diabetic 31 gauge x #100 ea 09/26/23/ (BD Ultra-Fine Short Pen Needle) cyclobenzaprine 5 mg tablet 5 mg PO TID PRN muscle spasm #60 10/31/23 tabs diclofenac sodium 50 mg 50 mg PO Q12H pain #90 tabs 02/01/24 tablet,delayed release triamcinolone acetonide 0.1 % See Rx Instructions .Route 02/01/24 topical cream .COMPLEX #80 grams hydrochlorothiazide 25 mg tablet 25 mg PO DAILY #90 tabs 03/21/24 insulin aspart U-100 100 unit/mL 6 unit (0.06 mL) subcut .With 03/21/24 (3 mL) subcutaneous pen dinner #15 mL liraglutide 0.6 mg/0.1 mL (18 mg/3 1.8 mg (0.3 mL) subcut DAILY #9 mL 03/21/24 mL) subcutaneous pen injector (Limonetik 3-Virgil) 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 meter,continuous #3 ea 05/07/24 (Dexcom G7 Financial Service Representative) 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 sensor (Dexcom G7 #3 ea 05/07/24 Sensor device) losartan 100 mg tablet 100 mg PO DAILY #90 tabs 05/07/24 amoxicillin 875 mg-potassium 1 tab PO BID 7 days #14 tabs 05/22/24 clavulanate 125 mg tablet Allergies Allergy/AdvReac Type Severity Reaction Status Date / Time cigarette smoke Allergy unknown Verified 05/16/24 09:20 mold Allergy unknown Verified 05/16/24 09:20 amlodipine AdvReac Intermediate Peripheral Verified 05/16/24 09:20 edema lisinopril AdvReac Intermediate Dry cough Verified 05/16/24 09:20 simvastatin AdvReac Intermediate Myalgia Verified 05/16/24 09:20 tirzepatide AdvReac Intermediate Significant Verified 05/16/24 09:20 abdominal pain semaglutide (From Ozempic) AdvReac Chest pain Verified 05/16/24 09:20 General 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: 3 Course Vital Signs Vital signs: Vital Signs Temperature 36.5 C 05/22/24 11:16 Pulse 90 05/22/24 11:16 Respiratory Rate 20 05/22/24 11:16 Blood Pressure 1801/10 H 05/22/24 11:16 Pulse Oximetry 98 05/22/24 11:16 Temperature 36.5 C 05/22/24 11:16 Temperature Source Oral 05/22/24 11:16 Pulse 90 05/22/24 11:16 Respiratory Rate 20 05/22/24 11:16 Blood Pressure 1801/10 H 05/22/24 11:16 Blood Pressure Position Sitting 05/22/24 11:16 Pulse Oximetry 98 05/22/24 11:16 Oxygen Delivery Method Room Air 05/22/24 11:16 Oxygen Flow Rate 0 05/22/24 11:16 Medical Decision Making Quality:SDOH Health Related Social Needs: No Data to Display PFSH All Active Problems (Updated 05/22/24 @ 13:20 by Germán Hickey MD) Acute diverticulitis (Acute) Attempted IUD removal, unsuccessful (Acute) Type 2 diabetes mellitus with diabetic neuropathy (Chronic) Obstructive sleep apnea syndrome (Chronic) No CPAP, unable to tolerate mask CKD (chronic kidney disease) stage 3, GFR 30-59 ml/min (Chronic) Hypothyroidism (Chronic) Essential hypertension (Chronic) Asthma (Chronic) Hyperlipidemia (Chronic) Severe obesity (BMI >= 40) (Chronic) 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) Followed by [facility] Patellofemoral arthritis of right knee (Chronic) Primary osteoarthritis of left knee (Chronic) Steroid injection: 03/26/2019 Synvisc injection: 09/28/2018 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) IUD surveillance (Chronic 09/01/17) Inserted 09/01/17 at [facility] [employer] Hypomagnesemia (Chronic) GERD (gastroesophageal reflux disease) (Chronic) Medical History (Updated 05/22/24 @ 13:20 by Germán Hickey MD) Hx of hyperlipidemia Hx of essential hypertension Hx of gastroesophageal reflux (GERD) History of hypothyroidism Hx of sleep apnea Surgical History History of repair of left hip joint Family History Mother Essential hypertension Heart disease Hyperlipidemia Alcohol abuse Father , at 94 of [place] Essential hypertension Diabetes Heart disease Stroke Hyperlipidemia Alcohol abuse Sister Depression Substance abuse Sister No problems noted. Brother No problems noted. Brother No problems noted. Son Asthma Daughter Asthma Depression Daughter Asthma Depression Maternal Grandfather , at 81 Alcohol abuse Diabetes Asthma Stroke Essential hypertension Hyperlipidemia Heart disease Maternal Grandmother , at 83 of brain aneurysm Essential hypertension Heart disease Paternal Grandfather No problems noted. Paternal Grandmother No problems noted. 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
--- NOTE | 2024-05-22 11:43 | DI.CT_ITS ---
Exam(s) CT ABDOMEN PELVIS W EXAM: CT ABDOMEN PELVIS W CLINICAL HISTORY: Lower abdominal pain status post IUD removal. TECHNIQUE: Imaging Protocol: Axial computed tomography images with coronal and sagittal reformatted images were created and reviewed CONTRAST MATERIAL: Intravenous: Omnipaque 350 Contrast volume:100 ml Oral: yes no COMPARISON: CT CT ABDOMEN PELVIS W from 04/01/2024 FINDINGS: ABDOMEN and PELVIS: Lung Bases: No acute findings. Liver: Hepatic steatosis. Liver enlarged at 20 cm in length.. No suspicious mass. Gallbladder and biliary tract: Calcification in in gallbladder wall again noted.. No wall thickening or pericholecystic fluid. No biliary dilation. Pancreas: Normal density. No abnormal calcifications or inflammatory process. No evidence of mass. Spleen: Normal. Kidneys: Normal size, contour and axis. No radiodense stones. No obstructive uropathy. Stable right renal cyst. No suspicious masses seen. Duplex left collecting system. Adrenal glands: No masses seen. Vasculature: Abdominal aorta non-dilated. Soft tissues: Unremarkable. Bladder: No gross wall thickening. No calculi.No focal mass. Bowel: No obstruction. Diverticulosis of the descending and sigmoid colon. Inflammatory changes at the mid sigmoid consistent with diverticulitis. No evidence of perforation or abscess. Appendix nor mal. Peritoneal cavity: No ascites. No focal collection. No free air. Bones: Unremarkable for age. Reproductive organs: Unremarkable. Lymph nodes: No pathologically enlarged lymph nodes. IMPRESSION:: Acute diverticulitis of the mid sigmoid. No evidence of perforation or abscess. RADIATION DOSE DELIVERED: 1,611.53mGy.cm Total DLP DATA REPOSITORY: All CT scans at this facility are submitted to the National Radiology Data Registry (NRDR) Dose Index Registry (DIR) with the [employer] (A[employer]). RADIATION OPTIMIZATION: All CT scans at this facility use at least one of these dose optimization te chniques: automated exposure control; mA and/or kV adjustment per patient size (includes targeted exa ms where dose is matched to clinical indication); or iterative reconstruction.
[2024-05-22 12:26] LABS: Abs Immature Grans 0.04 10^3/uL (0.0-0.06); Absolute Basophil Count 0.08 10^3/uL (0.0-0.2); Absolute Eosinophil Count 0.26 10^3/uL (0.0-0.7); Absolute Lymphocyte Count 2.39 10^3/uL (1.2-3.4); Absolute Monocyte Count 0.57 10^3/uL (0.1-0.8); Absolute Neutrophil Count 6.47 10^3/uL (1.2-6.7); Basophils % 0.8 %; Eosinophils % 2.7 %; HCT 43.4 % (36.0-46.0); HGB 14.5 g/dL (11.2-15.7); Immature Grans % 0.4 %; Lymphocytes % 24.4 %; MCH 30.1 pg (27.0-33.0); MCHC 33.4 % (32.0-36.0); MCV 90 fL (80-95); MPV 9.8 fL (8.0-11.0); Monocytes % 5.8 %; Neutrophils % 65.9 %; Platelet Count 354 10^3/uL (130-400); RBC 4.81 10^6/uL (3.93-5.22); RDW 12.8 % (11.7-14.6); RDW-SD 42.2 fL; WBC 9.81 10^3/uL (4.4-10.8)
[2024-05-22] MEDS: Normal Saline - Diluent 50 ML VIAL IJ (12:39)
[2024-05-22] MEDS: Omnipaque 350 MG/ML 500 ML BTL-Imaging package IJ (12:40)
[2024-05-22 12:57] LABS: ALT 36 U/L (14-59); AST 17 U/L (15-37); Albumin 3.3 g/dL (3.4-5.0); Alkaline Phosphatase 88 U/L (46-116); Anion Gap 5.9 mmol/L (3-11); BUN 20 mg/dL (7-18); Bilirubin, Total 0.39 mg/dL (0.2-1.0); CO2 32.1 mmol/L (21.0-32.0); CREATININE 1.2 mg/dL (0.55-1.02); Calcium 9.5 mg/dL (8.5-10.1); Chloride 100 mmol/L (98-107); Estimated GFR 54.46 (mL/min/1.73m2); Glucose 242 mg/dL (74-106); Potassium 3.8 mmol/L (3.5-5.1); Sodium 138 mmol/L (136-145); Total Protein 7.8 g/dL (6.4-8.2)
[2024-05-22 13:02] LABS: HCG Qual (Serum) Negative
[2024-05-22] MEDS: Amoxicillin 875/Clav. 125 TAB PO (13:34)
[2024-05-22 13:36] VITALS: BP 134/72; PULSE 83; RESP 16; O2SAT 98
[2024-05-22 14:27] VITALS: BP 142/80; PULSE 74; RESP 18; TEMP 36.6; O2SAT 97
== END 2024-05-22 14:33 | disposition home or self-care (01) ==
LOC: ER 11:07 → RED 11:28 → ER 11:28
PROVIDERS: Emergency Provider Emergency Medicine; PCP Nurse Practitioner Family
DX: R10.30 Lower abdominal pain, unspecified (principal); K57.92 Diverticulitis of intestine, part unspecified, without perforation or abscess without bleeding; R51.9 Headache, unspecified
CPT/HCPCS: 36416; 80053; 82962; 99285; 74177; 84703; 85025; 99284

== ENCOUNTER 2024-08-08 07:38 | Day surgery (SDC) | payer OTHER, SELFPAY ==
[2024-08-08] VITALS (41 sets, daily range): BP systolic 134–164; BP diastolic 74–101; PULSE 55–97; RESP 9–33; TEMP 35.9–36.7; O2SAT 92–99; BMI 51.7
[2024-08-08] MEDS: Celecoxib 200 MG CAP PO (08:14)
[2024-08-08] MEDS: Gabapentin 300 MG CAP 600 MG PO (08:14)
[2024-08-08] MEDS: Acetaminophen 500 MG TAB 1000 MG PO (08:14)
[2024-08-08] MEDS: Lactated Ringers 1,000 ML 80 ML IV (08:46)
[2024-08-08] MEDS: Indocyanine green 25 MG VIAL 5 MG IVP (08:46)
--- NOTE | 2024-08-08 09:17 | ANES.PREOP_ITS ---
General Info Date of Service Date Performed: 08/08/24 Height: 5 ft 2 in Weight: 128.3 kg Body Mass Index (BMI): 51.7 Surgical Procedure: Operation Date: 08/08/24 09:10 Proposed Procedure Side Surgeon p Cholecystectomy Laparoscopic Pepito Spence MD Meds Allergies and Home Medications Allergies Allergy/AdvReac Type Severity Reaction Status Date / Time cigarette smoke Allergy unknown Verified 08/08/24 08:12 mold Allergy unknown Verified 08/08/24 08:12 amlodipine AdvReac Intermediate Peripheral Verified 08/08/24 08:12 edema lisinopril AdvReac Intermediate Dry cough Verified 08/08/24 08:12 simvastatin AdvReac Intermediate Myalgia Verified 08/08/24 08:12 tirzepatide AdvReac Intermediate Significant Verified 08/08/24 08:12 abdominal pain semaglutide (From Ozempic) AdvReac Chest pain Verified 08/08/24 08:12 Home Medication ?Medication ?Instructions ?Recorded 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 meter (Headstronguch ##1 10/17/17 Ultra2 Meter kit) cetirizine 10 mg tablet (Zyrtec) 10 mg PO DAILY PRN allergy 06/10/23 symptoms #90 tabs fluticasone propionate 50 2 spray intranasal DAILY PRN 06/10/23 mcg/actuation nasal allergy symptoms #15.8 grams spray,suspension (Allergy Relief (fluticasone)) ipratropium 0.5 mg-albuterol 3 mg 3 ml inhalation QID PRN shortness 06/10/23 (2.5 mg base)/3 mL nebulization of breath or wheezing #90 mL soln levothyroxine 112 mcg tablet 112 mcg PO DAILY #90 tabs 08/29/23 magnesium L-lactate 84 mg 168 mg (2 x 84 mg) PO BID #360 tabs 08/29/23 tablet,extended release rosuvastatin 5 mg tablet 5 mg PO DAILY #90 tabs 08/29/23 sitagliptin phosphate 100 mg 100 mg PO DAILY #90 tabs 08/29/23 tablet (Januvia) blood sugar diagnostic (Honestly.comTouch #200 ea 09/26/23 Ultra Test strips) glipizide 10 mg tablet 10 mg PO BID #180 tabs 09/26/23 metformin 1,000 mg tablet 1,000 mg PO BID #180 tabs 09/26/23 cyclobenzaprine 5 mg tablet 5 mg PO TID PRN muscle spasm #60 10/31/23 tabs diclofenac sodium 50 mg 50 mg PO Q12H pain #90 tabs 02/01/24 tablet,delayed release triamcinolone acetonide 0.1 % See Rx Instructions .Route 02/01/24 topical cream .COMPLEX #80 grams hydrochlorothiazide 25 mg tablet 25 mg PO DAILY #90 tabs 03/21/24 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 meter,continuous #3 ea 05/07/24 (Dexcom G7 Rn Maternity) 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 sensor (Dexcom G7 #3 ea 05/07/24 Sensor device) losartan 100 mg tablet 100 mg PO DAILY #90 tabs 05/07/24 spironolactone 50 mg tablet 50 mg PO DAILY #90 tabs 05/29/24 albuterol sulfate 90 mcg/actuation 2 puff inhalation Q6H PRN 06/14/24 aerosol inhaler shortness of breath or wheezing #54 grams lancets 30 gauge (OneTouch Delica #200 ea 06/14/24 Plus Lancet) omeprazole 20 mg capsule,delayed 20 mg PO DAILY PRN heartburn #90 06/14/24 release caps pen needle, diabetic 31 gauge x #100 ea 06/14/24 5/16 (BD Ultra-Fine Short Pen Needle) fluticasone furoate 100 1 inh inhalation DAILY #30 ea 06/15/24 mcg/actuation blister powder for inhalation liraglutide 0.6 mg/0.1 mL (18 mg/3 1.8 mg (0.3 mL) subcut DAILY #9 mL 06/15/24 mL) subcutaneous pen injector (Victoza 3-Virgil) insulin aspart U-100 100 unit/mL 6 unit (0.06 mL) subcut DAILY #15 07/13/24 (3 mL) subcutaneous pen mL insulin glargine U-300 conc 300 52 unit subcut HS 08/07/24 unit/mL (3 mL) subcutaneous pen (Toujeo Max U-300 SoloStar) Current Visit Medications: Current Medications Generic Name Dose Route Start Last Admin Trade Name Freq PRN Reason Stop Dose Admin Acetaminophen 1,000 mg 08/08/24 06:00 08/08/24 08:14 Acetaminophen 500 Mg Tab PO 08/08/24 23:59 1,000 mg PREOP DARRYL Administration Celecoxib 200 mg 04/02/25 06:00 08/08/24 08:14 Celecoxib 200 Mg Cap PO 08/08/24 23:59 200 mg PREOP DARRYL Administration Gabapentin 600 mg 08/08/24 06:00 08/08/24 08:14 Gabapentin 300 Mg Cap PO 08/08/24 23:59 600 mg PREOP DARRYL Administration Ringer's Solution 1,000 mls @ 80 mls/hr 08/08/24 06:00 08/08/24 08:46 IV 08/08/24 23:59 80 mls/hr INFUSION DARRYL Administration Cefazolin Sodium/Dextrose 2 gm in 50 mls @ 100 mls/hr 08/08/24 06:00 Ancef Duplex IVPB 08/08/24 23:59 PREOP DARRYL IV Miscellaneous Supplies 1 each 08/08/24 06:00 Iv Access IV 08/08/24 23:59 DIRECTED DARRYL Indocyanine Green 5 mg 08/08/24 06:00 08/08/24 08:46 Indocyanine Green 25 Mg Vial IVP 08/08/24 23:59 5 mg DIRECTED DARRYL Administration Sodium Chloride 0 ml 08/08/24 06:00 Normal Saline Flush 10 Ml Syr IV 08/08/24 23:59 PRN PRN Sodium Chloride 0 ml 08/08/24 06:00 Normal Saline 10 Ml Vial IJ 08/08/24 23:59 DIRECTED PRN Sterile Water 0 ml 08/08/24 06:00 Water,Injection,Sterile 10 Ml Vial IJ 08/08/24 23:59 DIRECTED PRN PFSH Active Problems Active Problems: Problem Status Onset Code 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 Type 2 diabetes mellitus with diabetic neuropathy Chronic E11.40 Obstructive sleep apnea syndrome Chronic G47.33 CKD (chronic kidney disease) stage 3, GFR 30-59 ml/min Chronic N18.30 Hypothyroidism Chronic E03.9 Essential hypertension Chronic I10 Asthma Chronic J45.909 Hyperlipidemia Chronic E78.5 Severe obesity (BMI >= 40) Chronic E66.01 Tear of medial meniscus of right knee Chronic ~2020 S83.241A Patellofemoral arthritis of right knee Chronic M17.11 Primary osteoarthritis of left knee Chronic M17.12 Chronic arthralgias of knees and hips Chronic M25.551, M25.552, M25.561, M25.562, G89.29 Hypomagnesemia Chronic E83.42 GERD (gastroesophageal reflux disease) Chronic K21.9 Sigmoid diverticulosis Chronic K57.30 Surgical History Surgical History Status post hysteroscopy (05/16/24) 05/16: Removal of imbedded IUD. History of repair of left hip joint Tobacco Smoking/Tobacco Use Status: Never Passive smoking exposure: Yes Alcohol Alcohol Intake: never Substance Use Substance use: Never Substance use type: does not use Vital Signs and Lab Results Vital Signs Most Recent Vital Signs in EMR: Most Recent Vital Signs Temp Pulse Resp BP Pulse Ox 36.2 C L 97 H 22 162/90 H 98 08/08/24 08:03 08/08/24 08:03 08/08/24 08:03 08/08/24 08:03 08/08/24 08:03 Point of Care Results Point of Care Results: Finger Stick Blood Glucose 233 08/08/24 08:04 Lab Results Blood Type / Crossmatch: No Data to Display Complete Blood Count: No Data to Display Complete Metabolic Panel: Hemoglobin A1c 9.3 % (4.5-5.7) H 07/13/24 09:17 Liver Function Panel: No Data to Display Coagulation Panel: No Data to Display Cardiac Panel: No Data to Display Arterial Blood Gas: No Data to Display Venous Blood Gas: No Data to Display Pancreas Panel: No Data to Display Thyroid Panel: No Data to Display Infectious Disease: No Data to Display Blood Cultures: No Data to Display Toxicology Panel: No Data to Display Panel: No Data to Display Imaging and Studies Imaging and Studies Study information below may be from another EMR and interpreted by another provider. Please see original notes in EMR for more complete details. EKG Summary: 07/06/20 Conclusion Sinus rhythm...normal P axis, V-rate 60- 99 Low voltage, precordial leads...precordial leads <1.0mV Anesthesia Assessment and Plan Anesthesia History Personal History: No History of Anesthesia Complications Family History: No Family History of Anesthesia Complications Exercise Tolerance Exercise Tolerance: Metabolic Equivalents>4 Pertinent Negatives Pertinent Negatives: No Symptoms of GERD, No Major Cardiovascular Symptoms or Complaints and No History of CVA/TIA Cardiac & Pulmonary Exam Cardiac Exam: Normal S1/S2 Heart Sounds Pulmonary Exam: Clear Bilateral Breath Sounds Implantable Cardiac Device Does patient have a Pacemaker or an ICD?: No Airway Exam Known Difficult Airway: No Mallampati Class: 3 Mouth Opening: Normal (> 3cm) Thyromental Distance: Less than 3 cm Neck Range of Motion: Full ROM Neck Circumference: Thick Teeth Condition: Normal Dentition ASA Classification ASA Score: ASA 3 Emergency Case?: No NPO Status NPO Status: NPO Clears >2 hours, Solids >8 hours Status Status: Not Relevant due to Medical History Anesthesia Plan Resuscitation Status: Full Code Anesthesia Technique: General Anesthesia Airway Planned: Endotracheal Tube Monitors Used: Standard Monitors
--- NOTE | 2024-08-08 09:32 | W.SURGCON ---
Date of service: 08/08/24 Time of Service: 09:38 Assessment and Plan Assessment and plan (1) Porcelain gallbladder: Status: Acute Assessment and plan: 54-year-old woman with a porcelain gallbladder due for laparoscopic cholecystectomy. Her and her are in agreement with the indications, the possible risks but also the likely benefits of elective surgical removal of the gallbladder. They want to proceed. Overall plan: Laparoscopic cholecystectomy History of Present Illness Narrative: 54-year-old woman has a porcelain gallbladder on imaging. She has decided to have elective surgical removal because of the high?risk of developing acute cholecystitis and/or significant risk of gallbladder cancer associated with this condition. She has never had intra-abdominal surgery. She has many significant medical conditions. PFSH All Active Problems Porcelain gallbladder (Acute) Type 2 diabetes mellitus with diabetic neuropathy (Chronic) Obstructive sleep apnea syndrome (Chronic) No CPAP, unable to tolerate mask CKD (chronic kidney disease) stage 3, GFR 30-59 ml/min (Chronic) Hypothyroidism (Chronic) Essential hypertension (Chronic) Asthma (Chronic) Hyperlipidemia (Chronic) Severe obesity (BMI >= 40) (Chronic) 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) Followed by [facility] Patellofemoral arthritis of right knee (Chronic) Primary osteoarthritis of left knee (Chronic) Steroid injection: 03/26/2019 Synvisc injection: 09/28/2018 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) Hypomagnesemia (Chronic) GERD (gastroesophageal reflux disease) (Chronic) Sigmoid diverticulosis (Chronic) Surgical History Status post hysteroscopy (05/16/24) 05/16: Removal of imbedded IUD. History of repair of left hip joint Family History Mother Essential hypertension Heart disease Hyperlipidemia Alcohol abuse Father , at 94 of [place] Essential hypertension Diabetes Heart disease Stroke Hyperlipidemia Alcohol abuse Sister Depression Substance abuse Sister No problems noted. Brother No problems noted. Brother No problems noted. Son Asthma Daughter Asthma Depression Daughter Asthma Depression Maternal Grandfather , at 81 Alcohol abuse Diabetes Asthma Stroke Essential hypertension Hyperlipidemia Heart disease Maternal Grandmother , at 83 of brain aneurysm Essential hypertension Heart disease Paternal Grandfather No problems noted. Paternal Grandmother No problems noted. 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 Good insight and understanding into condition. Chest: Non-labored breathing, no wheezing, no visible shortness of breath. Heart: Regular Results Last Vital Signs Temp 97.2 F L 08/08/24 08:03 Pulse 97 H 08/08/24 08:03 Resp 22 08/08/24 08:03 BP 162/90 H 08/08/24 08:03 Pulse Ox 98 08/08/24 08:03
[2024-08-08] MEDS: ceFAZolin 2 GM/50 ML BAG IVPB (10:45)
[2024-08-08] MEDS: Bupivacaine 0.25% Pres-Free 30 ML VIAL (11:14)
[2024-08-08] MEDS: Bupivacaine LIPOSOME/PF 133 MG/10 ML VIAL IJ (11:15)
[2024-08-08] MEDS: Normal Saline 20 ML VIAL (11:16)
--- NOTE | 2024-08-08 11:19 | W.ANESVAS ---
Midline Placement Date Performed: 08/08/24 Procedure Time: 10:12 Requesting Provider: Colleen Toney Procedure Location: Operating Room Sedation Given (Indicate Dose Given): No Sedation given Patient Mental Status: Awake Sterility: Hand Hygiene, Surgical Cap, Surgical Mask and Chlorhexidine Laterality: Left Insertion Site: Cephalic Midline Device: PowerGlide Pro 20G Catheter Length: 10 cm Midline Procedure Procedure: 1% Lidocaine to skin and subcutaneous tissue with 25g needle and Catheter placed without resistance Dressing: Tegaderm Applied and Statlock Applied Blood Return: Present Flushes: Easily Ultrasound: Sterile probe cover and gel used Ultrasound Image Saved?: Yes Number of Attempts (See previous attempts in note section): 1 Procedure Tolerated: No Complications Procedure Outcome: Successful Procedure Comment:: asked to assist with vascular access in a OR prior to induction (prior IV was no longer working). PIV attemtps were made without success. mid line cath placed without difficulty. Performed By: Miguel Angel Carranza
--- NOTE | 2024-08-08 11:55 | GB_PTH ---
PATIENT: Irma Edwards V LOC: [facility] U#:[id number] AGE/SX: 54/F ROOM: RE08/08/[address]: Pepito Spence : 1970 BED: DIS: 08/08/2024 SPEC #: [id number] RECD: 08/08/24 12:56 STATUS: JOAN RESharda #: [id number] GELACIO: 08/08/24 11:[address]: Pepito Spence DEPT: Surgical Specimen RECD BY: Marisol Mak ENTERED: 08/08/24 12:57 SP TYPE: GB NELSON DR: RITESH Bee Tissues: 1 - GALLBLADDER Procedures: GROSS AND MICRO LEVEL 3 DECALCIFICATION Comments: [id number]
--- NOTE | 2024-08-08 12:15 | W.PM.OP ---
Operative Note Operative Note Refer to Anesthesia Record Procedure Description: Procedures performed: 1. Laparoscopic cholecystectomy Pre-op diagnosis: Porcelain gallbladder Postoperative diagnosis: Same Surgeon: Regulo Spence Anesthesia: Pinky Project Manager/Design Manager: Mitzy Indication for procedure: 54-year-old woman with a porcelain gallbladder on imaging. FINDINGS: Very hardened and dense gallbladder with copious amounts of pericholecystic fat. Normal biliary anatomy. Specimens: 1. Gallbladder Complications: None Blood loss: 10 cc Urine output: Not measured Implants/drains: None Procedure in detail: Patient gave written consent and was in agreement with the indications, the likely benefits as well as the potential risks of surgery. She was taken back to the operating room where anesthesia was administered which was tolerated well. She was positioned supine on the operating room table and we then prepped and draped in sterile fashion. We confirmed DVT prophylaxis as well as the appropriate amout of antibiotics had been administered. When we were all in agreement with our timeout we started the procedure. Local anesthetic was injected above the umbilicus. A small stab incision was made just above the umbilicus and a 5 mm trocar was used to enter the abdominal cavity through this. Insufflation was performed which was tolerated well. 2 more trocars were placed under direct visualization in the right hemiabdomen. Local anesthetic was also given in each of the sites. A 12 mm port was placed in the epigastrium under visualization. The fundus of the gallbladder was grasped and retracted towards the patient's left shoulder cephalad. This nicely exposed the biliary plate and the relevant anatomy. There was a copious amount of fat in this region. A combination of blunt and electrocautery dissection was performed isolating the cystic duct and the cystic artery. The cystic duct was very tiny(~1mm) and I actually thought it was just a small vein/lymph vessel. When I divided it with electrocautery, it was obvious that it was a biliary duct because there was some bile staining on it. I put 2 clips on the duct stump At this time I did consider that it could be a duct of Luschka or an accessory duct of some sort because it was so small. I proceeded with caution in the remainder of the cystic plate. TWO additional artery branches were encountered in this dissection and both were clipped and divided. At this point, it remained obvious that the tiny duct I had encountered was the cystic duct and there was no more ciritical anatomy expected. Thus, I removed the rest of the gallbladder off the liver bed using electrocautery in typical and usual fashion. Once removed, the gallbladder was placed in an Endo Catch bag and removed from the abdominal cavity. The specimen was passed off the back table and placed in formalin. I then checked the gallbladder fossa for any bile leaking or any bleeding. Hemostasis was excellent and there was no evidence of any bile leaking from the bed. I looked at the cystic duct stump and the clips remained intact and in good location. The 12 mm port site was then closed with 0 Vicryl in the fascia using a Asher-Davis in figure-8 fashion. I rechecked for hemostasis 1 last time and it remained excellent. We released pneumoperitoneum. I removed the 5 mm trocars. The skin was closed with running Monocryl and Dermabond was placed on top of each site. Patient tolerated the procedure well. The sponge, instruments and sharps counts were correct x3 at the end of the procedure. She was extubated and taken to the PACU in hemodynamically stable condition. Date of Procedure: 08/08/24
--- NOTE | 2024-08-08 12:16 | PDOC.DSDIS_ITS ---
Date of service: 08/08/24 Discharge Plan Disposition Patient Disposition: Home Condition: Good Discharge Details Attending Provider: Pepito Spence Primary Care Provider: Malka Reis Home Meds and New Rx's Prescriptions: No Action cetirizine [Zyrtec] 10 mg tablet 10 mg PO DAILY PRN (Reason: allergy symptoms) Qty: 90 3RF fluticasone propionate [Allergy Relief (fluticasone)] 50 mcg/actuation spray,suspension 2 spray MIKEL DAILY PRN (Reason: allergy symptoms) Qty: 15.8 4RF Rx Instructions: administer into each nostril ipratropium-albuterol 0.5 mg-3 mg(2.5 mg base)/3 mL solution for nebulization 3 ml Inhalation QID PRN (Reason: shortness of breath or wheezing) Qty: 90 4RF Januvia 100 mg tablet 100 mg PO DAILY Qty: 90 3RF rosuvastatin 5 mg tablet 5 mg PO DAILY Qty: 90 3RF levothyroxine 112 mcg tablet 112 mcg PO DAILY Qty: 90 3RF cyclobenzaprine 5 mg tablet 5 mg PO TID PRN (Reason: muscle spasm) Qty: 60 0RF Patient Comments: uses rarely Rx Instructions: Take 1 tablet by mouth three times a day as needed for back pain insulin aspart U-100 100 unit/mL (3 mL) insulin pen 6 unit subcut DAILY Qty: 15 3RF glipizide 10 mg tablet 10 mg PO BID Qty: 180 3RF metformin 1,000 mg tablet 1,000 mg PO BID Qty: 180 3RF (DME) OneTouch Ultra Test Strip See Rx Instructions .ROUTE .MEDSUPPLY Qty: 200 3RF Rx Instructions: Check blood sugar twice a day hydrochlorothiazide 25 mg tablet 25 mg PO DAILY Qty: 90 3RF (DME) Dexcom G7 Contact 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 Operator Misc See Rx Instructions .Route Qty: 3 3RF Rx Instructions: Continuous glucose monitor (DME) Dexcom G7 Sensor Device See Rx Instructions .Route Qty: 3 3RF Rx Instructions: Continuous glucose monitor losartan 100 mg tablet 100 mg PO DAILY Qty: 90 3RF spironolactone 50 mg tablet 50 mg PO DAILY Qty: 90 3RF (DME) 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 meter [OneTouch Ultra2 Meter] 1 EACH kit 1 ea Miscellaneous DAILY Qty: 1 0RF magnesium L-lactate 84 mg tablet extended release 168 mg PO BID Qty: 360 3RF Patient Comments: takes rarely due to sleepyness triamcinolone acetonide 0.1 % cream See Rx Instructions .ROUTE .COMPLEX Qty: 80 1RF Dose Instruction: APPLY 1 APPLICATION TOPICALLY ONCE DAILY NEEDED FOR PRURITUS Rx Instructions: APPLY 1 APPLICATION TOPICALLY ONCE DAILY NEEDED FOR PRURITUS diclofenac sodium 50 mg tablet,delayed release (DR/EC) 50 mg PO Q12H Qty: 90 2RF Patient Comments: takes daily omeprazole 20 mg capsule,delayed release(DR/EC) 20 mg PO DAILY PRN (Reason: heartburn) Qty: 90 3RF (DME) lancets [Nuevo MidstreamTouch Delica Plus Lancet] 30 gauge misc See Rx Instructions .Route Qty: 200 3RF Rx Instructions: Check blood sugar twice a day (DME) pen needle, diabetic [BD Ultra-Fine Short Pen Needle] 31 gauge x 5/16 needle See Rx Instructions .ROUTE .MEDSUPPLY Qty: 100 3RF Rx Instructions: Use with pen daily albuterol sulfate 90 mcg/actuation HFA aerosol inhaler 2 puff Inhalation Q6H PRN (Reason: shortness of breath or wheezing) Qty: 54 4RF Rx Instructions: Ventolin fluticasone furoate 100 mcg/actuation blister with device 1 inh inhalation DAILY Qty: 30 3RF Patient Comments: pt. reports weeks liraglutide [Victoza 3-Virgil] 0.6 mg/0.1 mL (18 mg/3 mL) pen injector 1.8 mg subcut DAILY Qty: 9 11RF insulin glargine U-300 conc [Toujeo Max U-300 SoloStar] 300 unit/mL (3 mL) insulin pen 52 unit subcut HS Discharge Instructions Additional Instructions: Incisions: Keep clean and dry but they do not need to be covered. It is okay to shower but no tub bathing for 1 week. You can peel the glue off after 1 week. Activity: As tolerated. There are no restrictions. Return to work, as tolerated whenever you feel up to it. If you need a work note call the surgery office. Diet: Low Fat diet as tolerated for a few weeks, then slowly transition to regular food. Medications: Resume any/all of your usual/regular home medications Follow-up: Call to schedule a f/u appt in 3-4 weeks. Pain control: Take Tylenol, 1000 mg, every 6 hours on a schedule for the next 3 days. You can use ibuprofen in addition to Tylenol. Ice is okay as needed too. Overall: Symptoms should not be worsening. If you have any difficulty breathing or you have return of symptoms of brought you to the hospital or your pain is otherwise worsening each day and you should call the doctor's office or come into the hospital to be checked out. DS: Diagnosis Discharge Diagnosis (1) Porcelain gallbladder: Status: Acute
[2024-08-08] MEDS: HYDROmorphone 2 MG/ML SYR IVP ×2 (12:58→13:28)
[2024-08-08] MEDS: Normal Saline 10 ML VIAL IJ (12:58)
--- NOTE | 2024-08-08 13:38 | W.ANESPOSTOP ---
Postoperative Evaluation Date, Time and Location Date Performed: 08/08/24 Time Performed: 12:55 Patient Location: PACU Vital Signs Most Recent Imported Vital Signs: Most Recent Vital Signs Temp Pulse Resp BP Pulse Ox 36.5 C 87 12 154/82 H 99 08/08/24 13:35 08/08/24 13:36 08/08/24 13:36 08/08/24 13:35 08/08/24 13:36 Pain Score Most Recent Pain Score: Most Recent Pain Score Pain Level 4 08/08/24 13:27 Assessment Mental Status: Awake (Alert & Oriented to Patient Baseline) Airway and Respiratory Function: Patent airway with normal (patient baseline) respiratory exam Cardiovascular Function: Hemodynamically Stable Hydration Status: Adequately Hydrated Nausea & Vomiting: No Nausea or Vomiting Pain: Pain is Moderate or Severe Postoperative Pain Management: Pain being addressed with medication Peripheral Nerve Block: Patient did not receive a nerve block
== END 2024-08-08 16:15 | disposition home or self-care (01) ==
PROVIDERS: PCP Nurse Practitioner Family; Visit Provider Student in an Organized Health Care Education/Training Program
PROC: 0FT44ZZ Resection of Gallbladder, Percutaneous Endoscopic Approach (ICD-10-PCS; CPT 47562; principal; 2024-08-08 09:00)
DX: K82.8 Other specified diseases of gallbladder (principal)
CPT/HCPCS: 47562; 76942; 88304; 88311; J0131; J0665; J0666; J0690; J1171; J1885; J2003; J2371; J2405; J2704

== ENCOUNTER 2024-08-22 13:46 | Outpatient (REF) | payer OTHER, SELFPAY ==
[2024-08-22 18:08] LABS: COMMENT (LAB VIEW ONLY) 168.88 mg/dL; Microalb ug/mg Crea 8.1 ug/mg Cr
== END 2024-08-22 13:47 | disposition home or self-care (01) ==
LOC: LBN 13:46
PROVIDERS: PCP Nurse Practitioner Family; Visit Provider Nurse Practitioner Family
DX: E11.9 Type 2 diabetes mellitus without complications (principal); Z23 Encounter for immunization; E11.22 Type 2 diabetes mellitus with diabetic chronic kidney disease; E11.40 Type 2 diabetes mellitus with diabetic neuropathy, unspecified; I10 Essential (primary) hypertension
CPT/HCPCS: 82043; 82570

== ENCOUNTER 2024-08-28 09:13 | Emergency (ER) | payer OTHER, SELFPAY ==
[2024-08-28] VITALS (28 sets, daily range): BP systolic 146–201; BP diastolic 78–124; PULSE 82–102; RESP 12–34; TEMP 36.6; O2SAT 91–97
--- NOTE | 2024-08-28 09:17 | W.ED.GENAD ---
Discharge Plan Disposition Patient Disposition: Home Discharge Details Clinical Impression: Diverticulitis, Elevated blood pressure reading, Ovarian cyst, Hypomagnesemia Primary Care Provider: Malka Reis ED Provider: Janette Schneider Home Meds and New Rx's Prescriptions: New amoxicillin-pot clavulanate 875-125 mg tablet 1 tab PO BID Qty: 14 0RF Continued cetirizine [Zyrtec] 10 mg tablet 10 mg PO DAILY PRN (Reason: allergy symptoms) Qty: 90 3RF fluticasone propionate [Allergy Relief (fluticasone)] 50 mcg/actuation spray,suspension 2 spray MIKEL DAILY PRN (Reason: allergy symptoms) Qty: 15.8 4RF Rx Instructions: administer into each nostril ipratropium-albuterol 0.5 mg-3 mg(2.5 mg base)/3 mL solution for nebulization 3 ml Inhalation QID PRN (Reason: shortness of breath or wheezing) Qty: 90 4RF cyclobenzaprine 5 mg tablet 5 mg PO TID PRN (Reason: muscle spasm) Qty: 60 0RF Patient Comments: uses rarely Rx Instructions: Take 1 tablet by mouth three times a day as needed for back pain insulin aspart U-100 100 unit/mL (3 mL) insulin pen 6 unit subcut DAILY Qty: 15 3RF insulin glargine U-300 conc [Toujeo Max U-300 SoloStar] 300 unit/mL (3 mL) insulin pen 52 unit subcut HS Qty: 6 3RF magnesium oxide 400 mg magnesium tablet 400 mg PO DAILY levothyroxine 112 mcg tablet 112 mcg PO DAILY Qty: 90 3RF rosuvastatin 5 mg tablet 5 mg PO DAILY Qty: 90 3RF Januvia 100 mg tablet 100 mg PO DAILY Qty: 90 3RF glipizide 10 mg tablet 10 mg PO BID Qty: 180 3RF hydrochlorothiazide 25 mg tablet 25 mg PO DAILY Qty: 90 3RF losartan 100 mg tablet 100 mg PO DAILY Qty: 90 3RF (DME) 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 meter [citizenmade Ultra2 Meter] 1 EACH kit 1 ea Miscellaneous DAILY Qty: 1 0RF triamcinolone acetonide 0.1 % cream See Rx Instructions .ROUTE .COMPLEX Qty: 80 1RF Dose Instruction: APPLY 1 APPLICATION TOPICALLY ONCE DAILY NEEDED FOR PRURITUS Rx Instructions: APPLY 1 APPLICATION TOPICALLY ONCE DAILY NEEDED FOR PRURITUS albuterol sulfate 90 mcg/actuation HFA aerosol inhaler 2 puff Inhalation Q6H PRN (Reason: shortness of breath or wheezing) Qty: 54 4RF Rx Instructions: Ventolin fluticasone furoate 100 mcg/actuation blister with device 1 inh inhalation DAILY Qty: 30 3RF Patient Comments: pt. reports weeks liraglutide [Victoza 3-Virgil] 0.6 mg/0.1 mL (18 mg/3 mL) pen injector 1.8 mg subcut DAILY Qty: 9 11RF diclofenac sodium 50 mg tablet,delayed release (DR/EC) 50 mg PO Q12H Qty: 90 2RF Patient Comments: takes daily omeprazole 20 mg capsule,delayed release(DR/EC) 20 mg PO DAILY PRN (Reason: heartburn) Qty: 90 3RF (DME) lancets [OneTouch Delica Plus Lancet] 30 gauge misc See Rx Instructions .Route Qty: 200 3RF Rx Instructions: Check blood sugar twice a day spironolactone 50 mg tablet 50 mg PO DAILY Qty: 90 3RF (DME) pen needle, diabetic 31 gauge x 5/16 needle See Rx Instructions .ROUTE .MEDSUPPLY Qty: 100 3RF Rx Instructions: Use with pen daily (DME) FreeStyle Moira 3 [place] Misc See Rx Instructions .Route Qty: 1 3RF Rx Instructions: Continuous glucose monitor (DME) FreeStyle Moira 3 Sensor Device See Rx Instructions .Route Qty: 3 3RF Rx Instructions: Continuous glucose monitor (DME) OneTouch Ultra Test Strip See Rx Instructions .ROUTE .MEDSUPPLY Qty: 200 0RF Rx Instructions: Check blood sugar twice a day Held metformin 1,000 mg tablet 1,000 mg PO BID Qty: 180 3RF Hold Instructions: Resume on 08/31/24. Discharge Instructions Instructions: Clear Liquid Diet, Diverticulitis (DC) Additional Instructions: Call your primary care provider to schedule follow-up appointment within the next week. Please hold your metformin for the next 48 hours to help protect your kidneys after receiving IV contrast. Take antibiotics as scheduled. I recommend following a clear liquid diet for the next 48 hours, then adding in gentle foods. Stay well-hydrated. Continue monitoring your blood sugar and using sliding scale insulin as directed. Your blood pressure was very elevated today. I recommend that you discuss your blood pressure management with your primary care provider, as it can be many risks associated with long-term elevated blood pressure such as heart disease, stroke, kidney dysfunction. Continue take your blood pressure medications as prescribed An incidental finding of an ovarian cyst was noted on your right ovary. 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 Return to emergency care if develop new uncontrollable vomiting, fevers associate with belly pain, worsening abdominal pain, inability to urinate/have bowel movements, blood in your stool, or if you are very worried and need to be rechecked again immediately. Stand Alone Forms: Work Release Referrals: Malka Reis NP [Primary Care Provider] - Discharge Data Discharge Date/Time-TO BE ENTERED AT DEPARTURE: 08/28/24 13:06 HPI General Date/Time Provider Initiated Documentation: 08/28/24 09:15. HPI Narrative: Irma is a 54-year-old female who presents to the emergency department today for evaluation of left-sided abdominal pain. She reports pain started 3 days ago on Easter, is described as a feeling of fullness and pain to the left upper quadrant, left lower quadrant, and suprapubic area. This has been accompanied by chills and increased frequency of urination. She has had regular bowel movements, but says that they have been smaller and hard, today appeared dark in color with no visible blood. A couple of days ago she had an episode of lightheadedness that lasted only a few moments while sitting at the kitchen table, this was not accompanied by any chest pain, diaphoresis, or shortness of breath. Does admit to some nasal congestion/postnasal drip, no other signs of recent illness. Does have a chronic sore throat and cough that is unchanged from baseline. Denies recorded fevers, chest pain, SOB, nausea/vomiting, change in p.o. intake, dysuria. Blood glucose has been higher than usual, today 314, usually in the 200s. She does take insulin (long acting and sliding scale), metformin, glipizide, liraglutide, and sitagliptin_ PMH significant for T2DM, FLIP, CKD stage III, hypothyroidism, HTN, HLD, obesity, asthma, GERD, diverticulosis. Surgical history significant for cholecystectomy. Denies history of GI bleed, complications with diabetes such as DKA/HHS. Physical exam remarkable for tenderness to palpation of LLQ>LUQ and suprapubic area. Abdomen softly obese, nondistended, no rigidity or guarding with normoactive bowel sounds. Easy work of breathing, lung sounds clear bilaterally. Normal heart sounds. Moist mucous membranes. Patient is alert and oriented, no acute distress. DDx includes but is not limited to: Diverticulitis/other colitis, UTI, DKA/HHS, pancreatitis, lower GI bleed, partial bowel obstruction, electrolyte imbalance. I independently interpreted the following tests: EKG reassuring, normal sinus rhythm rate 85, normal intervals. Low voltage throughout, no changes consistent with acute ischemia. Occasional flat/slightly inverted T waves (III, aVF). CBC notable for mild leukocytosis (WBC 11.57). UA, VBG, and CMP reassuring (no change to kidney function). Hypomagnesemia noted (1.3). CT abdomen/pelvis notable for acute diverticulitis in the descending colon without evidence of pneumoperitoneum or abscess, ovarian cyst on the right ovary. While in the emergency department today Chinmay received p.o. Augmentin for treatment of diverticulitis and magnesium supplementation IV. She has been able to tolerate PO without difficulty. As patient has multiple comorbidities, outpatient management without antibiotics would not be appropriate. Patient does not meet inpatient admission requirement. Overall workup today reassuring, consistent with uncomplicated diverticulitis. Patient does have history of hypomagnesemia, says she has cut down on her magnesium supplements; advised her that she should go back to her prescribed dose. Reviewed discharge instructions with patient, including clear liquid diet/symptomatic management, importance of follow-up with PCP, red flags indicating need for return to emergency care Related Data Home Medications ?Medication ?Instructions ?Recorded ?Confirmed 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 meter (citizenmade ##1 10/17/17 08/28/24 Ultra2 Meter kit) cetirizine 10 mg tablet (Zyrtec) 10 mg PO DAILY PRN allergy 06/10/23 08/28/24 symptoms #90 tabs fluticasone propionate 50 2 spray intranasal DAILY PRN 06/10/23 08/28/24 mcg/actuation nasal allergy symptoms #15.8 grams spray,suspension (Allergy Relief (fluticasone)) ipratropium 0.5 mg-albuterol 3 mg 3 ml inhalation QID PRN shortness 06/10/23 08/28/24 (2.5 mg base)/3 mL nebulization of breath or wheezing #90 mL soln cyclobenzaprine 5 mg tablet 5 mg PO TID PRN muscle spasm #60 10/31/23 08/28/24 tabs triamcinolone acetonide 0.1 % See Rx Instructions .Route 02/01/24 08/28/24 topical cream .COMPLEX #80 grams hydrochlorothiazide 25 mg tablet 25 mg PO DAILY #90 tabs 03/21/24 08/28/24 losartan 100 mg tablet 100 mg PO DAILY #90 tabs 05/07/24 08/28/24 albuterol sulfate 90 mcg/actuation 2 puff inhalation Q6H PRN 06/14/24 08/28/24 aerosol inhaler shortness of breath or wheezing #54 grams fluticasone furoate 100 1 inh inhalation DAILY #30 ea 06/15/24 08/28/24 mcg/actuation blister powder for inhalation liraglutide 0.6 mg/0.1 mL (18 mg/3 1.8 mg (0.3 mL) subcut DAILY #9 mL 06/15/24 08/28/24 mL) subcutaneous pen injector ([employer]za 3-Virgil) insulin aspart U-100 100 unit/mL 6 unit (0.06 mL) subcut DAILY #15 07/13/24 08/28/24 (3 mL) subcutaneous pen mL diclofenac sodium 50 mg 50 mg PO Q12H pain #90 tabs 08/13/24 08/28/24 tablet,delayed release lancets 30 gauge (OneTouch Delica #200 ea 08/13/24 08/28/24 Plus Lancet) omeprazole 20 mg capsule,delayed 20 mg PO DAILY PRN heartburn #90 08/13/24 08/28/24 release caps pen needle, diabetic 31 gauge x #100 ea 08/13/24 08/28/24 5/16 spironolactone 50 mg tablet 50 mg PO DAILY #90 tabs 08/13/24 08/28/24 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 sensor (FreeStyle #3 ea 08/21/24 08/28/24 Moira 3 Sensor device) 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,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,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 #1 ea 08/21/24 08/28/24 (FreeStyle Moira 3 [place]) glipizide 10 mg tablet 10 mg PO BID #180 tabs 08/22/24 08/28/24 insulin glargine U-300 conc 300 52 unit (0.1733 mL) subcut HS #6 mL 08/22/24 08/28/24 unit/mL (3 mL) subcutaneous pen (Toujeo Max U-300 SoloStar) levothyroxine 112 mcg tablet 112 mcg PO DAILY #90 tabs 08/22/24 08/28/24 magnesium oxide 400 mg PO DAILY 08/22/24 08/28/24 metformin 1,000 mg tablet 1,000 mg PO BID #180 tabs 08/22/24 08/28/24 rosuvastatin 5 mg tablet 5 mg PO DAILY #90 tabs 08/22/24 08/28/24 sitagliptin phosphate 100 mg 100 mg PO DAILY #90 tabs 08/22/24 08/28/24 tablet (Januvia) blood sugar diagnostic (ShelfFlipTouch #200 ea 08/27/24 08/28/24 Ultra Test strips) amoxicillin 875 mg-potassium 1 tab PO BID #14 tabs 08/28/24 clavulanate 125 mg tablet Previous Rx's ?Medication ?Instructions ?Recorded 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 meter (ShelfFlipTouch ##1 10/17/17 Ultra2 Meter kit) cetirizine 10 mg tablet (Zyrtec) 10 mg PO DAILY PRN allergy 06/10/23 symptoms #90 tabs fluticasone propionate 50 2 spray intranasal DAILY PRN 06/10/23 mcg/actuation nasal allergy symptoms #15.8 grams spray,suspension (Allergy Relief (fluticasone)) ipratropium 0.5 mg-albuterol 3 mg 3 ml inhalation QID PRN shortness 06/10/23 (2.5 mg base)/3 mL nebulization of breath or wheezing #90 mL soln cyclobenzaprine 5 mg tablet 5 mg PO TID PRN muscle spasm #60 10/31/23 tabs triamcinolone acetonide 0.1 % See Rx Instructions .Route 02/01/24 topical cream .COMPLEX #80 grams hydrochlorothiazide 25 mg tablet 25 mg PO DAILY #90 tabs 03/21/24 losartan 100 mg tablet 100 mg PO DAILY #90 tabs 05/07/24 albuterol sulfate 90 mcg/actuation 2 puff inhalation Q6H PRN 06/14/24 aerosol inhaler shortness of breath or wheezing #54 grams fluticasone furoate 100 1 inh inhalation DAILY #30 ea 06/15/24 mcg/actuation blister powder for inhalation liraglutide 0.6 mg/0.1 mL (18 mg/3 1.8 mg (0.3 mL) subcut DAILY #9 mL 06/15/24 mL) subcutaneous pen injector (Victoza 3-Virgil) insulin aspart U-100 100 unit/mL 6 unit (0.06 mL) subcut DAILY #15 07/13/24 (3 mL) subcutaneous pen mL diclofenac sodium 50 mg 50 mg PO Q12H pain #90 tabs 08/13/24 tablet,delayed release lancets 30 gauge (ShelfFlipTouch Delica #200 ea 08/13/24 Plus Lancet) omeprazole 20 mg capsule,delayed 20 mg PO DAILY PRN heartburn #90 08/13/24 release caps pen needle, diabetic 31 gauge x #100 ea 08/13/2409/21 spironolactone 50 mg tablet 50 mg PO DAILY #90 tabs 08/13/24 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 sensor (FreeStyle #3 ea 08/21/24 Moira 3 Sensor device) 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,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,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 #1 ea 08/21/24 (FreeStyle Moira 3 [place]) glipizide 10 mg tablet 10 mg PO BID #180 tabs 08/22/24 insulin glargine U-300 conc 300 52 unit (0.1733 mL) subcut HS #6 mL 08/22/24 unit/mL (3 mL) subcutaneous pen (Toujeo Max U-300 SoloStar) levothyroxine 112 mcg tablet 112 mcg PO DAILY #90 tabs 08/22/24 metformin 1,000 mg tablet 1,000 mg PO BID #180 tabs 08/22/24 rosuvastatin 5 mg tablet 5 mg PO DAILY #90 tabs 08/22/24 sitagliptin phosphate 100 mg 100 mg PO DAILY #90 tabs 08/22/24 tablet (Januvia) blood sugar diagnostic (OneTouch #200 ea 08/27/24 Ultra Test strips) amoxicillin 875 mg-potassium 1 tab PO BID #14 tabs 08/28/24 clavulanate 125 mg tablet Allergies Allergy/AdvReac Type Severity Reaction Status Date / Time cigarette smoke Allergy unknown Verified 08/28/24 09:20 mold Allergy unknown Verified 08/28/24 09:20 amlodipine AdvReac Intermediate Peripheral Verified 08/28/24 09:20 edema lisinopril AdvReac Intermediate Dry cough Verified 08/28/24 09:20 simvastatin AdvReac Intermediate Myalgia Verified 08/28/24 09:20 tirzepatide AdvReac Intermediate Significant Verified 08/28/24 09:20 abdominal pain semaglutide (From Ozempic) AdvReac Chest pain Verified 08/28/24 09:20 General SAMMY: 3 Review of Systems Narrative: see HPI Exam Const General: cooperative, healthy appearing, comfortable, no acute distress, well developed and well groomed Nutritional Appearance: well nourished and obese Orientation: alert and oriented x3 Resp Effort & Inspection: normal respiratory effort and able to speak in complete sentences Auscultation: clear to auscultation bilaterally Cardio Rate: regular rate Rhythm: regular rhythm GI Inspection: normal to inspection Palpation: soft, not firm, no guarding, not rigid and tender in the LLQ and in the LUQ Auscultation: normal bowel sounds Skin General skin exam: no rashes or lesions noted Medical Decision Making Imaging Data Radiologic Study: Radiologist's impression: Exam(s) CT ABDOMEN PELVIS W EXAM: CT ABDOMEN PELVIS W CLINICAL HISTORY: L sided abd pain w/dark stools TECHNIQUE: Imaging Protocol: Axial computed tomography images with coronal and sagittal reformatted images were created and reviewed. CONTRAST MATERIAL: Intravenous: Omnipaque 350 Contrast volume:100 mL Oral: No COMPARISON: CT CT ABDOMEN PELVIS W from 05/22/2024 FINDINGS: ABDOMEN: Lung Bases: No acute abnormality. Liver: There is decreased attenuation of the liver consistent with fatty infiltration. No measurable mass. Portal, Superior Mesenteric, and Splenic Veins: Unremarkable. Gallbladder and Biliary Tract: Status post cholecystectomy. No significant biliary ductal dilatation. Pancreas: Normal density, no abnormal calcifications or inflammatory process. Spleen: Normal. Adrenals: No masses seen. Kidneys: Normal size, contour and axis. No radiodense stones or obstructive uropathy. There is a simple cyst in the right kidney. No follow-up is recommended. Abdominal Aorta: Abdominal portion non-dilated. Atherosclerotic calcification is present. Bowel: There is diverticulosis of the colon. There is focal bowel wall thickening seen in the distal descending colon with pericolonic inflammatory changes consistent with acute diverticulitis. There is no evidence of bowel obstruction. No evidence of appendicitis. Peritoneal Cavity: No ascites, collection or mesenteric inflammatory response. No free air. Lymph Nodes: Within normal limits. Bones: Within normal limits for the patient's age. Soft Tissues: Unremarkable. PELVIS: Bladder: Symmetric distention, no gross wall thickening. Reproductive Organs: There is a new 3.1 cm cyst on the right ovary. This may be physiologic. Reproductive organs are otherwise unremarkable. Lymph Nodes: Within normal limits. Bones: Within normal limits for the patient's age. IMPRESSION: Acute diverticulitis seen in the descending colon without evidence of pneumoperitoneum or abscess. Quality:SDOH Health Related Social Needs: No Data to Display PFSH All Active Problems (Updated 08/28/24 @ 15:15 by Janette Flores) Hypomagnesemia (Acute) Ovarian cyst (Acute) Elevated blood pressure reading (Acute) Diverticulitis (Chronic) Type 2 diabetes mellitus with diabetic neuropathy (Chronic) Obstructive sleep apnea syndrome (Chronic) No CPAP, unable to tolerate mask CKD (chronic kidney disease) stage 3, GFR 30-59 ml/min (Chronic) Hypothyroidism (Chronic) Essential hypertension (Chronic) Asthma (Chronic) Hyperlipidemia (Chronic) Severe obesity (BMI >= 40) (Chronic) 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) Followed by [facility] Patellofemoral arthritis of right knee (Chronic) Primary osteoarthritis of left knee (Chronic) Steroid injection: 03/26/2019 Synvisc injection: 09/28/2018 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 History of repair of left hip joint Family History Mother Essential hypertension Heart disease Hyperlipidemia Alcohol abuse Father , at 94 of [place] Essential hypertension Diabetes Heart disease Stroke Hyperlipidemia Alcohol abuse Sister Depression Substance abuse Sister No problems noted. Brother No problems noted. Brother No problems noted. Son Asthma Daughter Asthma Depression Daughter Asthma Depression Maternal Grandfather , at 81 Alcohol abuse Diabetes Asthma Stroke Essential hypertension Hyperlipidemia Heart disease Maternal Grandmother , at 83 of brain aneurysm Essential hypertension Heart disease Paternal Grandfather No problems noted. Paternal Grandmother No problems noted. 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
--- NOTE | 2024-08-28 09:45 | RT.EKG_ITS ---
APPROVED REPORT Exam: Resting ECG Reason for Exam: episode of dizziness Patient Location: E HR:85 bpm ECG Measurements Heart Rate 85 AXIS GA 174 P 2 QRSd 98 QRS 17 QT 401 T 2 QTc 474 Conclusion Sinus rhythm, rate 85 No interval abnormalities No STEMI Q wave and T wave inversion lead III, unchanged from priors
--- NOTE | 2024-08-28 09:46 | DI.CT_ITS ---
Exam(s) CT ABDOMEN PELVIS W EXAM: CT ABDOMEN PELVIS W CLINICAL HISTORY: L sided abd pain w/dark stools TECHNIQUE: Imaging Protocol: Axial computed tomography images with coronal and sagittal reformatted images were created and reviewed. CONTRAST MATERIAL: Intravenous: Omnipaque 350 Contrast volume:100 mL Oral: No COMPARISON: CT CT ABDOMEN PELVIS W from 05/22/2024 FINDINGS: ABDOMEN: Lung Bases: No acute abnormality. Liver: There is decreased attenuation of the liver consistent with fatty infiltration. No measurable mass. Portal, Superior Mesenteric, and Splenic Veins: Unremarkable. Gallbladder and Biliary Tract: Status post cholecystectomy. No significant biliary ductal dilatation . Pancreas: Normal density, no abnormal calcifications or inflammatory process. Spleen: Normal. Adrenals: No masses seen. Kidneys: Normal size, contour and axis. No radiodense stones or obstructive uropathy. There is a simp le cyst in the right kidney. No follow-up is recommended. Abdominal Aorta: Abdominal portion non-dilated. Atherosclerotic calcification is present. Bowel: There is diverticulosis of the colon. There is focal bowel wall thickening seen in the distal descending colon with pericolonic inflammatory changes consistent with acute diverticulitis. There is no evidence of bowel obstruction. No evidence of appendicitis. Peritoneal Cavity: No ascites, collection or mesenteric inflammatory response. No free air. Lymph Nodes: Within normal limits. Bones: Within normal limits for the patient's age. Soft Tissues: Unremarkable. PELVIS: Bladder: Symmetric distention, no gross wall thickening. Reproductive Organs: There is a new 3.1 cm cyst on the right ovary. This may be physiologic. Reprod uctive organs are otherwise unremarkable. Lymph Nodes: Within normal limits. Bones: Within normal limits for the patient's age. IMPRESSION: Acute diverticulitis seen in the descending colon without evidence of pneumoperitoneum or abscess. RADIATION DOSE DELIVERED: 1,044.91mGy.cm Total DLP DATA REPOSITORY: All CT scans at this facility are submitted to the National Radiology Data Registry (NRDR) Dose Index Registry (DIR) with the [employer] (A[employer]). RADIATION OPTIMIZATION: All CT scans at this facility use at least one of these dose optimization te chniques: automated exposure control; mA and/or kV adjustment per patient size (includes targeted exa ms where dose is matched to clinical indication); or iterative reconstruction.
[2024-08-28 10:29] LABS: Abs Immature Grans 0.04 10^3/uL (0.0-0.06); Absolute Eosinophil Count 0.58 10^3/uL (0.0-0.7); Absolute Monocyte Count 0.61 10^3/uL (0.1-0.8); Basophils % 0.9 %; HGB 13.6 g/dL (11.2-15.7); Immature Grans % 0.3 %; Lymphocytes % 21.3 %; MCH 29.9 pg (27.0-33.0); MCHC 33.2 % (32.0-36.0); MCV 90 fL (80-95); MPV 9.7 fL (8.0-11.0); Monocytes % 5.3 %; Neutrophils % 67.2 %; Platelet Count 352 10^3/uL (130-400); RBC 4.55 10^6/uL (3.93-5.22); RDW 12.7 % (11.7-14.6); RDW-SD 41.4 fL; WBC 11.57 10^3/uL (4.4-10.8)
[2024-08-28] MEDS: Acetaminophen 325 MG TAB 650 MG PO (10:29)
[2024-08-28 10:30] LABS: Absolute Lymphocyte Count 2.46 10^3/uL (1.2-3.4); Absolute Neutrophil Count 7.78 10^3/uL (1.2-6.7); BE (Venous) 6 mmol/L (-2-3); HCO3 (Venous) 32 mmol/L (23-28); O2 Sat (Venous) 65 %; TCO2 (Venous) 29 mmol/L (24-29); pCO2 (Venous) 55 mmHg (41-51); pH (Venous) 7.37 (7.31-7.41); pO2 (Venous) 35 mmHg
[2024-08-28 11:06] LABS: ALT 36 U/L (14-59); AST 15 U/L (15-37); Albumin 3.2 g/dL (3.4-5.0); Alkaline Phosphatase 88 U/L (46-116); Anion Gap 6.5 mmol/L (3-11); BUN 19 mg/dL (7-18); Bilirubin, Total 0.4 mg/dL (0.2-1.0); CO2 30.5 mmol/L (21.0-32.0); CREATININE 1.2 mg/dL (0.55-1.02); Calcium 9.3 mg/dL (8.5-10.1); Chloride 99 mmol/L (98-107); Estimated GFR 54.13 (mL/min/1.73m2); Glucose 295 mg/dL (74-106); Lipase 61 U/L (<78); Magnesium 1.3 mg/dL (1.8-2.4); Potassium 3.6 mmol/L (3.5-5.1); Sodium 136 mmol/L (136-145); Total Protein 7.3 g/dL (6.4-8.2)
[2024-08-28] MEDS: Normal Saline - Diluent 50 ML VIAL IJ (11:21)
[2024-08-28] MEDS: Omnipaque 350 MG/ML 500 ML BTL-Imaging package 100 ML IJ (11:22)
[2024-08-28 11:27] LABS: Bilirubin Negative (Negative); Blood Negative (Negative); Clarity Clear (Clear); Glucose 500 mg/dL (Negative); Ketones Negative (Negative); Leukocyte Esterase Negative (Negative); Nitrite Negative (Negative); Urobilinogen 0.2 mg/dL (Up to 0.2); pH 5.5 (5-8)
[2024-08-28] MEDS: MAGNESIUM SULFATE 2 GM/50 ML BAG IV_INF (11:50)
[2024-08-28] MEDS: Amoxicillin 875/Clav. 125 TAB PO (12:42)
== END 2024-08-28 13:06 | disposition home or self-care (01) ==
PROVIDERS: Emergency Provider Nurse Practitioner Family; PCP Nurse Practitioner Family
DX: K57.32 Diverticulitis of large intestine without perforation or abscess without bleeding (principal); R03.0 Elevated blood-pressure reading, without diagnosis of hypertension; E83.42 Hypomagnesemia; N83.201 Unspecified ovarian cyst, right side
CPT/HCPCS: 80053; 81025; 82805; 83690; 93005; 96374; 99285; 74177; 81003; 83735; 85025; 93010; 99284; J3475

== ENCOUNTER 2024-09-07 13:40 | Outpatient (CLI) | payer OTHER, SELFPAY | END 2024-09-07 13:41 | disposition home or self-care (01) | PROVIDERS: PCP Nurse Practitioner Family; Visit Provider Nurse Practitioner Family | DX: R00.2 Palpitations (principal) | CPT/HCPCS: 93246 ==